=== PATIENT | male | born 1945 | race Caucasian/White ===

== ENCOUNTER 2018-02-10 01:38 | Outpatient (RCR) | payer OTHER, SELFPAY ==
[2018-02-10] MEDS: Normal Saline Flush 10 ML SYR IVP (12:35)
[2018-02-10] MEDS: Heparin 500 UNITS/5 ML SYRINGE IV (12:35)
[2018-02-10 13:04] LABS: Abs Immature Grans 0.01 k/cumm (0.0-0.09); Absolute Basophil Count 0.06 k/cumm (0.0-0.2); Absolute Eosinophil Count 0.32 k/cumm (0.0-0.7); Absolute Lymphocyte Count 1.71 k/cumm (1.2-3.4); Absolute Monocyte Count 0.73 k/cumm (0.11-0.7); Absolute Neutrophil Count 3.35 k/cumm (1.2-6.7); Eosinophils % 5.2; HCT 45.8 % (40.0-50.0); HGB 15.3 g/dL (13.5-17.5); Immature Grans % 0.2; Lymphocytes % 27.7; Mean Corp. HGB Concentration 33.4 g/dL (32.0-36.0); Mean Corpuscular Hemoglobin 29.1 pg (27.0-33.0); Mean Corpuscular Volume 87.2 fL (80-95); Mean Platelet Volume 11.2 fL (8.0-11.0); Monocytes % 11.8; Neutrophils % 54.1; Platelet Count 161 x1000/uL (130-400); RBC 5.25 m/cumm (4.50-6.00); RBC Distribution Width 14.8 % (11.8-14.1); White Blood Cell Count 6.18 k/cumm (4.4-10.8)
[2018-02-10 13:13] LABS: ALT 22 U/L (12-78); AST 25 U/L (15-37); Albumin 3.2 g/dL (3.4-5.0); Alkaline Phosphatase 108 U/L (46-116); Anion Gap 5.3 mmol/L (3-11); BUN 17 mg/dL (7-18); Bilirubin, Total 0.5 mg/dL (0.2-1.0); CO2 25.7 mmol/L (21.0-32.0); CREATININE 1.02 mg/dL (0.70-1.30); Calcium 8.5 mg/dL (8.5-10.1); Chloride 103 mmol/L (98-107); Glucose 104 mg/dL (70-100); Potassium 4.1 mmol/L (3.5-5.1); Sodium 134 mmol/L (136-145); Total Protein 7.7 g/dL (6.4-8.2)
== END 2018-02-27 23:59 | disposition home or self-care (01) ==
LOC: INF 01:38
PROVIDERS: PCP Nurse Practitioner Family; Visit Provider Internal Medicine Medical Oncology
DX: C34.91 Malignant neoplasm of unspecified part of right bronchus or lung (principal); E03.2 Hypothyroidism due to medicaments and other exogenous substances; Z45.2 Encounter for adjustment and management of vascular access device
CPT/HCPCS: 36591; 80053; 85025

== ENCOUNTER 2018-05-19 13:56 | Outpatient (RCR) | payer OTHER, SELFPAY ==
[2018-05-19] MEDS: Heparin 500 UNITS/5 ML SYRINGE IV (14:11)
[2018-05-19] MEDS: Normal Saline Flush 10 ML SYR IVP (14:11)
[2018-05-19 14:21] LABS: Abs Immature Grans 0.02 k/cumm (0.0-0.09); Absolute Basophil Count 0.06 k/cumm (0.0-0.2); Absolute Eosinophil Count 0.22 k/cumm (0.0-0.7); Absolute Monocyte Count 0.72 k/cumm (0.11-0.7); Absolute Neutrophil Count 3.68 k/cumm (1.2-6.7); Basophils % 0.9; Eosinophils % 3.4; HCT 45.6 % (40.0-50.0); HGB 15.1 g/dL (13.5-17.5); Immature Grans % 0.3; Lymphocytes % 26.6; Mean Corp. HGB Concentration 33.1 g/dL (32.0-36.0); Mean Corpuscular Volume 87.7 fL (80-95); Mean Platelet Volume 10.9 fL (8.0-11.0); Monocytes % 11.3; Neutrophils % 57.5; Platelet Count 242 x1000/uL (130-400); RBC Distribution Width 13.9 % (11.8-14.1)
[2018-05-19 14:34] LABS: ALT 23 U/L (12-78); AST 27 U/L (15-37); Alkaline Phosphatase 105 U/L (46-116); Anion Gap 8.6 mmol/L (3-11); BUN 20 mg/dL (7-18); Bilirubin, Total 0.3 mg/dL (0.2-1.0); CO2 25.4 mmol/L (21.0-32.0); CREATININE 0.98 mg/dL (0.70-1.30); Chloride 102 mmol/L (98-107); Glucose 86 mg/dL (70-100); Potassium 4.2 mmol/L (3.5-5.1); Sodium 136 mmol/L (136-145); Total Protein 7.9 g/dL (6.4-8.2)
== END 2018-05-30 23:59 | disposition home or self-care (01) ==
LOC: INF 13:56
PROVIDERS: PCP Nurse Practitioner Family; Visit Provider Internal Medicine Hematology & Oncology
DX: C34.91 Malignant neoplasm of unspecified part of right bronchus or lung (principal); E03.2 Hypothyroidism due to medicaments and other exogenous substances; Z45.2 Encounter for adjustment and management of vascular access device
CPT/HCPCS: 36591; 80053; 85025

== ENCOUNTER 2018-08-18 12:00 | Outpatient (RCR) | payer OTHER, SELFPAY ==
[2018-08-01 13:59] LABS: Carboxyhemoglobin 2.2 %
[2018-08-18] MEDS: Heparin 500 UNITS/5 ML SYRINGE IV (12:25)
[2018-08-18] MEDS: Normal Saline Flush 10 ML SYR IVP (12:25)
[2018-08-18 12:51] LABS: Abs Immature Grans 0.01 k/cumm (0.0-0.09); Absolute Basophil Count 0.07 k/cumm (0.0-0.2); Absolute Eosinophil Count 0.34 k/cumm (0.0-0.7); Absolute Lymphocyte Count 1.41 k/cumm (1.2-3.4); Absolute Monocyte Count 0.64 k/cumm (0.11-0.7); Absolute Neutrophil Count 3.79 k/cumm (1.2-6.7); Basophils % 1.1; Eosinophils % 5.4; HCT 46.9 % (40.0-50.0); HGB 15.6 g/dL (13.5-17.5); Immature Grans % 0.2; Lymphocytes % 22.5; Mean Corp. HGB Concentration 33.3 g/dL (32.0-36.0); Mean Corpuscular Hemoglobin 29.2 pg (27.0-33.0); Mean Corpuscular Volume 87.7 fL (80-95); Mean Platelet Volume 11.4 fL (8.0-11.0); Monocytes % 10.2; Neutrophils % 60.6; Platelet Count 164 x1000/uL (130-400); RBC 5.35 m/cumm (4.50-6.00); RBC Distribution Width 14.5 % (11.8-14.1); White Blood Cell Count 6.26 k/cumm (4.4-10.8)
[2018-08-18 13:25] LABS: ALT 20 U/L (12-78); AST 24 U/L (15-37); Albumin 3.4 g/dL (3.4-5.0); Alkaline Phosphatase 99 U/L (46-116); BUN 17 mg/dL (7-18); Bilirubin, Total 0.5 mg/dL (0.2-1.0); CREATININE 0.95 mg/dL (0.70-1.30); Calcium 8.8 mg/dL (8.5-10.1); Chloride 103 mmol/L (98-107); Glucose 99 mg/dL (70-100); Potassium 4.1 mmol/L (3.5-5.1); Sodium 137 mmol/L (136-145); T4 7.8 ug/dL (4.5-12.5); TSH 1.28 uIU/mL (0.358-3.74); Total Protein 7.7 g/dL (6.4-8.2)
== END 2018-08-28 23:59 | disposition home or self-care (01) ==
LOC: INF 12:00
PROVIDERS: PCP Nurse Practitioner Family; Visit Provider Internal Medicine Hematology & Oncology
DX: C34.91 Malignant neoplasm of unspecified part of right bronchus or lung (principal); E03.2 Hypothyroidism due to medicaments and other exogenous substances; Z45.2 Encounter for adjustment and management of vascular access device; R53.83 Other fatigue
CPT/HCPCS: 36591; 80053; 82375; 84436; 84443; 85025

== ENCOUNTER 2018-11-11 01:58 | Outpatient (CLI) | payer OTHER, SELFPAY ==
--- NOTE | 2018-11-11 15:50 | DI.RAD_ITS ---
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 The aorta is again noted to be tortuous. A port is seen, unchanged. There is scarring bilaterally in both upper lobes. No discrete mass or infiltrate is visible. There are stable compression fractures in the thoracic spine. IMPRESSION: Bilateral upper lobe scarring. If there is further concern of a mass, CT should be performed.
== END 2018-11-11 02:18 ==
PROVIDERS: PCP Nurse Practitioner Family; Visit Provider Internal Medicine Hematology & Oncology
DX: C34.91 Malignant neoplasm of unspecified part of right bronchus or lung (principal); J98.4 Other disorders of lung
CPT/HCPCS: 71046

== ENCOUNTER 2018-11-24 12:46 | Outpatient (RCR) | payer OTHER, SELFPAY ==
[2018-11-24] MEDS: Normal Saline Flush 10 ML SYR IVP (13:05)
[2018-11-24] MEDS: Heparin 500 UNITS/5 ML SYRINGE IV (13:06)
[2018-11-24 13:11] LABS: Abs Immature Grans 0.01 k/cumm (0.0-0.09); Absolute Basophil Count 0.07 k/cumm (0.0-0.2); Absolute Eosinophil Count 0.41 k/cumm (0.0-0.7); Absolute Lymphocyte Count 1.56 k/cumm (1.2-3.4); Absolute Monocyte Count 0.88 k/cumm (0.11-0.7); Absolute Neutrophil Count 3.85 k/cumm (1.2-6.7); HCT 47.5 % (40.0-50.0); HGB 15.9 g/dL (13.5-17.5); Immature Grans % 0.1; Mean Corp. HGB Concentration 33.5 g/dL (32.0-36.0); Mean Corpuscular Hemoglobin 29.3 pg (27.0-33.0); Mean Corpuscular Volume 87.5 fL (80-95); Mean Platelet Volume 11.5 fL (8.0-11.0); Neutrophils % 56.9; Platelet Count 170 x1000/uL (130-400); RBC 5.43 m/cumm (4.50-6.00); RBC Distribution Width 14.2 % (11.8-14.1); White Blood Cell Count 6.78 k/cumm (4.4-10.8)
[2018-11-24 13:21] LABS: ALT 19 U/L (12-78); AST 18 U/L (15-37); Albumin 3.3 g/dL (3.4-5.0); Alkaline Phosphatase 104 U/L (46-116); Anion Gap 8.2 mmol/L (3-11); BUN 17 mg/dL (7-18); Bilirubin, Total 0.5 mg/dL (0.2-1.0); CO2 25.8 mmol/L (21.0-32.0); CREATININE 1.01 mg/dL (0.70-1.30); Calcium 8.9 mg/dL (8.5-10.1); Chloride 104 mmol/L (98-107); Glucose 91 mg/dL (70-100); Potassium 4.4 mmol/L (3.5-5.1); Sodium 138 mmol/L (136-145); Total Protein 7.6 g/dL (6.4-8.2)
== END 2018-11-27 23:59 | disposition home or self-care (01) ==
LOC: INF 12:46
PROVIDERS: PCP Nurse Practitioner Family; Visit Provider Internal Medicine Hematology & Oncology
DX: C34.91 Malignant neoplasm of unspecified part of right bronchus or lung (principal); Z45.2 Encounter for adjustment and management of vascular access device
CPT/HCPCS: 36591; 80053; 85025

== ENCOUNTER 2019-03-14 01:29 | Outpatient (CLI) | payer OTHER, SELFPAY ==
--- NOTE | 2019-03-14 15:15 | DI.RAD_ITS ---
EXAM: XR CHEST 2V PA LATERAL CLINICAL HISTORY: F/U RT LUNG CA,C34.91 TECHNIQUE: COMPARISON: XR CHEST 2V PA LATERAL from 11/11/2018 FINDINGS: There is a left subclavian indwelling catheter. Heart is not enlarged. There are changes of pulmona ry scarring. No change in appearance comparison with previous chest film of 11/11/2018. No pleural effusion seen. Midthoracic compression fracture is again noted. IMPRESSION: No change from 11/11/2018.
== END 2019-03-14 01:49 ==
PROVIDERS: PCP Nurse Practitioner Family; Visit Provider Internal Medicine Hematology & Oncology
DX: C34.91 Malignant neoplasm of unspecified part of right bronchus or lung (principal); J98.4 Other disorders of lung
CPT/HCPCS: 71046

== ENCOUNTER 2019-03-23 12:02 | Outpatient (RCR) | payer OTHER, SELFPAY ==
[2019-03-23] MEDS: Normal Saline Flush 10 ML SYR 30 ML IVP (12:20)
[2019-03-23] MEDS: Heparin 500 UNITS/5 ML SYRINGE (12:25)
[2019-03-23 13:00] LABS: Abs Immature Grans 0.01 k/cumm (0.0-0.09); Absolute Basophil Count 0.06 k/cumm (0.0-0.2); Absolute Eosinophil Count 0.27 k/cumm (0.0-0.7); Absolute Lymphocyte Count 1.33 k/cumm (1.2-3.4); Absolute Monocyte Count 0.67 k/cumm (0.11-0.7); Absolute Neutrophil Count 3.63 k/cumm (1.2-6.7); Eosinophils % 4.5; HCT 47.7 % (40.0-50.0); HGB 15.9 g/dL (13.5-17.5); Immature Grans % 0.2; Lymphocytes % 22.3; Mean Corp. HGB Concentration 33.3 g/dL (32.0-36.0); Mean Corpuscular Hemoglobin 29.1 pg (27.0-33.0); Mean Corpuscular Volume 87.4 fL (80-95); Mean Platelet Volume 11.6 fL (8.0-11.0); Monocytes % 11.2; Neutrophils % 60.8; Platelet Count 188 x1000/uL (130-400); RBC 5.46 m/cumm (4.50-6.00); RBC Distribution Width 14.1 % (11.8-14.1); White Blood Cell Count 5.97 k/cumm (4.4-10.8)
[2019-03-23 13:07] LABS: ALT 26 U/L (16-63); AST 25 U/L (15-37); Albumin 3.5 g/dL (3.4-5.0); Alkaline Phosphatase 96 U/L (46-116); Anion Gap 11.4 mmol/L (3-11); BUN 14 mg/dL (7-18); Bilirubin, Total 0.5 mg/dL (0.2-1.0); CO2 22.6 mmol/L (21.0-32.0); CREATININE 0.99 mg/dL (0.70-1.30); Chloride 105 mmol/L (98-107); Glucose 86 mg/dL (70-100); Potassium 4.1 mmol/L (3.5-5.1); Sodium 139 mmol/L (136-145); Total Protein 7.7 g/dL (6.4-8.2)
== END 2019-03-30 23:59 | disposition home or self-care (01) ==
LOC: INF 12:02
PROVIDERS: PCP Nurse Practitioner Family; Visit Provider Internal Medicine Hematology & Oncology
DX: C34.91 Malignant neoplasm of unspecified part of right bronchus or lung (principal); Z45.2 Encounter for adjustment and management of vascular access device
CPT/HCPCS: 36591; 80053; 85025

== ENCOUNTER 2019-07-26 01:41 | Outpatient (CLI) | payer OTHER, SELFPAY ==
--- NOTE | 2019-07-26 | DI.CT_ITS ---
EXAM: CT CHEST/ABD/PEL W CLINICAL HISTORY: RT LUNG CA, C34.91, LIVER METS, C78.7 TECHNIQUE: Post IV and oral contrast. COMPARISON: PET/CT STANDARD (SKULL from 07/15/2015 and July,. CHEST ABD PELVIS WITH CONTRAST from 11/19/2015 CHEST ABD PELVIS WITH CONTRAST from 02/18/2016 ABD PELVIS WITH CONTRAST from 05/21/2016 XR CHEST 2V PA LATERAL from 03/14/2019 FINDINGS: Chest CT: Severe underlying emphysematous changes are again noted. There are areas of bilateral pulmo nary scarring. No mass or adenopathy is seen. There is no pleural or pericardial effusion. The heart size is normal. A port is noted over the left upper chest tip in the lower SVC. There are severe midt horacic compression fractures, stable from recent chest x-ray. Abdomen and pelvic CT: Tiny cyst is again noted in the caudate lobe of the liver. The spleen, gallbla dder, adrenals, pancreas and kidneys are unremarkable. There is an abdominal aortic aneurysm with mur al thrombus measuring 4.5 cm in diameter, not significantly changed from the previous exam. No bowel distention or wall thickening is seen. There is a moderate to increased quantity of stool. The bladde r and prostate are unremarkable. There is a mild compression fracture at L3, which appears new when c ompared with 2017. No lytic or blastic bony lesions are identified. IMPRESSION: 1. Severe emphysematous changes and bilateral areas of pulmonary scarring. No recurrence or metastati c disease or adenopathy. 2. No evidence of metastatic disease in the abdomen or pelvis. There is a stable 4.5 centimeter sacc ular abdominal aortic aneurysm.
[2019-07-26 12:47] LABS: Abs Immature Grans 0.01 k/cumm (0.0-0.09); Absolute Basophil Count 0.04 k/cumm (0.0-0.2); Absolute Eosinophil Count 0.38 k/cumm (0.0-0.7); Absolute Monocyte Count 0.64 k/cumm (0.11-0.7); Absolute Neutrophil Count 3.89 k/cumm (1.2-6.7); Basophils % 0.6; Immature Grans % 0.2 %; Mean Corp. HGB Concentration 33.3 g/dL (32.0-36.0); Mean Corpuscular Hemoglobin 29.1 pg (27.0-33.0); Mean Corpuscular Volume 87.4 fL (80-95); Monocytes % 10.1; Neutrophils % 61.1; Platelet Count 192 x1000/uL (130-400); RBC 5.49 m/cumm (4.50-6.00); RBC Distribution Width 14.2 % (11.8-14.1); White Blood Cell Count 6.36 k/cumm (4.4-10.8)
[2019-07-26 13:07] LABS: ALT 20 U/L (16-63); AST 23 U/L (15-37); Albumin 3.4 g/dL (3.4-5.0); Alkaline Phosphatase 97 U/L (46-116); Anion Gap 7.5 mmol/L (3-11); BUN 19 mg/dL (7-18); Bilirubin, Total 0.7 mg/dL (0.2-1.0); CO2 25.5 mmol/L (21.0-32.0); CREATININE 0.97 mg/dL (0.70-1.30); Calcium 8.6 mg/dL (8.5-10.1); Chloride 105 mmol/L (98-107); Glucose 86 mg/dL (74-106); Potassium 4.2 mmol/L (3.5-5.1); Sodium 138 mmol/L (136-145); TSH 0.91 uIU/mL (0.36-3.74); Total Protein 7.5 g/dL (6.4-8.2)
[2019-07-26] MEDS: Omnipaque 350 MG/ML 100 ML BTL IV (13:45)
[2019-07-26] MEDS: Normal Saline - Diluent 50 ML VIAL IV (13:46)
[2019-07-26] MEDS: Breeza Beverage 473 ML BTL PO ×2 (13:46→13:47)
[2019-07-26] MEDS: Omnipaque 350 MG/ML 50 ML BTL PO (13:47)
== END 2019-07-26 02:01 ==
PROVIDERS: PCP Nurse Practitioner Family; Visit Provider Internal Medicine Hematology & Oncology
DX: C34.91 Malignant neoplasm of unspecified part of right bronchus or lung (principal); C78.7 Secondary malignant neoplasm of liver and intrahepatic bile duct; J43.8 Other emphysema; J98.4 Other disorders of lung; K76.89 Other specified diseases of liver; I71.4 Abdominal aortic aneurysm, without rupture
CPT/HCPCS: 74177; 80053; 71260; 84443; 85025; J3490; Q9967

== ENCOUNTER 2019-07-26 01:57 | Outpatient (RCR) | payer OTHER, SELFPAY | END 2019-07-29 23:59 | disposition home or self-care (01) | LOC: INF 01:57 | PROVIDERS: PCP Nurse Practitioner Family; Visit Provider Internal Medicine Hematology & Oncology | DX: R69 Illness, unspecified (principal) ==

== ENCOUNTER 2020-01-10 14:30 | Outpatient (CLI) | payer OTHER, SELFPAY ==
--- NOTE | 2020-01-10 15:12 | DI.RAD_ITS ---
EXAM: XR CHEST 2V PA LATERAL CLINICAL HISTORY: SQUAMOUS CELL CARCINOMA OF RT LUNG, C34.91, F/U TECHNIQUE: 2D digital imaging was performed. COMPARISON: CR XR CHEST 2V PA LATERAL from 03/14/2019 FINDINGS: MEDIASTINUM: Normal. HEART: Normal. PULMONARY VASCULATURE: Tortuosity of the thoracic aorta is again noted. LUNGS: There is stable pulmonary scarring. COPD. The appearance of the lungs is unchanged compared to the prior examination. PLEURAL SPACE: No pleural effusion or pneumothorax. BONE:There are stable mid thoracic compression fracture deformities. Stable degenerative changes are seen in the spine. OTHER FINDINGS:The tip of the indwelling central venous catheter is in good position in the superior vena cava. IMPRESSION: No acute pulmonary process. No change in appearance of the chest x-ray since 03/14/2019. DATA REPOSITORY: RADIATION DOSE DELIVERED:
== END 2020-01-10 14:50 ==
PROVIDERS: PCP Nurse Practitioner Family; Visit Provider Internal Medicine Hematology & Oncology
DX: C34.91 Malignant neoplasm of unspecified part of right bronchus or lung (principal); J44.9 Chronic obstructive pulmonary disease, unspecified
CPT/HCPCS: 71046

== ENCOUNTER 2020-01-18 01:02 | Outpatient (RCR) | payer OTHER, SELFPAY ==
[2020-01-18] MEDS: Normal Saline Flush 10 ML SYR IVP (09:19)
[2020-01-18] MEDS: Heparin 500 UNITS/5 ML SYRINGE IV (09:19)
[2020-01-18 09:25] LABS: Abs Immature Grans 0.02 10^3/uL (0.0-0.06); Absolute Basophil Count 0.06 10^3/uL (0.0-0.2); Absolute Eosinophil Count 0.39 10^3/uL (0.0-0.7); Absolute Lymphocyte Count 1.28 10^3/uL (1.2-3.4); Absolute Monocyte Count 0.64 10^3/uL (0.1-0.8); Absolute Neutrophil Count 4.09 10^3/uL (1.2-6.7); Basophils % 0.9; HCT 49.3 % (40.0-50.0); Immature Grans % 0.3; Lymphocytes % 19.8; MCH 29.1 pg (27.0-33.0); MCHC 32.5 % (32.0-36.0); MCV 89.8 fL (80-95); Monocytes % 9.9; Neutrophils % 63.1; Nucleated RBC 0 %; Platelet Count 167 10^3/uL (130-400); RBC 5.49 10^6/uL (4.36-5.78); RDW 13.8 % (11.8-14.1); RDW-SD 45.2 fL; WBC 6.48 10^3/uL (4.4-10.8)
[2020-01-18 09:46] LABS: ALT 20 U/L (16-63); AST 20 U/L (15-37); Albumin 3.2 g/dL (3.4-5.0); Alkaline Phosphatase 94 U/L (46-116); Anion Gap 9.2 mmol/L (3-11); BUN 16 mg/dL (7-18); Bilirubin, Total 0.6 mg/dL (0.2-1.0); CO2 24.8 mmol/L (21.0-32.0); CREATININE 1.09 mg/dL (0.70-1.30); Calcium 8.9 mg/dL (8.5-10.1); Chloride 104 mmol/L (98-107); Glucose 109 mg/dL (74-106); Sodium 138 mmol/L (136-145); TSH 1.21 uIU/mL (0.36-3.74); Total Protein 7.5 g/dL (6.4-8.2)
== END 2020-01-29 23:59 | disposition home or self-care (01) ==
LOC: INF 01:02
PROVIDERS: PCP Nurse Practitioner Family; Visit Provider Internal Medicine Hematology & Oncology
DX: C34.91 Malignant neoplasm of unspecified part of right bronchus or lung (principal); Z45.2 Encounter for adjustment and management of vascular access device
CPT/HCPCS: 36591; 80053; 84443; 85025

== ENCOUNTER 2020-03-12 16:27 | Inpatient (IN) | payer OTHER, SELFPAY ==
[2020-03-12] VITALS (28 sets, daily range): BP systolic 105–141; BP diastolic 60–90; PULSE 76–98; RESP 2–32; TEMP 36.8–38.5; O2SAT 74–98
--- NOTE | 2020-03-12 16:30 | DI.RAD_ITS ---
EXAM: XR PORTABLE CHEST AP CLINICAL HISTORY: SOB TECHNIQUE: 2D digital imaging was performed. COMPARISON: CR XR CHEST 2V PA LATERAL from 01/10/2020 FINDINGS: MEDIASTINUM: Normal. HEART: Normal. PULMONARY VASCULATURE: Normal. There is tortuosity of the thoracic aorta. LUNGS: Pulmonary fibrotic changes are present. There is hyperexpansion of the lungs suggesting under lying COPD. Mildly increased markings are seen in the lungs particularly in the left upper lobe. Th yoni findings may represent a developing pneumonia or interstitial edema. PLEURAL SPACE: No pleural effusion or pneumothorax. BONE:Within normal limits for the patient's age. OTHER FINDINGS:The patient's indwelling central venous catheter is stable. IMPRESSION: Increased lung markings present particularly in the left upper lobe. A developing infiltrate or inte rstitial edema cannot be excluded. Please correlate clinically. DATA REPOSITORY: RADIATION DOSE DELIVERED:
--- NOTE | 2020-03-12 16:30 | RT.EKG_ITS ---
APPROVED REPORT Exam: Resting ECG Patient Location: E HR:87 bpm ECG Measurements Heart Rate 87 AXIS IA 138 P 107 QRSd 107 QRS 70 QT 372 T 45 QTc 448 Conclusion Sinus rhythm...normal P axis, V-rate 60- 99 Probable inferior infarct, old...Q>35mS, II III aVF. No STEMI. I have reviewed and interpreted ECG and agree with software generated interpretation.
--- NOTE | 2020-03-12 16:31 | ED.GENADUL_ITS ---
Discharge Plan Disposition Patient Disposition: [facility] INPATIENT Condition: Poor Discharge Details Chief Complaint: SOB Clinical Impression: Pneumonia, Acute exacerbation of chronic obstructive pulmonary disease (COPD), Hypoxia Admit Date/Time: 03/12/20 18:07 Admit Provider: David Cardoza Attending Provider: David Cardoza Primary Care Provider: Priya Mendoza ED Provider: Xochilt Montesinos Discharge Instructions Activity:: Activity as Tolerated Equipment/Supplies:: nebulizer machine Diet:: As Tolerated Discharge Orders Discharge Orders: Discharge Order (Routine); Ordered 03/14/20 Ordered By: Jessica Lee Discharge Data Discharge Date/Time-TO BE ENTERED AT DEPARTURE: 03/12/20 18:55 Medical Decision Making Patient is a 75 year old male, accompanied by his , with c/c of SOB. Emmy hoffman hx of lung cancer and COPD. He states that he has had increasing SOB with associated cough x 1 week. reports fever at home with T max 101. He has had no known sick contacts. No recent travel. Denies CP. No GI upset. Alannah has inhaler at home but states that he has not been taking any of his medications. He has not received treatment for his lung cancer in 3 years. He is not an active smoker. Is a gamboa andhas continued to work. Presents today becuase the SOB has been interferring with his ADLS. On exam, patient appears to be in moderate respiratory distress. He is speaking in 1-2 word phrases. He was initially hypoxic in the 70s but did resond well to NC applied by nursing staff. He has accessory muscle usage. Patient has very diminished breath sounds throughout. Respiratory requested and at bed side. Patient receiving nebulizer, reports feeling improved although he continues to appear SOB. ECG reveals NSR, no acute infarct noted. CXR reviewed by radiologist: FINDINGS: Tubes, catheters and devices: Left indwelling central venous catheter with tip in SVC. Lungs: New patchy bilateral reticulonodular parenchymal opacities in both lungs, most marked in the upper lungs. These are likely due to infection or inflammation. Changes of emphysema. Pleural space: Unremarkable. No pleural effusion. No pneumothorax. Heart/Mediastinum: Unremarkable. No cardiomegaly. Vasculature: Calcified and tortuous thoracic aorta. Bones/joints: Bones are demineralized. IMPRESSION: 1. New patchy bilateral reticulonodular opacities, most marked in the upper lungs. 2. Emphysema. Labs reviewed. Patient has leukocytosis a white count of 11.8. But slightly low at 134. Patient does have a mild anion gap of 12. Troponin less than 0.05. Patient's history and imaging is most concerning for pneumonia. We will begin treatment with IV antibiotics. Patient is reporting feeling improved after 2 duo nebs delivered by respiratory therapy. However, I am quite concerned that patient is currently requiring oxygen continues to be short of breath with minimal movements. Admission would be appropriate. Will consult with hospitalist. Discussed case with hospitalist who agreed to admission. COVID testing sent HPI General Mode of arrival: wheelchair . Date/Time Provider Initiated Documentation: 03/12/20 16:31 . Limitations to Documentation: no limitations . Information obtained by: patient, family () and RN notes reviewed . History of Present Illness 75 year old M presents to the emergency department with the chief complaint of shortness of breath, described as severe and similar to prior episodes (feels similar to when patient has had pneumonia historically), with intensity rated at 1 (endorses small amount of right sided chest pain). Quality is described as aching, and is localized to the chest. Patient re ports no radiation. Patient started experiencing this day(s) (5) and it has been constant. Rest improves symptom(s), Movement worsens symptoms . Patient notes chest pain, cough, fever/chills, malaise and shortness of breath; denies diaphoresis, headaches, loss of appetite and nausea/vomiting. Patient did receive the following treatments prior to arrival, none Related Data Home Medications Medication Instructions Recorded Confirmed fluticasone propion-salmeterol 1 ea INHALATION BID 01/29/15 03/12/20 [Advair Diskus] aspirin 81 mg PO DAILY 03/12/20 03/12/20 Spiriva with HandiHaler 1 cap INHALATION DAILY 03/13/20 03/13/20 albuterol sulfate 2 puff INHALATION Q6H PRN 03/13/20 03/13/20 cefpodoxime 200 mg PO BID #10 tab 03/14/20 doxycycline hyclate 100 mg PO Q12H #10 cap 03/14/20 levalbuterol HCl 1.25 mg UPD Q6H PRN PRN #90 ml 03/14/20 omeprazole 20 mg PO DAILY #30 tab 03/14/20 prednisone See Rx Instructions .ROUTE 03/14/20 .COMPLEX #7 tab Previous Rx's Medication Instructions Recorded cefpodoxime 200 mg PO BID #10 tab 03/14/20 doxycycline hyclate 100 mg PO Q12H #10 cap 03/14/20 levalbuterol HCl 1.25 mg UPD Q6H PRN PRN #90 ml 03/14/20 omeprazole 20 mg PO DAILY #30 tab 03/14/20 prednisone See Rx Instructions .ROUTE 03/14/20 .COMPLEX #7 tab Allergies Allergy/AdvReac Type Severity Reaction Status Date / Time No Known Allergies Allergy Unverified 03/12/20 16:40 Review of Systems Constitutional Constitutional: Reports as per HPI, Reports chills, Reports fever(s), Denies headache(s), Denies lethargy and Denies poor appetite Eyes Eyes: Denies change in vision ENT Ears, Nose, Mouth, and Throat: Denies dizziness and Denies headache(s) Cardiovascular Cardiovascular: Reports as per HPI, Denies chest pain, Denies chest pain at rest, Denies chest pain with activity, Denies irregular heart rhythm, Reports lightheadedness, Denies radiating jaw, neck or arm pain, Reports dyspnea and Reports dyspnea on exertion Respiratory Respiratory: Reports as per HPI, Denies chest congestion, Denies cough, Denies pain on inspiration, Denies pain with cough, Reports dyspnea, Reports dyspnea on exertion and Denies wheezing Gastrointestinal Gastrointestinal: Reports as per HPI, Denies abdominal pain, Denies diarrhea, Denies nausea and Denies vomiting Genitourinary Genitourinary: Denies system reviewed and no additional complaints, except as documented (denies change in urinary habits) Musculoskeletal Musculoskeletal: Reports as per HPI and Denies back pain Integumentary/Breasts Skin/Breast: Reports as per HPI and Denies rash Neurologic Neurologic: Reports as per HPI, Denies dizziness and Denies headache(s) Allergic/Immunologic Allergic/Immunologic: Denies wheezing PFSH Medical History Anemia associated with chemotherapy Chronic respiratory failure with hypoxia COPD (chronic obstructive pulmonary disease) COPD (chronic obstructive pulmonary disease) Lung cancer Squamous cell lung cancer Surgical History Mediport placement (~01/2015) DR. MARCELINO HERRERA Social History Smoking/Tobacco Use Status: Former Tobacco Use Alcohol Intake: current Alcohol Intake frequency: a few times a month Drug use: Never Substance use type: does not use Do you feel safe at home: Yes Do you feel safe in your relationship?: Yes Exam Const General: cooperative, not healthy appearing, well developed, acute distress respiratory, anxious and ill appearing acutely Nutritional Appearance: well nourished and thin Orientation: alert, awake and oriented x3 HENMT Head: normal to inspection Ears: hearing grossly normal bilaterally Mouth: moist mucous membranes Chest Chest: normal inspection of the chest, normal palpation of entire chest wall and no crepitus Resp Effort & Inspection: not able to speak in complete sentences (1-2 word answers), no cough, labored, pursed lip breathing, retractions, tachypneic and uses accessory muscles Auscultation: diminished lung sounds bilaterally throughout, no rales, no rhonchi and no wheezes Cardio Rate: regular rate Rhythm: regular rhythm Heart Sounds: S1 normal and S2 normal GI Inspection: normal to inspection, no edema and non-distended Palpation: soft, no hepatosplenomegaly, not firm, no guarding, not rigid and nontender Auscultation: normal bowel sounds Back/Spine/Pelvis Back: no CVA tenderness Thoracic/Lumbar Spine: thoracic and lumbar spine normal to inspection Skin General skin exam: no rashes or lesions noted Trauma: no lacerations or abrasions Neuro General: patient alert, patient awake and patient oriented x3 Cognition: normal cognition Speech: speech normal Gait: normal gait Extrem General: normal to inspection, capillary refill normal, no pedal edema, no calf tenderness and normal gait Psych Appearance: grossly normal and well kempt Mental Status: mental status grossly normal Speech and Movement: speech and movement normal
[2020-03-12 16:57] LABS: Abs Immature Grans 0.07 10^3/uL (0.0-0.06); Absolute Basophil Count 0.04 10^3/uL (0.0-0.2); Absolute Eosinophil Count 0.02 10^3/uL (0.0-0.7); Absolute Monocyte Count 1.54 10^3/uL (0.1-0.8); Basophils % 0.3; Eosinophils % 0.2; HGB 14.6 g/dL (13.5-17.5); Immature Grans % 0.6; Lymphocytes % 7.6; MCH 29.3 pg (27.0-33.0); MCHC 33.2 % (32.0-36.0); MCV 88.2 fL (80-95); MPV 11.9 fL (8.0-11.0); Neutrophils % 78.3; Nucleated RBC 0 %; Platelet Count 168 10^3/uL (130-400); RBC 4.99 10^6/uL (4.36-5.78); RDW 13.4 % (11.8-14.1); RDW-SD 43.5 fL; WBC 11.87 10^3/uL (4.4-10.8)
[2020-03-12] MEDS: Albuterol/Ipratropium 3 ML UPD VIAL UPD ×2 (17:03→17:12)
[2020-03-12 17:15] LABS: Absolute Neutrophil Count 9.29 10^3/uL (1.2-6.7)
[2020-03-12 17:16] LABS: Diff Comment Agrees w/ Instrument; RBC Morphology Normal
[2020-03-12 17:25] LABS: ALT 18 U/L (16-63); AST 28 U/L (15-37); Albumin 2.6 g/dL (3.4-5.0); Alkaline Phosphatase 119 U/L (46-116); BUN 19 mg/dL (7-18); Bilirubin, Total 0.7 mg/dL (0.2-1.0); CREATININE 1.13 mg/dL (0.70-1.30); Calcium 8.4 mg/dL (8.5-10.1); Chloride 101 mmol/L (98-107); Glucose 150 mg/dL (74-106); Magnesium 1.9 mg/dL (1.8-2.4); NT-proBNP 393 pg/mL (<300); Potassium 3.5 mmol/L (3.5-5.1); Sodium 134 mmol/L (136-145); Total Protein 7.3 g/dL (6.4-8.2)
[2020-03-12 17:27] LABS: PTT Activated 27.2 sec (21.0-31.4); Prothrombin Time 10.5 sec (9.3-11.0)
[2020-03-12 17:28] LABS: Troponin I < 0.05 ng/mL (<0.06)
--- NOTE | 2020-03-12 18:00 | RESPIRATORY ---
RT called to ED concerning a patient with SOB and SpO2 78% on RA. Upon arrival, patient was on 2L NC and sating in low 90s in moderate distress but chatting with . Patient was given two duonebs in which he stated helped some but not alot. RT was informed that patients baseline is normally 1.5-2L NC as needed. Patient stated that he's been using his oxygen alot more often lately and is finding his inhalers are not helping him. Upon discharge, RT is going to get him a home nebulizer.
[2020-03-12] MEDS: cefTRIAXone 1 GM/50 ML BAG IVPB (18:15)
[2020-03-12] MEDS: Normal Saline 1,000 ML 500 ML IV (18:15)
[2020-03-12 18:46] LABS: Lactate 2.1 mmol/L (0.6-1.4)
[2020-03-12] MEDS: DOXYCYCLINE 100 MG in Normal Saline 100 ML IVPB (19:00)
--- NOTE | 2020-03-12 19:42 | HPE_ITS ---
Date of service: 03/12/20 Time of Service: 19:42 Assessment and Plan Assessment and plan (1) COPD (chronic obstructive pulmonary disease): Status: Acute Assessment and plan: With exacerbation secondary to Bilateral upper lobe PNA Cont Advair and Combivent. Albuterol nebs prn Solu-medrol 60 mg IV once then prednisone 40mg po QAM Improvement in SOA, hypoxia with nebs given in ED He endorsed not taking his prescribed inhalers; encourage compliance. He also has supplemental O2 prescribed for home use but hasn't been using it. (2) CAP (community acquired pneumonia): Status: Acute Assessment and plan: Bilateral upper lobe infiltrates. Rocephin and Doxycycline initiated in the ED Blood cultures obtained. History of Present Illness History of Present Illness Chief Complaint: Shortness of air Narrative: This is a 75 yo male with a h/o COPD, Lung CA, PNA, previous tobacco use. He presented to the ED with c/o Shortness of air that was described as severe. He endorsed feeling like he did in the past with pneumonia. Symptoms began appx 3 days prior to presented. + temp of 100F at home per . + chills and malaise. + aching R sided chest pain that doesn't radiate. No N/V/diaphoresis. In the ED he was only able to speak in one word sentences initially. His WBC count was 11.4. Troponin < 0.05. CXR with bilateral opacities in the upper lungs. + emphysematous changes. With duoneb treatments and supplemental O2 he improved and was speaking in comp lete sentences when arrived on the med-surg unit. Given his symptoms / findings he is a person under investigation for Covid-19. Rocephin and IV doxycycline in initiated in the ED Review of Systems All systems reviewed & are unremarkable except as noted in HPI and below PFSH Medical History COPD (chronic obstructive pulmonary disease) Lung cancer Surgical History Mediport placement (~01/2015) DR. MARCELINO HERRERA Social History Smoking/Tobacco Use Status: Former Tobacco Use Alcohol Intake: current Alcohol Intake frequency: a few times a month Drug use: Never Substance use type: does not use Do you feel safe at home: Yes Do you feel safe in your relationship?: Yes Meds Home Medications and Allergies Home Medications Medication Instructions Recorded Confirmed Type Combivent 2 puff INHALATION PRN PRN 01/29/15 03/12/20 History fluticasone propion-salmeterol 1 ea INHALATION BID 01/29/15 03/12/20 History [Advair Diskus] aspirin 81 mg PO DAILY 03/12/20 03/12/20 History Allergies Allergy/AdvReac Type Severity Reaction Status Date / Time No Known Allergies Allergy Unverified 03/12/20 16:40 Exam Const General: cooperative, no acute distress, frail appearing and ill appearing Nutritional Appearance: average body habitus Orientation: alert and oriented x3 Eyes Sclera: sclerae normal Pupils: PERRL Resp Effort & Inspection: normal respiratory effort Auscultation: clear to auscultation bilaterally and diminished lung sounds Cardio Jugular venous pressure: no JVD Rate: tachycardic Rhythm: regular rhythm Heart Sounds: S1 normal and S2 normal GI Palpation: soft and nontender Auscultation: normal bowel sounds Skin General skin exam: no rashes or lesions noted Extrem General: no pedal edema and no calf tenderness Psych Appearance: grossly normal Mental Status: mental status grossly normal Mood: congruent mood Affect: normal affect Attitude: cooperative Results Labs Result diagrams: 03/12/20 16:42 03/12/20 16:42 Labs: Laboratory Results - last 24 hr 03/12/20 03/12/20 03/12/20 16:42 16:42 16:42 WBC 11.87 H RBC 4.99 Hgb 14.6 Hct 44.0 MCV 88.2 MCH 29.3 MCHC 33.2 RDW 13.4 Plt Count 168 MPV 11.9 H Immature Gran % 0.6 Neutrophils % 78.3 Lymphocytes % 7.6 Monocytes % 13.0 Eosinophils % 0.2 Basophils % 0.3 Nucleated RBC % 0 Absolute Neutrophils 9.29 H Absolute Lymphocytes 0.90 L Absolute Monocytes 1.54 H Absolute Eosinophils 0.02 Absolute Basophils 0.04 RBC Morphology Normal PT 10.5 INR 1.0 APTT 27.2 VBG Lactate Sodium 134 L Potassium 3.5 Chloride 101 Carbon Dioxide 21.0 Anion Gap 12.0 H BUN 19 H Creatinine 1.13 Estimated GFR/1.73 m2 >= 60.00 Glucose 150 H Calcium 8.4 L Magnesium 1.9 Total Bilirubin 0.7 AST 28 ALT 18 Alkaline Phosphatase 119 H Troponin I < 0.05 NT-Pro-B Natriuret Pep 393 H Total Protein 7.3 Albumin 2.6 L 03/12/20 18:34 WBC RBC Hgb Hct MCV MCH MCHC RDW Plt Count MPV Immature Gran % Neutrophils % Lymphocytes % Monocytes % Eosinophils % Basophils % Nucleated RBC % Absolute Neutrophils Absolute Lymphocytes Absolute Monocytes Absolute Eosinophils Absolute Basophils RBC Morphology PT INR APTT VBG Lactate 2.1 H* Sodium Potassium Chloride Carbon Dioxide Anion Gap BUN Creatinine Estimated GFR/1.73 m2 Glucose Calcium Magnesium Total Bilirubin AST ALT Alkaline Phosphatase Troponin I NT-Pro-B Natriuret Pep Total Protein Albumin Last Vital Signs Temp 36.8 C 03/12/20 16:34 Pulse 97 H 03/12/20 18:31 Resp 15 03/12/20 18:31 BP 105/60 03/12/20 18:31 Pulse Ox 91 L 03/12/20 18:31 COVID-19 Screening Have you,or household,traveled outside [place] in last 14 days?: No Had IN PERSON contact w/suspected or confirmed C-19 person: No
[2020-03-12 20:04] LABS: Troponin I < 0.05 ng/mL (<0.06)
[2020-03-12] MEDS: Normal Saline Flush 10 ML SYR IVP (22:20)
[2020-03-12] MEDS: methylPREDNISolone SUCC 125 MG VIAL 60 MG IVP (22:21)
[2020-03-13] VITALS (43 sets, daily range): BP systolic 92–126; BP diastolic 46–83; PULSE 61–163; RESP 8–35; TEMP 35.7–38.1; O2SAT 81–97
[2020-03-13] MEDS: Acetaminophen 325 MG TAB 650 MG PO (00:38)
--- NOTE | 2020-03-13 01:00 | RT.EKG_ITS ---
APPROVED REPORT Exam: Resting ECG Patient Location: I HR:136 bpm ECG Measurements Heart Rate 136 AXIS NV [id number] P [id number] QRSd 96 QRS 70 QT 327 T -20 QTc 493 Conclusion Atrial fibrillation...V-rate 93-160, irreg A-activity Consider left ventricular hypertrophy...(S V1+R V5/V6) >3.50mV
[2020-03-13] MEDS: Metoprolol 5 MG/5 ML VIAL IVP ×2 (02:27→09:32)
[2020-03-13] MEDS: Normal Saline Flush 10 ML SYR IVP (02:28)
[2020-03-13] MEDS: Normal Saline 500 ML IV ×2 (02:36→09:17)
[2020-03-13 02:42] LABS: Lactate 1.6 mmol/L (0.6-1.4)
[2020-03-13 07:00] LABS: BE (Venous) -5 mmol/L (-2-3); HCO3 (Venous) 21 mmol/L (23-28); O2 Sat (Venous) 85 %; TCO2 (Venous) 18 mmol/L (24-29); pCO2 (Venous) 36 mmHg (41-51); pH (Venous) 7.36 (7.31-7.41); pO2 (Venous) 50 mmHg
[2020-03-13 07:05] LABS: Abs Immature Grans 0.04 10^3/uL (0.0-0.06); Absolute Basophil Count 0.01 10^3/uL (0.0-0.2); Absolute Lymphocyte Count 0.39 10^3/uL (1.2-3.4); Absolute Monocyte Count 0.25 10^3/uL (0.1-0.8); Absolute Neutrophil Count 7.03 10^3/uL (1.2-6.7); Basophils % 0.1; HCT 44.4 % (40.0-50.0); HGB 14.4 g/dL (13.5-17.5); Immature Grans % 0.5; Lymphocytes % 5.1; MCH 28.9 pg (27.0-33.0); MCHC 32.4 % (32.0-36.0); MCV 89.2 fL (80-95); MPV 12.2 fL (8.0-11.0); Monocytes % 3.2; Neutrophils % 91.1; Nucleated RBC 0 %; Platelet Count 155 10^3/uL (130-400); RBC 4.98 10^6/uL (4.36-5.78); RDW 13.5 % (11.8-14.1); RDW-SD 44.1 fL; WBC 7.72 10^3/uL (4.4-10.8)
[2020-03-13 07:13] LABS: Anion Gap 10.1 mmol/L (3-11); BUN 17 mg/dL (7-18); CO2 20.9 mmol/L (21.0-32.0); CREATININE 1.04 mg/dL (0.70-1.30); Calcium 8.4 mg/dL (8.5-10.1); Chloride 105 mmol/L (98-107); Glucose 164 mg/dL (74-106); Magnesium 2.1 mg/dL (1.8-2.4); Sodium 136 mmol/L (136-145)
--- NOTE | 2020-03-13 08:18 | W.PM.PROGNOT ---
Date of Service Date of service: 03/13/20 Time of Service: 10:40 Assessment and Plan Assessment and plan (1) Acute and chronic respiratory failure with hypoxia: Status: Acute Assessment and plan: Due to COPD exacerbation due to CAP. Continue antibiotics, steroids, nebs. The patient will need an ambulatory pulse ox check prior to discharge. COVID-19 negative. Check sputum cx. (2) CAP (community acquired pneumonia): Status: Acute Assessment and plan: As above (3) Acute exacerbation of chronic obstructive pulmonary disease (COPD): Status: Acute Assessment and plan: As above (4) Rapid atrial fibrillation: Status: Acute Assessment and plan: New diagnosis, but we do not actually know its duration. Echo ordered. Will start scheduled metoprolol. I changed nebs to atrovent and xopenex. We started a discussion about anticoagulation. Continue to monitor on tele. Consider transfer to ICU. (5) DVT prophylaxis: Status: Acute Assessment and plan: lovenox SC (6) Discharge planning issues: Status: Acute Assessment and plan: Full code Continues to require hospitalization. May have to be upgraded to the ICU. Subjective Subjective Interval history since last seen: Mr Dang states he feels so well today that he thinks he could go home. He is normally on 1 L of O2 prn, but is requiring 4L today. Remained in Afib overnight - asymptomatic - it was mostly under control since about 3 am until his morning meds were given. Denies chest pain, dizziness, nausea. Cough is nonproductive. Shortness of breath is better. HR is now in 130s after getting another dose of metoprolol for HR in 160s-180's x 1 hr. 4L NC -92-95%. BPs in the 90's. Low UOP this morning. The patient and I had a discussion about indications for blood thinners. He will think about them. Exam Narrative Exam Narrative: General: Pleasant elderly male, very slightly dyspneic on 4 L of O2, A&Ox3, able to complete sentences HEENT: EOMI, MMM Heart: irregularly irregular rhythm, no m/r/g Lungs: CTAB Abdomen: soft, nontender, nondistended Extremities: no e/c/c BLE's. Objective Last Vital Signs Temp 36.1 C L 03/13/20 03:59 Pulse 86 03/13/20 06:28 Resp 28 H 03/13/20 06:28 BP 94/70 L 03/13/20 06:28 Pulse Ox 94 03/13/20 06:28 Laboratory Results - last 24 hr 03/12/20 03/12/20 03/12/20 16:42 16:42 16:42 WBC 11.87 H RBC 4.99 Hgb 14.6 Hct 44.0 MCV 88.2 MCH 29.3 MCHC 33.2 RDW 13.4 Plt Count 168 MPV 11.9 H Immature Gran % 0.6 Neutrophils % 78.3 Lymphocytes % 7.6 Monocytes % 13.0 Eosinophils % 0.2 Basophils % 0.3 Nucleated RBC % 0 Absolute Neutrophils 9.29 H Absolute Lymphocytes 0.90 L Absolute Monocytes 1.54 H Absolute Eosinophils 0.02 Absolute Basophils 0.04 RBC Morphology Normal PT 10.5 INR 1.0 APTT 27.2 VBG pH VBG pCO2 VBG pO2 VBG HCO3 VBG Total CO2 VBG O2 Saturation VBG Base Excess VBG Lactate Sodium 134 L Potassium 3.5 Chloride 101 Carbon Dioxide 21.0 Anion Gap 12.0 H BUN 19 H Creatinine 1.13 Estimated GFR/1.73 m2 >= 60.00 Glucose 150 H Calcium 8.4 L Magnesium 1.9 Total Bilirubin 0.7 AST 28 ALT 18 Alkaline Phosphatase 119 H Troponin I < 0.05 NT-Pro-B Natriuret Pep 393 H Total Protein 7.3 Albumin 2.6 L 03/12/20 03/12/20 03/13/20 18:34 19:30 02:35 WBC RBC Hgb Hct MCV MCH MCHC RDW Plt Count MPV Immature Gran % Neutrophils % Lymphocytes % Monocytes % Eosinophils % Basophils % Nucleated RBC % Absolute Neutrophils Absolute Lymphocytes Absolute Monocytes Absolute Eosinophils Absolute Basophils RBC Morphology PT INR APTT VBG pH VBG pCO2 VBG pO2 VBG HCO3 VBG Total CO2 VBG O2 Saturation VBG Base Excess VBG Lactate 2.1 H* 1.6 H Sodium Potassium Chloride Carbon Dioxide Anion Gap BUN Creatinine Estimated GFR/1.73 m2 Glucose Calcium Magnesium Total Bilirubin AST ALT Alkaline Phosphatase Troponin I < 0.05 NT-Pro-B Natriuret Pep Total Protein Albumin 03/13/20 03/13/20 03/13/20 06:40 06:40 06:40 WBC 7.72 D RBC 4.98 Hgb 14.4 Hct 44.4 MCV 89.2 MCH 28.9 MCHC 32.4 RDW 13.5 Plt Count 155 MPV 12.2 H Immature Gran % 0.5 Neutrophils % 91.1 Lymphocytes % 5.1 Monocytes % 3.2 Eosinophils % 0.0 Basophils % 0.1 Nucleated RBC % 0 Absolute Neutrophils 7.03 H Absolute Lymphocytes 0.39 L Absolute Monocytes 0.25 Absolute Eosinophils 0.00 Absolute Basophils 0.01 RBC Morphology PT INR APTT VBG pH 7.36 VBG pCO2 36 L VBG pO2 50 VBG HCO3 21 L VBG Total CO2 18 L VBG O2 Saturation 85 VBG Base Excess -5 L VBG Lactate Sodium 136 Potassium 4.0 Chloride 105 Carbon Dioxide 20.9 L Anion Gap 10.1 BUN 17 Creatinine 1.04 Estimated GFR/1.73 m2 >= 60.00 Glucose 164 H Calcium 8.4 L Magnesium 2.1 Total Bilirubin AST ALT Alkaline Phosphatase Troponin I NT-Pro-B Natriuret Pep Total Protein Albumin
[2020-03-13 08:22] LABS: Troponin I < 0.05 ng/mL (<0.06)
[2020-03-13 08:34] LABS: COVID-19 RT-PCR UVMMC Result Negative (Negative)
[2020-03-13] MEDS: Aspirin 81 MG CHEW PO (09:00)
[2020-03-13] MEDS: Doxycycline Hyclate 100 MG CAP PO ×2 (09:01→19:32)
[2020-03-13] MEDS: predniSONE 20 MG TAB 40 MG PO (09:01)
[2020-03-13] MEDS: cefTRIAXone 1 GM/50 ML BAG IVPB (09:01)
[2020-03-13] MEDS: Enoxaparin 40 MG/0.4 ML SYR SC (09:02)
[2020-03-13] MEDS: Pantoprazole 40 MG VIAL IVP (09:02)
--- NOTE | 2020-03-13 10:00 | RT.EKG_ITS ---
APPROVED REPORT Exam: Resting ECG Patient Location: I HR:126 bpm ECG Measurements Heart Rate 126 AXIS [place] [id number] P [id number] QRSd 92 QRS 63 QT 336 T 0 QTc 486 Conclusion Atrial fibrillation with RVR
--- NOTE | 2020-03-13 10:29 | INITIAL_ITS ---
- If Service Date Differs Date of service: 03/13/20 Time of Service: 10:29 Care Management Initial Assess REASON FOR HOSPITALIZATION:: Bilateral PNA, SOB, Hypoxia PAST MEDICAL HISTORY/PAST SURGICAL HISTORY:: Medical History . COPD (chronic obstructive pulmonary disease). Lung cancer. Surgical History . Mediport placement (~01/2015). DR. MARCELINO HERRERA PREVIOUS FUNCTIONAL STATUS/SOCIAL/FAMILY SUPPORTS:: Callum lives in [place] with his , Amelia. They have two daughters who live locally and are supportive. 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 He is independent at baseline. CURRENT FUNCTIONAL STATUS:: Callum was sitting up in his bed when CM met with him. He was pleasant and engaged in conversation. He reported that he was feeling well today. Per report, he is currently requiring 4L of O2. His baseline is 1L PRN. There was also a concern regarding Afib, which has been under control since early this morning. CM will continue to follow. ADVANCE DIRECTIVES:: On file, Amelia listed as agent. Has patient been provided with info about the portal/API?: Yes Did the patient sign up for the portal?: No (Not interested) CODE STATUS:: Full Code INSURANCE COVERAGE / FINANCIAL ISSUES:: C, commercial MCR replacement CURRENT HOME/COMMUNITY SERVICES/EQUIPMENT:: No known equipment or services in the community. PRIMARY CARE PHYSICIAN:: Priya Mendoza POTENTIAL DISCHARGE NEEDS:: Evaluations for further needs, follow up appointments. PATIENT/FAMILY EDUCATION NEEDS:: Review discharge instructions regarding activity levels and medications, discussion of self care needs and goals of care. ANTICIPATED BARRIERS TO DISCHARGE:: None identified at this time. TRANSPORTATION:: Via private vehicle by family. PLAN:: Anticipate Callum will return home when medically cleared. His will drive him home when ready. He will follow up with his PCP and discharge plan of care.
--- NOTE | 2020-03-13 11:20 | NUR.NOTE ---
Patient converted to normal sinus rythm. EKG to be ordered. MD notified.Nursing Note:
--- NOTE | 2020-03-13 11:22 | NUR.NOTE ---
New IV placed in left AC number 20.Nursing Note:
--- NOTE | 2020-03-13 11:30 | RT.EKG_ITS ---
APPROVED REPORT Exam: Resting ECG Patient Location: I HR:66 bpm ECG Measurements Heart Rate 66 AXIS HI 142 P 54 QRSd 101 QRS 64 QT 440 T 35 QTc 461 Conclusion Sinus rhythm...normal P axis, V-rate 60- 99
--- NOTE | 2020-03-13 11:36 | NUR.NOTE ---
EKG performed to confirm normal sinus rythm.Nursing Note:
[2020-03-13] MEDS: Metoprolol 12.5 MG TAB PO ×2 (11:43→19:32)
--- NOTE | 2020-03-13 13:28 | NUR.NOTE ---
Patient undergoes echocardiogram in his room.Nursing Note:
--- NOTE | 2020-03-13 16:09 | PHA.REVIEW ---
Pharmacy Admission Review - Admission Clinical Review (Last Reviewed 03/12/20 @ 19:53 by David Cardoza MD) Discharge planning issues (Acute) DVT prophylaxis (Acute) Acute and chronic respiratory failure with hypoxia (Acute) Rapid atrial fibrillation (Acute) Acute exacerbation of chronic obstructive pulmonary disease (COPD) (Acute) CAP (community acquired pneumonia) (Acute) COPD (chronic obstructive pulmonary disease) (Acute) No Known Allergies Allergy (Unverified 03/12/20 16:40) Height 5 ft 6.14 in Weight 65.5 kg - Renal Dosing Renal Dosing: BUN 17 mg/dL (7-18) 03/13/20 06:40 Creatinine 1.04 mg/dL (0.70-1.30) 03/13/20 06:40 Medications needing adjustments: Reviewed - Anticoagulation Anticoagulation: Hgb 14.4 g/dL (13.5-17.5) 03/13/20 06:40 Hct 44.4 % (40.0-50.0) 03/13/20 06:40 Plt Count 155 10^3/uL (130-400) 03/13/20 06:40 INR 1.0 (0.9-1.1) 03/12/20 16:42 Creatinine 1.04 mg/dL (0.70-1.30) 03/13/20 06:40 DVT Prohphylaxis: Reviewed Medications: Enoxaparin Therapeutic Anticoagulation: Reviewed Medications: Aspirin - Opiate Usage Evaluate Pain Scale/Pains Meds: N/A - Relevant Labs Sodium 136 mmol/L (136-145) 03/13/20 06:40 Potassium 4.0 mmol/L (3.5-5.1) 03/13/20 06:40 Chloride 105 mmol/L (98-107) 03/13/20 06:40 Magnesium 2.1 mg/dL (1.8-2.4) 03/13/20 06:40 Electrolytes, C-Reactive P, ESR: Reviewed - DM Control DM Control: Glucose 164 mg/dL (74-106) H 03/13/20 06:40 Insulin Dosing: N/A - Heart Failure/LA Heart Failure/LA: Troponin I < 0.05 ng/mL (<0.06) 03/13/20 06:40 NT-Pro-B Natriuret Pep 393 pg/mL (<300) H 03/12/20 16:42 EF%, JANINE's, B-Blockers, Diuretics: Reviewed - BP Control BP Control: Blood Pressure 106/66 Blood Pressure 106/66 Blood Pressure 107/68 Blood Pressure 103/64 Blood Pressure 118/63 Blood Pressure 118/63 Blood Pressure 119/54 Blood Pressure 114/83 Blood Pressure 96/65 Blood Pressure 95/74 Blood Pressure 126/73 Blood Pressure 126/73 Blood Pressure 116/68 Blood Pressure 116/68 Blood Pressure 92/61 Blood Pressure 94/70 If elevated: Reviewed List meds needing interventions: low BPs recordered, holding parameters on metoprolol - Qtc Review If Elevated: Reviewed - IV to PO Switch IV Medications: Reviewed - Home Meds Home Med List reviewed: Reviewed Relevent Home Meds Not ordered & why?: spiriva -- has ipratropium nebs scheduled - Current meds Current Medication Order Review: Reviewed
[2020-03-13] MEDS: Ipratropium 0.5 MG/2.5 ML UPD VIAL UPD (18:21)
[2020-03-14] VITALS (10 sets, daily range): BP systolic 121–136; BP diastolic 60–80; PULSE 66–88; RESP 1–24; TEMP 36.4–36.9; O2SAT 88–99
[2020-03-14] MEDS: Ipratropium 0.5 MG/2.5 ML UPD VIAL UPD ×3 (00:11→12:44)
[2020-03-14] MEDS: Metoprolol 12.5 MG TAB PO ×2 (03:49→11:51)
[2020-03-14] MEDS: predniSONE 20 MG TAB 40 MG PO (08:12)
[2020-03-14] MEDS: Doxycycline Hyclate 100 MG CAP PO (08:12)
[2020-03-14] MEDS: Aspirin 81 MG CHEW PO (08:12)
[2020-03-14] MEDS: Pantoprazole 40 MG VIAL IVP (08:13)
[2020-03-14] MEDS: Normal Saline Flush 10 ML SYR IVP ×2 (08:13→17:02)
[2020-03-14] MEDS: Enoxaparin 40 MG/0.4 ML SYR SC (08:13)
[2020-03-14 08:20] LABS: Anion Gap 10.1 mmol/L (3-11); BUN 25 mg/dL (7-18); CO2 21.9 mmol/L (21.0-32.0); CREATININE 0.97 mg/dL (0.70-1.30); Calcium 8.8 mg/dL (8.5-10.1); Chloride 104 mmol/L (98-107); Glucose 108 mg/dL (74-106); Potassium 4.3 mmol/L (3.5-5.1); Sodium 136 mmol/L (136-145); TSH (W/Ref FT4) 0.27 uIU/mL (0.36-3.74)
[2020-03-14] MEDS: cefTRIAXone 1 GM/50 ML BAG IVPB (10:12)
--- NOTE | 2020-03-14 13:23 | W.PM.DS.N ---
Date of service: 03/14/20 Time of Service: 13:23 DS: Diagnosis Discharge Diagnosis (1) Sepsis: Status: Resolved (2) CAP (community acquired pneumonia): Status: Acute (3) Acute and chronic respiratory failure with hypoxia: Status: Resolved (4) Acute exacerbation of chronic obstructive pulmonary disease (COPD): Status: Acute (5) Rapid atrial fibrillation: Status: Resolved Asessment and Plan: Converted to NSR, CHADSVASC2 score of 1, <1% per year risk of CVA. On aspirin. (6) Pulmonary hypertension: Status: Chronic Asessment and Plan: RVSP 41 mmHg. (7) Low TSH level: Status: Acute (8) COVID-19 ruled out by laboratory testing: Status: Ruled-out Discharge Plan Disposition Patient Disposition: HOME Condition: Improving Discharge Details Reason For Visit: BILATERAL PNEUMONIA, SOB, HYPOXIA Admit Date/Time: 03/12/20 18:07 Admit Provider: David Cardoza Attending Provider: David Cardoza Primary Care Provider: Priya Mendoza [facility] Course Hospital Course: Mr Dang is a 75 year old male with PMHx of oxygen-dependent COPD, normally on 3L of O2 with activity and room air at rest (though he uses it in the exact opposite way), chronic hypoxic respiratory failure, lung ca in remission, and previous tobacco abuse, who was admitted to [facility] hospitalist service on 03/12/2020 with acute on chronic hypoxic respiratory failure due to sepsis caused by pneumonia (CAP) resulting in an acute exacerbation of his COPD. At the same time, the patient was also noted to have a new onset of rapid Afib. He was treated with doxycycline, ceftriaxone, prednisone, and nebulizer treatments. With this, we were able to bring his oxygen requirement down from 4 L to his baseline of Room air at rest (93%) and 3L with activity (90%). His leucocytosis and fever resolved. His blood cultures are negative to date, and his COVID-19 PCR came back negative. Sputum culture showed rarate WBCs, epithelial cells and rare gram positive cocci. For his afib, he did have to receive 2 doses of IV lopressor, but converted to NSR on hospital day 2. His Echo revealed LVEF of 53%, no wall motion abnormalities, normal atrial size for bilaterally, RVSP of 41 mmHg, and no hemodynamically significant valvular disease. His CHADSVASC score is, therefore 1, bringing his annual risk of stroke to about 0.6%. We discussed this, and at this time the patient will remain on aspirin 81 mg daily. He is getting discharged home with a cardiac event recorder. Given presence of pulmonary hypertension and Afib, LARA needs to be considered, and a sleep study could be pursued as outpatient, should the patient be agreeable. The patient did express to me that he understands that his breathing will never be normal again, that it is debilitating, and seemed to be in agreement with pursuing an outpatient palliative care consultation, for which we are sending a referral.The patient states that he feels better than his baseline and would like to go home today. We are sending him home with a nebulizer machine and xopenex nebs prn. He is to remain on his advair and spiriva. He will need to complete a total of 7 days of antibiotics. His PCP is to recheck his TSH level as outpatient, once he is doing being treated for this acute illness, as it was 0.27 on this admission, with normal FT4. Care for patient as well as completion of his discharge summary on day of discharge took 45 minutes. Home Meds and New Rx's Prescriptions: New doxycycline hyclate 100 mg Capsule 100 mg PO Q12H Qty: 10 RF: 0 levalbuterol HCl 1.25 mg/3 mL Solution For Nebulization 1.25 mg UPD Q6H PRN PRN (Reason: shortness of breath or wheezing) Qty: 90 RF: 0 prednisone 20 mg Tablet See Rx Instructions .ROUTE .COMPLEX Qty: 7 RF: 0 omeprazole 20 mg tablet,delayed release (DR/EC) 20 mg PO DAILY Qty: 30 RF: 0 cefpodoxime 200 mg tablet 200 mg PO BID Qty: 10 RF: 0 Continued fluticasone propion-salmeterol [Advair Diskus] 1 EACH blister with device 1 ea Inhalation BID RF: 0 aspirin 81 mg Tablet 81 mg PO DAILY RF: 0 Spiriva with HandiHaler 18 mcg capsule, w/inhalation device 1 cap INHALATION DAILY RF: 0 albuterol sulfate 90 mcg/actuation HFA aerosol inhaler 2 puff INHALATION Q6H PRN (Reason: Shortness Of Breath) RF: 0 Discharge Instructions Instructions: Doxycycline (By mouth), Prednisone (By mouth), Cefpodoxime Proxetil (By mouth), Levalbuterol (By breathing), COPD (Chronic Obstructive Pulmonary Disease) (DC), How to Use a Nebulizer (DC), Bacterial Pneumonia (DC) Additional Instructions: Finish your prednisone and antibiotics as prescribed. Return to the hospital with any fever, bleeding, chest pain, or wosening shortness of breath. Remember to wear your oxygen with activity! Follow up with your PCP within 1 week. Follow up with palliative care (referral is being sent). Care Plan Goals: Home with a referral to palliative care Stand Alone Forms: Nursing Discharge Form Referrals: [facility] [Provider Group] (The office will call with an appointment) Priya Mendoza [Primary Care Provider] - 03/28/20 1:35 pm Activity:: Activity as Tolerated Equipment/Supplies:: nebulizer machine Diet:: As Tolerated Discharge Orders Discharge Orders: Discharge Order (Routine); Ordered 03/14/20 Ordered By: Jessica Lee Other Ambulatory Orders: Cardiac Event Recorder (Outpt) (ONCE) Timeframe: 20200315 Facility: [facility] - Location: Respiratory Therapy Ordered By: Jessica Lee DS: Summary Status at Discharge Functional status at discharge: independent ambulation Overall status at discharge: patient is progressing back to baseline Mental Status: mental status grossly normal Speech and Movement: speech and movement normal Mood: congruent mood Affect: normal affect Exam Narrative Exam Narrative: General: Pleasant elderly male, slightly dyspneic on 1 L of O2 (at rest), looks better than yesterday, A&Ox3, able to complete sentences HEENT: EOMI, MMM Heart: RRR, no m/r/g Lungs: CTAB with good air movement Abdomen: soft, nontender, nondistended Extremities: no e/c/c BLE's. Psych Mental Status: mental status grossly normal Speech and Movement: speech and movement normal Mood: congruent mood Affect: normal affect DS: Data Vitals/I&O Vitals and I&O: Vital Signs Temperature 36.9 C 03/14/20 11:31 Temperature Source Skin 03/14/20 11:31 Pulse 80 03/14/20 12:45 Pulse Rhythm Regular 03/14/20 08:15 Pulse 72 03/13/20 18:47 Respiratory Rate 20 03/14/20 12:45 Respiratory Effort 03/14/20 08:15 Respiratory Depth Normal 03/14/20 08:15 Respiratory Pattern Normal 03/14/20 08:15 Blood Pressure 135/80 03/14/20 11:31 Blood Pressure Mean 78 03/13/20 18:47 Blood Pressure Position Supine 03/13/20 03:59 Pulse Oximetry 99 03/14/20 12:45 Oxygen Delivery Method Nasal Cannula 03/14/20 12:44 Oxygen Flow Rate 1 03/14/20 12:44 Pain Level 0 03/14/20 11:31 Comment 03/14/20 07:39 Intake & Output 03/13/20 03/14/20 03/14/20 23:59 11:59 23:59 Intake Total 1004 / 1900.667 390 / 390 Output Total 690 / 1040 1400 / 1400 Balance 314 / 860.667 -1010 / -1010 Intake: IV 500 / 916.667 90 / 90 Oral 504 / 984 300 / 300 Output: Urine 480 / 830 1400 / 1400 Post Void Residual 210 / 210 Other: Urine Color Yellow Yellow Urine Appearance Clear Clear Urine Odor None Normal Comment Output 200. mixed with tiny stool particles Stool Occult Blood Negative Stool Size Small Stool Characteristics Soft Formed Brown Voiding Methods Bedside Commode Bedside Commode Data Completed and Pending Completed studies during hospitalization [Text1]: CXR 03/12/2020: Increased lung markings present particularly in the left upper lobe. A developing infiltrate or interstitial edema cannot be excluded. Please correlate clinically. Echo 03/13/2020: Left Ventricle The left ventricle is normal size. The left ventricular systolic function is normal. The left ventricular ejection fraction is within the normal range. There is normal left ventricular wall thickness. There is normal LV segmental wall motion. There is no ventricular septal defect visualized. LVEF is 60%. Right Ventricle The right ventricle is normal size. The right ventricular systolic function is normal. The RVSP is 40.6mmHg. Atria Left atrium is mildly dilated. Right atrium is mildly dilated. The interatrial septum is intact with no evidence for an atrial septal defect. Aortic Valve The Aortic valve is sclerotic. Aortic valve is trileaflet. There is no aortic valvular stenosis. No aortic regurgitation is present. Mitral Valve Mild mitral annular calcification. No evidence of mitral valve stenosis. Trace mitral regurgitation. Tricuspid Valve The tricuspid valve is normal in structure. There is no tricuspid valve stenosis. Mild to moderate tricuspid regurgitation. Pulmonic Valve The pulmonary valve is normal in structure. There is no pulmonic valvular stenosis. There is no pulmonic valvular regurgitation. Great Vessels The aortic root is normal in size. The ascending aorta is normal in size. Aortic arch is normal in caliber. IVC is normal in size and collapses >50% with inspiration. Pericardium There is no pericardial effusion. Labs on day of discharge: Labs from last 24 hours 03/14/20 03/14/20 11:05 07:02 Sodium 136 Potassium 4.3 Chloride 104 Carbon Dioxide 21.9 Anion Gap 10.1 BUN 25 H Creatinine 0.97 Estimated GFR/1.73 m2 >= 60.00 Glucose 108 H D Calcium 8.8 Magnesium 2.0 TSH 0.27 L Free T4 1.30 Free T3 pg/mL Pending Total T3 Pending 03/13/20 21:15 Sputum - Expectorated Sputum Culture - Pending Preliminary micro results at discharge 03/13/20 21:15 Sputum Culture - Pending Sputum - Expectorated 03/12/20 16:49 Blood Culture - Preliminary Blood NO GROWTH 24 HOURS 03/12/20 18:34 Blood Culture - Preliminary Blood NO GROWTH 24 HOURS [facility] Medical History Anemia associated with chemotherapy Chronic respiratory failure with hypoxia COPD (chronic obstructive pulmonary disease) COPD (chronic obstructive pulmonary disease) Lung cancer Squamous cell lung cancer Surgical History Mediport placement (~01/2015) DR. MARCELINO HERRERA Social History Smoking/Tobacco Use Status: Former Tobacco Use Alcohol Intake: current Alcohol Intake frequency: a few times a month Drug use: Never Substance use type: does not use Do you feel safe at home: Yes Do you feel safe in your relationship?: Yes
--- NOTE | 2020-03-14 15:54 | PDOC.CMDIS ---
- If Service Date Differs Date of service: 03/14/20 Time of Service: 15:54 LACE Index Scoring Tool - Questions: Length of Stay (in days): 3 Acuity (Admit via E.D.?): Yes Comorbidities: Chronic Pulmonary Disease E.D. Visits: 1 - Answers: Total Score: 9 Risk of Readmission: Low Risk Care Management Discharge Reason for Hospitalization: Bilateral PNA, SOB, Hypoxia Discharge Plan: Callum will return home today with no additional services at this time. His will drive him home via private vehicle. He will follow up with his PCP and discharge plan of care. He is happy to be returning home. Patient/Family Education Needs: Review discharge instructions regarding activity levels and medications, discussion of self care needs including ask me three.
--- NOTE | 2020-03-14 16:04 | DI.VRAD_ITS ---
PROCEDURE INFORMATION: Exam: XR Chest, 1 View Exam date and time: 03/12/2020 4:58 PM Age: 75 years old Clinical indication: Other: SOB TECHNIQUE: Imaging protocol: XR of the chest Views: 1 view. COMPARISON: CR XR CHEST 2V PA LATERAL 01/10/2020 3:17 PM FINDINGS: Tubes, catheters and devices: Left indwelling central venous catheter with tip in SVC. Lungs: New patchy bilateral reticulonodular parenchymal opacities in both lungs, most marked in the upper lungs. These are likely due to infection or inflammation. Changes of emphysema. Pleural space: Unremarkable. No pleural effusion. No pneumothorax. Heart/Mediastinum: Unremarkable. No cardiomegaly. Vasculature: Calcified and tortuous thoracic aorta. Bones/joints: Bones are demineralized. IMPRESSION: 1. New patchy bilateral reticulonodular opacities, most marked in the upper lungs. 2. Emphysema. Dictated and Authenticated by: Kailyn Lambert MD. Ordering:JORDI Lemon MD
[2020-03-14 16:45] LABS: T3,Free 3.1 pg/mL (2.8-5.3)
[2020-03-14 17:01] LABS: T3, Total 98 ng/dL (97-169)
[2020-03-14] MEDS: Heparin 500 UNITS/5 ML SYRINGE IVP (17:03)
--- NOTE | 2020-04-19 08:24 | W.CARDEVENT ---
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 Average heart rate was 72. Minimum heart rate was 56 and maximum 102 There was no atrial fibrillation There was one 18 beat run of nonsustained ventricular tachycardia which occurred at 3:53 AM There were no pauses greater than 3 seconds ,no high-grade AV block
== END 2020-03-14 17:45 | disposition home or self-care (01) | DRG 871 ==
LOC: ER 18:49 → MS 19:03 → ICU 03-13 03:41 → MS 03-13 10:06 → ICU 03-13 10:07 → MS 03-13 22:29
PROVIDERS: Internal Medicine; Admitting Provider Family Medicine; Emergency Provider Physician Assistant; PCP Nurse Practitioner Family; Visit Provider Family Medicine
DX: A41.9 Sepsis, unspecified organism (principal); J18.9 Pneumonia, unspecified organism; J96.21 Acute and chronic respiratory failure with hypoxia; J44.0 Chronic obstructive pulmonary disease with (acute) lower respiratory infection; J44.1 Chronic obstructive pulmonary disease with (acute) exacerbation; Z11.59 Encounter for screening for other viral diseases; I27.20 Pulmonary hypertension, unspecified; I48.91 Unspecified atrial fibrillation; Z99.81 Dependence on supplemental oxygen; Z87.891 Personal history of nicotine dependence; Z85.118 Personal history of other malignant neoplasm of bronchus and lung
CPT/HCPCS: 36415; 80048; 80053; 82805; 87040; 90662; 93005; 93270; 94618; 94640; 96365; 99222; 99233; 99239; 99285; J1650; U0003; 71045; 83605; 83735; 83880; 84439; 84443; 84480; 84481; 84484; 85025; 85610; 85730; 87070; 87205; 93010; 93306; J0696; J2930; J3490; J7512; J7620; J7644

== ENCOUNTER 2020-07-11 01:24 | Outpatient (CLI) | payer OTHER, SELFPAY ==
--- NOTE | 2020-07-11 09:59 | DI.CT_ITS ---
EXAM: CT CHEST/ABD/PEL W CLINICAL HISTORY: RT LUNG CA, C34.91,ASSESS TREATMENT RESPONSE,LIVER METS,C78.7. TECHNIQUE: Imaging Protocol: Axial computed tomography images with coronal and sagittal reformatted images were created and reviewed CONTRAST MATERIAL: Intravenous: Omnipaque 350 Contrast volume:100 Oral: yes COMPARISON: CT CT CHEST/ABD/PEL W from 07/26/2019 FINDINGS: CHEST: Thyroid: Unremarkable. Tracheobronchial tree: Patent where visualized. Mediastinum and Lori: No dominant adenopathy or fluid collection. Pulmonary parenchyma: Severe emphysematous changes. Bilateral areas of scarring greatest in the uppe r lobes. Large right upper lobe bulla. No infiltrates or pulmonary nodules.. Pleura: No effusion or pneumothorax. Lymph nodes: Within normal limits. Aorta: Ascending measures 3.7 cm. No dissection. Pulmonary arteries: No emboli are visible. Heart: Normal size. Coronary artery calcifications. Bones: Stable mild T7 compression fracture. Stable severe T8 and T9 compression fractures. No lytic or blastic bony lesions. Degenerative changes. ABDOMEN: Liver: Normal density. No measurable mass. Gallbladder and biliary tract: No radiodense calculus or dilation. Pancreas: Normal density, no abnormal calcifications or inflammatory process. Spleen: Normal. Kidneys: Normal size, contour and axis. No radiodense stones or obstructive uropathy. No masses seen. Adrenal glands: No masses seen. 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 Mural thrombus is seen. The distal aorta and iliac arterie s are normal in diameter. Lymph nodes: Within normal limits. PELVIS: Bladder: Symmetric distention, no gross wall thickening. Bowel: Moderate to increased quantity of stool. No obstruction or bowel wall thickening. Peritoneal cavity: No ascites, collection or mesenteric inflammatory response. Bones: Degenerative changes and mild scoliosis. Stable mild compression of the superior endplate of L3. Reproductive organs: Within normal limits. IMPRESSION: Severe emphysematous changes and areas of scarring. No visible recurrence mass. No evidence of metastatic disease in the abdomen or pelvis. RADIATION DOSE DELIVERED: 1,085.74mGy.cm Total DLP DATA REPOSITORY: All CT scans at this facility are submitted to the National Radiology Data Registry (NRDR) Dose Index Registry (DIR) with the [employer] (A[employer]). RADIATION OPTIMIZATION: All CT scans at this facility use at least one of these dose optimization te chniques: automated exposure control; mA and/or kV adjustment per patient size (includes targeted exa ms where dose is matched to clinical indication); or iterative reconstruction.
[2020-07-11] MEDS: Normal Saline - Diluent 50 ML VIAL IV (10:03)
[2020-07-11] MEDS: Omnipaque 350 MG/ML 100 ML BTL IJ (10:04)
[2020-07-11] MEDS: Breeza Beverage 473 ML BTL PO ×2 (10:05→10:06)
[2020-07-11] MEDS: Omnipaque 350 MG/ML 50 ML BTL IJ (10:06)
== END 2020-07-11 01:25 ==
LOC: DI 01:24
PROVIDERS: PCP Nurse Practitioner Family; Visit Provider Internal Medicine Hematology & Oncology
DX: C34.91 Malignant neoplasm of unspecified part of right bronchus or lung (principal); C78.7 Secondary malignant neoplasm of liver and intrahepatic bile duct
CPT/HCPCS: 74177; 71260; J3490; Q9967

== ENCOUNTER 2020-07-11 02:17 | Outpatient (RCR) | payer OTHER, SELFPAY ==
[2020-07-11] MEDS: Normal Saline Flush 10 ML SYR IVP (08:07)
[2020-07-11] MEDS: Heparin 500 UNITS/5 ML SYRINGE (08:07)
[2020-07-11 08:12] LABS: Abs Immature Grans 0.02 10^3/uL (0.0-0.06); Absolute Basophil Count 0.08 10^3/uL (0.0-0.2); Absolute Eosinophil Count 0.42 10^3/uL (0.0-0.7); Absolute Lymphocyte Count 1.44 10^3/uL (1.2-3.4); Absolute Monocyte Count 0.69 10^3/uL (0.1-0.8); Absolute Neutrophil Count 3.32 10^3/uL (1.2-6.7); Basophils % 1.3; HCT 49.5 % (40.0-50.0); HGB 16.1 g/dL (13.5-17.5); Immature Grans % 0.3; Lymphocytes % 24.1; MCH 28.8 pg (27.0-33.0); MCHC 32.5 % (32.0-36.0); MCV 88.6 fL (80-95); MPV 10.8 fL (8.0-11.0); Monocytes % 11.6; Neutrophils % 55.7; Nucleated RBC 0 %; Platelet Count 181 10^3/uL (130-400); RBC 5.59 10^6/uL (4.36-5.78); RDW 13.7 % (11.8-14.1); RDW-SD 44.7 fL; WBC 5.97 10^3/uL (4.4-10.8)
[2020-07-11 08:34] LABS: ALT 23 U/L (16-63); AST 23 U/L (15-37); Albumin 3.4 g/dL (3.4-5.0); Alkaline Phosphatase 101 U/L (46-116); Anion Gap 8.2 mmol/L (3-11); BUN 16 mg/dL (7-18); Bilirubin, Total 0.6 mg/dL (0.2-1.0); CO2 24.8 mmol/L (21.0-32.0); CREATININE 1.1 mg/dL (0.70-1.30); Calcium 8.7 mg/dL (8.5-10.1); Chloride 106 mmol/L (98-107); Glucose 93 mg/dL (74-106); Potassium 4.2 mmol/L (3.5-5.1); Sodium 139 mmol/L (136-145); Total Protein 7.5 g/dL (6.4-8.2)
== END 2020-07-28 23:59 | disposition home or self-care (01) ==
LOC: INF 02:17
PROVIDERS: PCP Nurse Practitioner Family; Visit Provider Internal Medicine Hematology & Oncology
DX: C34.91 Malignant neoplasm of unspecified part of right bronchus or lung (principal)
CPT/HCPCS: 36591; 80053; 84443; 85025

== ENCOUNTER 2020-09-24 15:15 | Outpatient (REF) | payer OTHER, SELFPAY ==
[2020-09-24 20:58] LABS: Calculated LDL 123 mg/dL (<100); Cholesterol 195 mg/dL (<200); HDL Cholesterol 61 mg/dL (40-60); Triglyceride 55 mg/dL (<150)
== END 2020-09-24 15:16 | disposition home or self-care (01) ==
LOC: NCHCN 15:15
PROVIDERS: PCP Nurse Practitioner Family; Visit Provider Nurse Practitioner Family
DX: E78.89 Other lipoprotein metabolism disorders (principal)
CPT/HCPCS: 80061

== ENCOUNTER 2021-01-02 01:55 | Outpatient (CLI) | payer OTHER, SELFPAY ==
--- NOTE | 2021-01-02 | DI.CT_ITS ---
Exam(s) CT CHEST/ABD/PEL W EXAM: CT CHEST/ABD/PEL W CLINICAL HISTORY: H/O LUNG CA, S/P TREATMENT, LIVER METS,C78.7,C34.91. TECHNIQUE: Imaging Protocol: Axial computed tomography images with coronal and sagittal reformatted images were created and reviewed CONTRAST MATERIAL: Intravenous: Omnipaque 350 Contrast volume:100 ml Oral: None COMPARISON: CT CT CHEST/ABD/PEL W from 07/11/2020 FINDINGS: CHEST: LUNGS: Severe bilateral emphysematous changes and scarring are again noted. No new pulmonary mass no r pleural effusions. There are no fluid levels in any of the bullae. No new findings in the trachea and mainstem bronchi.. MEDIASTINUM: There is no hilar nor mediastinal adenopathy. Visualized thyroid unremarkable. CARDIAC: Heart size is normal. There is no pericardial effusion.Caliber of the thoracic aorta is wit hin normal limits. OSSEOUS: Previously described compression fractures of T7, T8, and T9 appear unchanged. No new compr ession fractures.. ABDOMEN: There is no ascites. LIVER: There are no focal hepatic lesions nor dilatation of intrahepatic ducts. Tiny [address] in medial aspect liver at junction right and caudate lobes is unchanged. GALLBLADDER/BILIARY: No obvious gallbladder pathology. CBD is not dilated. PANCREAS: No evidence of pancreatic mass nor dilatation of the pancreatic duct. SPLEEN: Spleen is not enlarged. There are no intrasplenic lesions. Splenic and portal veins are ross nt. ADRENALS: There are no significant adrenal masses. KIDNEYS: No calculi nor hydronephrosis. No solid renal masses. No cysts evident. ABDOMINAL AORTA: Previously described fusiform infrarenal abdominal aortic aneurysm is again noted wi th an unchanged amount of mural thrombus and exhibiting maximum external diameter 5.3 cm on today's s tudy. This is unchanged from the prior study. There is no significant aneurysmal dilatation common iliac arteries. LYMPH NODES: There is no retroperitoneal nor paraaortic adenopathy. ABDOMINAL WALL: No evidence of significant anterior abdominal wall hernia. GI: There is no evidence of bowel obstruction. PELVIS: LYMPH NODES: There is no intrapelvic nor inguinal adenopathy. GI: No evidence of appendicitis.No evidence of sigmoid diverticulitis. URINARY BLADDER: No calculi nor masses evident REPRODUCTIVE: Prostate size upper normal. OSSEOUS: No significant osseous lesions. L3 and L4 superior endplate indentations are unchanged. No new osseous lesions. IMPRESSION: 1. Compared to the prior CT scan of July 2020 there is again noted severe emphysematous and scarr ing changes in both lung painter but no evidence of recurrence mass, intrathoracic adenopathy, nor ple ural effusions. 2. There is also no evidence of metastatic disease in the abdomen and pelvis and no ascites. 3. There is a fusiform infrarenal abdominal aortic aneurysm which exhibits a maximum diameter 5.3 cm, unchanged from the previous study. The previous report mentioned 4.5 cm transverse. The 5.3 cm brennen surement described here is the largest external diameter measurement of this aorta and is unchanged f rom the July 2020 study. In addition, the character of the mural thrombus within the aneurysm is unchanged. There is no evidence of arterial megaly in the common iliac arteries beyond the aortic b ifurcation. RADIATION DOSE DELIVERED: 1,001.91mGy.cm Total DLP DATA REPOSITORY: All CT scans at this facility are submitted to the National Radiology Data Registry (NRDR) Dose Index Registry (DIR) with the [employer] (ACR). RADIATION OPTIMIZATION: All CT scans at this facility use at least one of these dose optimization te chniques: automated exposure control; mA and/or kV adjustment per patient size (includes targeted exa ms where dose is matched to clinical indication); or iterative reconstruction.
[2021-01-02] MEDS: Breeza Beverage 473 ML BTL PO ×2 (08:30→08:32)
[2021-01-02] MEDS: Omnipaque 350 MG/ML 50 ML BTL IJ (08:31)
[2021-01-02] MEDS: Omnipaque 350 MG/ML 100 ML BTL IJ (10:09)
[2021-01-02] MEDS: Normal Saline - Diluent 50 ML VIAL IV (10:09)
== END 2021-01-02 02:15 ==
PROVIDERS: PCP Nurse Practitioner Family; Visit Provider Nurse Practitioner Family
DX: C78.7 Secondary malignant neoplasm of liver and intrahepatic bile duct (principal); C34.91 Malignant neoplasm of unspecified part of right bronchus or lung; I71.4 Abdominal aortic aneurysm, without rupture; I21.9 Acute myocardial infarction, unspecified
CPT/HCPCS: 74177; 71260; J3490; Q9967

== ENCOUNTER 2021-01-02 03:11 | Outpatient (RCR) | payer OTHER, SELFPAY ==
[2021-01-02] MEDS: Heparin 500 UNITS/5 ML SYRINGE IV (08:10)
[2021-01-02] MEDS: Normal Saline Flush 10 ML SYR IVP (08:10)
[2021-01-02 08:12] LABS: Abs Immature Grans 0.03 10^3/uL (0.0-0.06); Absolute Basophil Count 0.08 10^3/uL (0.0-0.2); Absolute Lymphocyte Count 1.64 10^3/uL (1.2-3.4); Absolute Monocyte Count 0.74 10^3/uL (0.1-0.8); Absolute Neutrophil Count 3.78 10^3/uL (1.2-6.7); Basophils % 1.2; Eosinophils % 7.4; HCT 49.1 % (40.0-50.0); HGB 16.2 g/dL (13.5-17.5); Immature Grans % 0.4; Lymphocytes % 24.2; MCH 29.1 pg (27.0-33.0); MCV 88.2 fL (80-95); MPV 11.1 fL (8.0-11.0); Monocytes % 10.9; Neutrophils % 55.9; Nucleated RBC 0 %; Platelet Count 183 10^3/uL (130-400); RBC 5.57 10^6/uL (4.36-5.78); RDW 13.8 % (11.8-14.1); RDW-SD 44.2 fL; WBC 6.77 10^3/uL (4.4-10.8)
[2021-01-02 08:35] LABS: ALT 23 U/L (16-63); AST 19 U/L (15-37); Albumin 3.4 g/dL (3.4-5.0); Alkaline Phosphatase 98 U/L (46-116); Anion Gap 7.6 mmol/L (3-11); BUN 15 mg/dL (7-18); Bilirubin, Total 0.6 mg/dL (0.2-1.0); CO2 25.4 mmol/L (21.0-32.0); Calcium 8.7 mg/dL (8.5-10.1); Chloride 106 mmol/L (98-107); Glucose 91 mg/dL (74-106); Potassium 4.1 mmol/L (3.5-5.1); Sodium 139 mmol/L (136-145); Total Protein 7.5 g/dL (6.4-8.2)
[2021-01-02 09:46] LABS: TSH 1.61 uIU/mL (0.36-3.74)
== END 2021-01-28 23:59 | disposition home or self-care (01) ==
LOC: INF 03:11
PROVIDERS: Internal Medicine Hematology & Oncology; PCP Nurse Practitioner Family; Visit Provider Nurse Practitioner Family
DX: C34.91 Malignant neoplasm of unspecified part of right bronchus or lung (principal); Z45.2 Encounter for adjustment and management of vascular access device; E03.2 Hypothyroidism due to medicaments and other exogenous substances
CPT/HCPCS: 36591; 80053; 84443; 85025

== ENCOUNTER 2021-02-06 13:58 | Outpatient (RCR) | payer OTHER, SELFPAY ==
[2021-02-06] MEDS: Normal Saline Flush 10 ML SYR IVP (14:18)
[2021-02-06] MEDS: Heparin 500 UNITS/5 ML SYRINGE IV (14:19)
[2021-02-06 14:20] LABS: Abs Immature Grans 0.03 10^3/uL (0.0-0.06); Absolute Basophil Count 0.08 10^3/uL (0.0-0.2); Absolute Eosinophil Count 0.27 10^3/uL (0.0-0.7); Absolute Lymphocyte Count 1.43 10^3/uL (1.2-3.4); Absolute Monocyte Count 0.89 10^3/uL (0.1-0.8); Absolute Neutrophil Count 6.03 10^3/uL (1.2-6.7); Basophils % 0.9; Eosinophils % 3.1; HCT 48.9 % (40.0-50.0); Immature Grans % 0.3; Lymphocytes % 16.4; MCH 29.2 pg (27.0-33.0); MCHC 32.7 % (32.0-36.0); MCV 89.2 fL (80-95); MPV 11.2 fL (8.0-11.0); Monocytes % 10.2; Neutrophils % 69.1; Nucleated RBC 0 %; Platelet Count 184 10^3/uL (130-400); RBC 5.48 10^6/uL (4.36-5.78); RDW 13.4 % (11.8-14.1); WBC 8.73 10^3/uL (4.4-10.8)
[2021-02-06 14:34] LABS: ALT 21 U/L (16-63); AST 23 U/L (15-37); Albumin 3.2 g/dL (3.4-5.0); Alkaline Phosphatase 97 U/L (46-116); Anion Gap 8.7 mmol/L (3-11); BUN 18 mg/dL (7-18); Bilirubin, Total 0.5 mg/dL (0.2-1.0); CO2 24.3 mmol/L (21.0-32.0); CREATININE 1.2 mg/dL (0.70-1.30); Calcium 8.5 mg/dL (8.5-10.1); Chloride 106 mmol/L (98-107); Estimated GFR 59.02 (mL/min/1.73m2); Glucose 101 mg/dL (74-106); Potassium 4.4 mmol/L (3.5-5.1); Sodium 139 mmol/L (136-145); Total Protein 7.3 g/dL (6.4-8.2)
== END 2021-02-27 23:59 | disposition home or self-care (01) ==
LOC: INF 13:58
PROVIDERS: Internal Medicine Hematology & Oncology; PCP Nurse Practitioner Family; Visit Provider Nurse Practitioner Family
DX: C34.91 Malignant neoplasm of unspecified part of right bronchus or lung (principal); Z45.2 Encounter for adjustment and management of vascular access device
CPT/HCPCS: 36591; 80053; 85025

== ENCOUNTER 2021-07-10 11:31 | Emergency (ER) | payer OTHER, SELFPAY ==
[2021-07-10 11:37] VITALS: BP 141/97; PULSE 70; RESP 12; TEMP 36.1; O2SAT 97
--- NOTE | 2021-07-10 11:48 | W.ED.GENAD ---
Discharge Plan Disposition Patient Disposition: HOME Condition: Good Discharge Details Clinical Impression: Cramps of right lower extremity, Decreased vascular flow Primary Care Provider: Priya Mendoza ED Provider: Camilo Milligan Home Meds and New Rx's Prescriptions: Continued fluticasone propion-salmeterol [Advair Diskus] 1 EACH blister with device 1 ea Inhalation BID 0RF aspirin 81 mg Tablet 81 mg PO DAILY 0RF Spiriva with HandiHaler 18 mcg capsule, w/inhalation device 1 cap INHALATION DAILY 0RF Label Comments: INHALE THE CONTENTS OF ONE CAPSULE VIA HANDIHALER BY MOUTH EVERY DAY albuterol sulfate 90 mcg/actuation HFA aerosol inhaler 2 puff INHALATION Q6H PRN (Reason: Shortness Of Breath) 0RF Label Comments: INHALE 2 PUFFS BY MOUTH EVERY 6 HOURS NEEDED FOR COUGH AND SHORTNESS OF BREATH doxycycline hyclate 100 mg Capsule 100 mg PO Q12H Qty: 10 0RF levalbuterol HCl 1.25 mg/3 mL Solution For Nebulization 1.25 mg UPD Q6H PRN PRN (Reason: shortness of breath or wheezing) Qty: 90 0RF prednisone 20 mg Tablet See Rx Instructions .ROUTE .COMPLEX Qty: 7 0RF Rx Instructions: 40 mg PO daily x 2 days, then 20 mg PO daily x 3 days, then stop. omeprazole 20 mg tablet,delayed release (DR/EC) 20 mg PO DAILY Qty: 30 0RF cefpodoxime 200 mg tablet 200 mg PO BID Qty: 10 0RF Rx Instructions: must administer with a meal/food First dose in am on 03/15/2020. Discharge Instructions Instructions: Leg Cramps (ED) Additional Instructions: At this time your cramping is resolved, and I see no evidence of tearing or ripping of any of your muscles. No evidence of blood clots either. However, your dorsalis pedis pulse is slightly reduced, and bedside ultrasound shows that the flow is limited compared to the left foot. Your other blood vessels in your right foot demonstrate good flow, but this decrease in flow may preclude you to some increased pain and cramping in your foot. Please take a full dose aspirin (325mg) every day and follow-up closely with your primary care provider for reassessment. Please drink plenty of fluids, stay well-hydrated, and eat foods high in potassium like bananas, legumes and avocados. If you notice any worsening of your symptoms, or any new symptoms such as vomiting, diarrhea, fever, chills, shortness of breath, chest pain, numbness, weakness, or fainting , please return immediately to the emergency department for reevaluation. Please follow up with your primary care provider as soon as possible for reassessment and reevaluation. As always, it was a pleasure participating in your medical care today. Referrals: Priya Mendoza [Primary Care Provider] - Medical Decision Making 76-year-old male with a past medical history of COPD, previous lung cancer with subsequent anemia from chemotherapy, who was subsequently recovered, with a diagnosis of atrial fibrillation on his last admission here, who presents today for evaluation of right leg cramp. Patient states that he regularly gets leg cramps, and he was out moving a few cords of wood this afternoon. While doing it he developed a right calf cramp, it lasted a bit longer than normal and was a bit more painful than normal. Because of this he did come into the ER for evaluation to make sure there was no tears of the muscle or any other abnormality. He states that his pain has pretty much resolved at this point. He denies any current numbness or tingling. He does feel that his right toes are little bit colder than normal. He denies any trauma, he states that no wood fell on his foot or leg. He denies any new numbness tingling or weakness. No other complaints at this time. No other modifying factors. He denies chest pain, shortness of breath, vomiting, diarrhea. He has been taking his daily baby aspirin. Physical exam demonstrate no evidence of ligamentous or muscular tear. He demonstrates normal strength throughout. However the patient's posterior tibial pulses +2 with excellent flow on ultrasound with dorsalis pedis pulse was hard to palpate, with only a minimal amount visible on bedside syndrome. However collateral flow is adequate and she demonstrate adequate capillary refill for all of his toes with no evidence of pallor or arterial deficit. Pain is completely gone at this point. I feel that these findings are likely incidental, and that his symptoms more closely represent a recent muscle spasm. I did discuss endovascular repair and stenting options, and he has excellent femoral pulses. 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 In the meantime I have recommended that he drink plenty of fluids, and increase his daily aspirin to 325 mg/day. I will copy his note to his primary care provider and recommend that he follows up closely with her further discussion. At this time there is no evidence of an avascular limb, or acute limb whatsoever. However I did discuss signs and symptoms that would represent merit for prompt return. I have extensively reviewed the treatment plan and discharge instructions with the patient. I have addressed all patient concerns at this time. The patient was made aware of what symptoms to monitor for that would warrant a return to the emergency department. Discussed the plan with the patient, they demonstrate verbal understanding and agreement with our assessment and plan at this time. The documentation in this chart was dictated using [employer] dictation software. Please excuse any dictation errors. HPI General Date/Time Provider Initiated Documentation: 07/10/21 11:31. HPI Narrative: 76-year-old male with a past medical history of COPD, previous lung cancer with subsequent anemia from chemotherapy, who was subsequently recovered, with a diagnosis of atrial fibrillation on his last admission here, who presents today for evaluation of right leg cramp. Patient states that he regularly gets leg cramps, and he was out moving a few cords of wood this afternoon. While doing it he developed a right calf cramp, it lasted a bit longer than normal and was a bit more painful than normal. Because of this he did come into the ER for evaluation to make sure there was no tears of the muscle or any other abnormality. He states that his pain has pretty much resolved at this point. He denies any current numbness or tingling. He does feel that his right toes are little bit colder than normal. He denies any trauma, he states that no wood fell on his foot or leg. He denies any new numbness tingling or weakness. No other complaints at this time. No other modifying factors. He denies chest pain, shortness of breath, vomiting, diarrhea. He has been taking his daily baby aspirin. Related Data Home Medications Medication Instructions Recorded Confirmed fluticasone 250 mcg-salmeterol 50 1 ea INHALATION BID 01/29/15 03/12/20 mcg/dose blistr powdr for inhalation (Advair Diskus) aspirin 81 mg tablet 81 mg PO DAILY 03/12/20 03/12/20 albuterol sulfate 90 mcg/actuation 2 puff INHALATION Q6H PRN 03/13/20 03/13/20 aerosol inhaler tiotropium bromide 18 mcg capsule 1 cap INHALATION DAILY 03/13/20 03/13/20 with inhalation device (Spiriva with HandiHaler) levalbuterol HCl 1.25 mg/3 mL 1.25 mg (3 mL) UPD Q6H PRN PRN #90 03/14/20 solution for nebulization ml omeprazole 20 mg tablet,delayed 20 mg PO DAILY #30 tab 03/14/20 release Previous Rx's Medication Instructions Recorded levalbuterol HCl 1.25 mg/3 mL 1.25 mg (3 mL) UPD Q6H PRN PRN #90 03/14/20 solution for nebulization ml omeprazole 20 mg tablet,delayed 20 mg PO DAILY #30 tab 03/14/20 release Allergies Allergy/AdvReac Type Severity Reaction Status Date / Time No Known Allergies Allergy Unverified 07/10/21 11:53 General RICHARD: 2 Review of Systems Narrative: 10 point review of systems was performed, pertinent positives and negatives are noted in the history of present illness. All others were otherwise negative. PFSH All Active Problems Hypoxia (Acute) Cramps of right lower extremity (Acute) Decreased vascular flow (Acute) Low TSH level (Acute) Pulmonary hypertension (Chronic) Discharge planning issues (Acute) DVT prophylaxis (Acute) Acute exacerbation of chronic obstructive pulmonary disease (COPD) (Acute) CAP (community acquired pneumonia) (Acute) Pneumonia (Acute) Medical History Anemia associated with chemotherapy Chronic respiratory failure with hypoxia COPD (chronic obstructive pulmonary disease) COPD (chronic obstructive pulmonary disease) Lung cancer Squamous cell lung cancer Surgical History Mediport placement (~01/2015) DR. MARCELINO HERRERA Social History Smoking/Tobacco Use Status: Former Tobacco Use Smoking risk assessment performed?: Yes Alcohol Intake: current Alcohol Intake frequency: a few times a month Drug use: Never Substance use type: does not use Do you feel safe at home: Yes Do you feel safe in your relationship?: Yes Exam Narrative Exam Narrative: 1.Const: Well-nourished, Well-developed, appearing stated age 2.Eyes: PERRL, no conjunctival injection, and symmetrical lids. 3.ENT: Atraumatic external nose and ears. Moist MM. Neck: Symmetric, trachea midline, No thyromegaly. 4.CVS: +S1/S2, No murmurs or gallops. Peripheral pulses 2+ and equal in all extremities. Brisk capillary refill in all extremities. 5.RESP: Unlabored respiratory effort. Clear to auscultation bilaterally. No wheezes rales or rhonchi 6.GI: Soft, Nontender/Nondistended, No hepatosplenomegaly. No guarding or rebound. 7.MSK: Normocephalic/Atraumatic, Extremities w/o deformity or ttp No cyanosis or clubbing, Normal movement of all extremities Right lower extremity demonstrates no edema, redness, or pallor. No tenderness. Good sensation throughout. Strength is 5 out of 5 with good plantar and dorsiflexion. Good flexion extension of the knee. No evidence of trauma. Patient's left lower extremity demonstrates +2 dorsalis pedis and posterior pedal pulse. Patient's right lower extremity demonstrates 2+2 posterior tibial pulse, but no dorsalis pedis pulse. Patient demonstrates 3 to 4-second capillary refill for his left foot, and 5-second capillary refill for his right foot. Bedside ultrasound demonstrated excellent pulsatility and flow for right posterior tibial pulse, and minimal flow for dorsalis pedis pulse. However he demonstrates good generalized accessory flow and distal blood flow in the toes demonstrating good collateral flow. 8.Skin: Warm, Dry. No rashes or lesions. 9.Neuro: buyer tobacco head II-XII grossly intact. Sensation grossly intact, no focal neurologic deficits. 10.Psych: (AAO) x3. Appropriate mood and affect
== END 2021-07-10 12:17 | disposition home or self-care (01) ==
PROVIDERS: Emergency Provider Student in an Organized Health Care Education/Training Program; PCP Nurse Practitioner Family
DX: R25.2 Cramp and spasm (principal); I99.8 Other disorder of circulatory system
CPT/HCPCS: 99284; 99283

== ENCOUNTER 2021-08-14 03:22 | Outpatient (RCR) | payer MEDICARE, SELFPAY ==
[2021-08-14] MEDS: Heparin 500 UNITS/5 ML SYRINGE (09:40)
[2021-08-14] MEDS: Normal Saline Flush 10 ML SYR IVP (09:40)
[2021-08-14 09:52] LABS: Abs Immature Grans 0.02 10^3/uL (0.0-0.06); Absolute Basophil Count 0.08 10^3/uL (0.0-0.2); Absolute Eosinophil Count 0.33 10^3/uL (0.0-0.7); Absolute Lymphocyte Count 1.24 10^3/uL (1.2-3.4); Absolute Monocyte Count 0.71 10^3/uL (0.1-0.8); Absolute Neutrophil Count 3.57 10^3/uL (1.2-6.7); Basophils % 1.3; Eosinophils % 5.5; HGB 16.3 g/dL (13.5-17.5); Immature Grans % 0.3; Lymphocytes % 20.8; MCH 28.8 pg (27.0-33.0); MCHC 32.6 % (32.0-36.0); MCV 88.5 fL (80-95); MPV 11.4 fL (8.0-11.0); Monocytes % 11.9; Neutrophils % 60.2; Nucleated RBC 0 %; Platelet Count 167 10^3/uL (130-400); RBC 5.65 10^6/uL (4.36-5.78); RDW 14.4 % (11.8-14.1); RDW-SD 46.6 fL; WBC 5.95 10^3/uL (4.4-10.8)
[2021-08-14 10:14] LABS: ALT 22 U/L (16-63); AST 20 U/L (15-37); Albumin 3.6 g/dL (3.4-5.0); Alkaline Phosphatase 95 U/L (46-116); BUN 16 mg/dL (7-18); Bilirubin, Total 0.6 mg/dL (0.2-1.0); Calcium 8.8 mg/dL (8.5-10.1); Chloride 108 mmol/L (98-107); Glucose 74 mg/dL (74-106); Potassium 4.1 mmol/L (3.5-5.1); Sodium 140 mmol/L (136-145); TSH 1.19 uIU/mL (0.36-3.74); Total Protein 7.8 g/dL (6.4-8.2)
== END 2021-08-28 23:59 | disposition home or self-care (01) ==
LOC: INF 03:22
PROVIDERS: PCP Nurse Practitioner Family; Visit Provider Internal Medicine Hematology & Oncology
DX: C34.91 Malignant neoplasm of unspecified part of right bronchus or lung (principal); E03.2 Hypothyroidism due to medicaments and other exogenous substances; Z45.2 Encounter for adjustment and management of vascular access device
CPT/HCPCS: 36591; 80053; 84443; 85025

== ENCOUNTER 2022-01-31 17:31 | Emergency (ER) | payer MEDICARE, SELFPAY ==
[2022-01-31 17:35] VITALS: BP 130/91; PULSE 81; RESP 20; TEMP 36.7; O2SAT 93
[2022-01-31 18:35] VITALS: RESP 18
[2022-01-31 19:47] LABS: Abs Immature Grans 0.03 10^3/uL (0.0-0.06); Absolute Basophil Count 0.08 10^3/uL (0.0-0.2); Absolute Eosinophil Count 0.25 10^3/uL (0.0-0.7); Absolute Lymphocyte Count 1.09 10^3/uL (1.2-3.4); Absolute Monocyte Count 0.76 10^3/uL (0.1-0.8); Absolute Neutrophil Count 6.36 10^3/uL (1.2-6.7); Basophils % 0.9; Eosinophils % 2.9; HCT 47.3 % (40.0-50.0); HGB 16.2 g/dL (13.5-17.5); Immature Grans % 0.4; Lymphocytes % 12.7; MCH 29.5 pg (27.0-33.0); MCHC 34.2 % (32.0-36.0); MCV 86 fL (80-95); MPV 11.3 fL (8.0-11.0); Monocytes % 8.9; Neutrophils % 74.2; Platelet Count 153 10^3/uL (130-400); RDW 13.6 % (11.8-14.1); RDW-SD 43.2 fL; WBC 8.57 10^3/uL (4.4-10.8)
[2022-01-31 19:58] LABS: ALT 20 U/L (16-63); AST 26 U/L (15-37); Albumin 3.5 g/dL (3.4-5.0); Alkaline Phosphatase 90 U/L (46-116); Anion Gap 9.2 mmol/L (3-11); BUN 18 mg/dL (7-18); Bilirubin, Total 0.7 mg/dL (0.2-1.0); CO2 22.8 mmol/L (21.0-32.0); CREATININE 1.2 mg/dL (0.70-1.30); Calcium 9.1 mg/dL (8.5-10.1); Chloride 105 mmol/L (98-107); Estimated GFR 62.67 (mL/min/1.73m2); Glucose 103 mg/dL (74-106); Potassium 4.3 mmol/L (3.5-5.1); Sodium 137 mmol/L (136-145); Total Protein 7.6 g/dL (6.4-8.2)
--- NOTE | 2022-01-31 20:15 | ED.GENADUL_ITS ---
Discharge Plan Disposition Patient Disposition: HOME Condition: Improving Discharge Details Clinical Impression: Right leg pain Primary Care Provider: Priya Mendoza ED Provider: Audi Iqbal Home Meds and New Rx's Prescriptions: No Action fluticasone propion-salmeterol [Advair Diskus] 1 EACH blister with device 1 ea Inhalation BID aspirin 81 mg Tablet 81 mg PO DAILY Spiriva with HandiHaler 18 mcg capsule, w/inhalation device 1 cap INHALATION DAILY Label Comments: INHALE THE CONTENTS OF ONE CAPSULE VIA HANDIHALER BY MOUTH EVERY DAY albuterol sulfate 90 mcg/actuation HFA aerosol inhaler 2 puff INHALATION Q6H PRN (Reason: Shortness Of Breath) Label Comments: INHALE 2 PUFFS BY MOUTH EVERY 6 HOURS NEEDED FOR COUGH AND SHORTNESS OF BREATH levalbuterol HCl 1.25 mg/3 mL Solution For Nebulization 1.25 mg UPD Q6H PRN PRN (Reason: shortness of breath or wheezing) Qty: 90 0RF omeprazole 20 mg tablet,delayed release (DR/EC) 20 mg PO DAILY Qty: 30 0RF Discharge Instructions Instructions: Leg Pain (ED) Additional Instructions: Please call the radiology office on Wednesday to see if they are open. If they are open please schedule your DVT study for that day and follow-up in the ER. If they are not available on Wednesday please call on Wednesday due to the holiday. Pending the official ultrasound, and as discussed, please take 4 baby aspirin daily. If you change your mind and want to be placed upon the standard blood thinners please call back to the emergency department so that we can send a prescription to your pharmacy while waiting for the official ultrasound of your right leg. If you develop any new or significant worsening of your symptoms or further concerns return immediately to the emergency department for reassessment Referrals: Priya Mendoza [Primary Care Provider] - (As needed for follow up) Discharge Data Discharge Date/Time-TO BE ENTERED AT DEPARTURE: 01/31/22 21:11 Medical Decision Making Patient presenting to the emergency department for chief complaint of right lower leg pain. Patient does state acute trauma that happened 2 days ago that caused bruising and swelling to right lower leg. Today while he was helping he had some pain in his hip and also his right calf causing some discomfort and numbness to the foot. He states when attempting to put any weightbearing onto the leg it was severely painful. The hip pain has resolved but patient still endorses calf pain and foot pain. Physical exam does show acute traumatic findings to the right calf with ecchymosis and bruising and tenderness. Calf sizes equal bilateral at 33-1/2 cm 10 cm down from tibial plateau. Patient has good posterior tibial pulses sensation is intact along with range of motion. Differential diagnosis to include intermittent claudication, muscle spasm, L4- L5, and lower suspicion but still considered is thrombosis. Unofficial bedside ultrasound was utilized and it appears that full compressibility is noted to all the lower extremity vascular trigger. Posterior tibial pulse is easily identified but more difficult to identify dorsal pulse. Did review previous notes and it does seem that patient has had discussion in regards to decrease blood flow potential to the right lower leg. Patient is on a daily aspirin. After period of rest patient did state resolution of symptoms and was able to ambulate with minimal discomfort and states significant improvement. This was done pending lab test for evaluation of any electrolyte abnormalities causing leg cramping, low calcium, or elevated D-dimer. D-dimer is elevated otherwise labs are nondiagnostic. Discussed with patient risk versus benefit of anticoagulation pending official ultrasound of the right lower leg. After thorough discussion with both patient and significant other patient is refusing anticoagulants. He is agreeable to taking full-strength aspirin daily until DVT study can be completed. Patient clearly states understanding of risk of not taking standard therapy. Outpatient ultrasound was ordered and discussed with patient return and follow-up precautions pending ultrasound. After discussion of diagnosis and plan of care patient has no further needs, questions, or concerns and states clear understanding to return to the emergency department for any worsening symptoms. This documentation was generated using [employer] system, please disregard any oddities of phrase or misspellings. HPI General Mode of arrival: ambulatory . Date/Time Provider Initiated Documentation: 01/31/22 17:39 . Limitations to Documentation: no limitations . Information obtained by: patient, family, RN notes reviewed and old records reviewed . History of Present Illness 77 year old M presents to the emergency department with the chief complaint of Right lower leg pain, described as moderate and similar to prior episodes, with intensity rated at 8. Quality is described as sharp, and is localized to the right and lower extremity. Patient reports no radiation. Patient started experiencing this hour(s) (2) and it has been constant. No relieving factors improve symptom(s), Movement worsens symptoms . Patient notes no other symptoms.. Patient did receive the following treatments prior to arrival, other (Acetaminophen) Related Data Home Medications Medication Instructions Recorded Confirmed fluticasone 250 mcg-salmeterol 50 1 ea inhalation BID 01/29/15 01/31/22 mcg/dose blistr powdr for inhalation (Advair Diskus) aspirin 81 mg tablet 81 mg PO DAILY 03/12/20 01/31/22 albuterol sulfate 90 mcg/actuation 2 puff inhalation Q6H PRN 03/13/20 01/31/22 aerosol inhaler Shortness Of Breath tiotropium bromide 18 mcg capsule 1 cap inhalation DAILY 03/13/20 01/31/22 with inhalation device (Spiriva with HandiHaler) levalbuterol HCl 1.25 mg/3 mL 1.25 mg (3 mL) UPD Q6H PRN PRN 03/14/20 01/31/22 solution for nebulization shortness of breath or wheezing #90 mL omeprazole 20 mg tablet,delayed 20 mg PO DAILY #30 tabs 03/14/20 01/31/22 release Previous Rx's Medication Instructions Recorded levalbuterol HCl 1.25 mg/3 mL 1.25 mg (3 mL) UPD Q6H PRN PRN 03/14/20 solution for nebulization shortness of breath or wheezing #90 mL omeprazole 20 mg tablet,delayed 20 mg PO DAILY #30 tabs 03/14/20 release Allergies Allergy/AdvReac Type Severity Reaction Status Date / Time No Known Allergies Allergy Unverified 01/31/22 17:41 General Stated Complaint: Vascular RICHARD: 3 Review of Systems Constitutional Constitutional: Denies chills, Denies fever(s), Denies headache(s) and Reports weakness (Related to pain) ENT Ears, Nose, Mouth, and Throat: Denies headache(s) and Denies disequilibrium Cardiovascular Cardiovascular: Denies chest pain, Denies pedal edema, Denies edema and Denies dyspnea Respiratory Respiratory: Denies cough and Denies dyspnea Gastrointestinal Gastrointestinal: Denies abdominal pain Musculoskeletal Musculoskeletal: Reports as per HPI, Denies back pain, Denies arthralgias, Denies joint swelling, Reports muscle cramps, Reports radiating pain into limb and Reports tingling Integumentary/Breasts Skin/Breast: Reports unusual bruising and Denies wounds Neurologic Neurologic: Denies headache(s), Reports tingling, Denies disequilibrium and Reports weakness (Related to pain) PFSH All Active Problems (Updated 01/31/22 @ 20:53 by Audi Iqbal NP) Hypoxia (Acute) Right leg pain (Acute) Low TSH level (Acute) Pulmonary hypertension (Chronic) Discharge planning issues (Acute) DVT prophylaxis (Acute) Acute exacerbation of chronic obstructive pulmonary disease (COPD) (Acute) CAP (community acquired pneumonia) (Acute) Pneumonia (Acute) Medical History Anemia associated with chemotherapy Chronic respiratory failure with hypoxia COPD (chronic obstructive pulmonary disease) COPD (chronic obstructive pulmonary disease) Lung cancer Squamous cell lung cancer Surgical History Mediport placement (~01/2015) DR. MARCELINO HERRERA Social History Smoking/Tobacco Use Status: Former Tobacco Use Smoking risk assessment performed?: Yes Alcohol Intake: current Alcohol Intake frequency: a few times a month Drug use: Never Substance use type: does not use Do you feel safe at home: Yes Do you feel safe in your relationship?: Yes Exam Const General: cooperative, no acute distress and not ill appearing Orientation: alert, awake and oriented x3 Resp Effort & Inspection: normal respiratory effort, able to speak in complete sentences and no respiratory distress Cardio Rate: regular rate Rhythm: regular rhythm Heart Sounds: S1 normal and S2 normal Skin General skin exam: no rashes or lesions noted Neuro General: patient alert, patient awake, patient oriented x3, gait normal, tone normal, moves all extremities and no focal motor deficits Sensory Exam: no sensory deficits noted Extrem General: capillary refill normal and normal exam except as noted Right lower extremity: knee Details: normal to inspection and normal ROM, lower leg Details: tenderness Location: of the posterior calf, no edema and ecchymosis mid lower leg anteromedial Details: multiple; no localized swelling, no abrasions and no crepitus, ankle Details: normal to inspection and normal ROM; no tenderness and foot Details: normal capillary refill, normal to inspection, toes with normal ROM, no edema, vascular exam Details: dorsalis pedis pulse present, posterior tibial pulse present and normal capillary refill; not cool and no cyanosis, tendon exam Details: active flexion normal and active extension normal and motor-sensory exam Details: two point discrimination normal and light-touch normal; no tenderness, no abrasion, no laceration and no ecchymosis Left lower extremity: normal to inspection Course Vital Signs Vital signs: Vital Signs Temperature 36.7 C 01/31/22 17:35 Pulse 81 01/31/22 17:35 Respiratory Rate 20 01/31/22 17:35 Blood Pressure 130/91 H 01/31/22 17:35 Pulse Oximetry 93 01/31/22 17:35 Temperature 36.7 C 01/31/22 17:35 Temperature Source Temporal Artery Scan 01/31/22 17:35 Pulse 81 01/31/22 17:35 Respiratory Rate 18 01/31/22 18:35 Respiratory Effort 01/31/22 18:35 Respiratory Depth Normal 01/31/22 18:35 Respiratory Pattern Normal 01/31/22 18:35 Blood Pressure 130/91 H 01/31/22 17:35 Blood Pressure Position Sitting 01/31/22 17:35 Pulse Oximetry 93 01/31/22 17:35 Oxygen Delivery Method Room Air 01/31/22 17:35 Oxygen Flow Rate 0 01/31/22 17:35 Lab/Test Results Lab/Test Results: Laboratory Tests Range/Units 01/31/22 01/31/22 19:35 19:35 WBC (4.4-10.8) 10^3/uL 8.57 RBC (4.36-5.78) 10^6/uL 5.50 Hgb (13.5-17.5) g/dL 16.2 Hct (40.0-50.0) % 47.3 MCV (80-95) fL 86 MCH (27.0-33.0) pg 29.5 MCHC (32.0-36.0) % 34.2 RDW (11.8-14.1) % 13.6 Plt Count (130-400) 10^3/uL 153 MPV (8.0-11.0) fL 11.3 H Immature Gran % 0.4 Neutrophils % 74.2 Lymphocytes % 12.7 Monocytes % 8.9 Eosinophils % 2.9 Basophils % 0.9 Nucleated RBC % (0.0-0.3) % 0.0 Absolute Neutrophils (1.2-6.7) 10^3/uL 6.36 Absolute Lymphocytes (1.2-3.4) 10^3/uL 1.09 L Absolute Monocytes (0.1-0.8) 10^3/uL 0.76 Absolute Eosinophils (0.0-0.7) 10^3/uL 0.25 Absolute Basophils (0.0-0.2) 10^3/uL 0.08 Sodium (136-145) mmol/L 137 Potassium (3.5-5.1) mmol/L 4.3 Chloride (98-107) mmol/L 105 Carbon Dioxide (21.0-32.0) mmol/L 22.8 Anion Gap (3-11) mmol/L 9.2 BUN (7-18) mg/dL 18 Creatinine (0.70-1.30) mg/dL 1.2 Est GFR (CKD-EPI 2020) (mL/min/1.73m2) 62.67 Glucose (74-106) mg/dL 103 Calcium (8.5-10.1) mg/dL 9.1 Total Bilirubin (0.2-1.0) mg/dL 0.7 AST (15-37) U/L 26 ALT (16-63) U/L 20 Alkaline Phosphatase (46-116) U/L 90 Total Protein (6.4-8.2) g/dL 7.6 Albumin (3.4-5.0) g/dL 3.5
[2022-01-31 20:19] LABS: D-Dimer 4632 ng/mlFEU (<500)
== END 2022-01-31 21:11 | disposition home or self-care (01) ==
PROVIDERS: Emergency Provider Nurse Practitioner Family; PCP Nurse Practitioner Family
DX: S80.11XA Contusion of right lower leg, initial encounter (principal); R20.0 Anesthesia of skin; J44.9 Chronic obstructive pulmonary disease, unspecified; Z79.51 Long term (current) use of inhaled steroids; Z87.891 Personal history of nicotine dependence; X58.XXXA Exposure to other specified factors, initial encounter
CPT/HCPCS: 80053; 99282; 85025; 85379

== ENCOUNTER 2022-02-03 10:50 | Emergency (ER) | payer MEDICARE, SELFPAY ==
[2022-02-03 10:53] VITALS: BP 138/83; PULSE 70; RESP 18; TEMP 36.7; O2SAT 94
--- NOTE | 2022-02-03 10:58 | ED.GENADUL_ITS ---
Discharge Plan Disposition Patient Disposition: HOME Condition: Stable Discharge Details Clinical Impression: Leg pain, right, Encounter to discuss test results Primary Care Provider: Priya Mendoza ED Provider: Galina Iyer Home Meds and New Rx's Prescriptions: No Action fluticasone propion-salmeterol [Advair Diskus] 1 EACH blister with device 1 ea Inhalation BID aspirin 81 mg Tablet 81 mg PO DAILY Spiriva with HandiHaler 18 mcg capsule, w/inhalation device 1 cap INHALATION DAILY Label Comments: INHALE THE CONTENTS OF ONE CAPSULE VIA HANDIHALER BY MOUTH EVERY DAY albuterol sulfate 90 mcg/actuation HFA aerosol inhaler 2 puff INHALATION Q6H PRN (Reason: Shortness Of Breath) Label Comments: INHALE 2 PUFFS BY MOUTH EVERY 6 HOURS NEEDED FOR COUGH AND SHORTNESS OF BREATH levalbuterol HCl 1.25 mg/3 mL Solution For Nebulization 1.25 mg UPD Q6H PRN PRN (Reason: shortness of breath or wheezing) Qty: 90 0RF omeprazole 20 mg tablet,delayed release (DR/EC) 20 mg PO DAILY Qty: 30 0RF Discharge Instructions Instructions: Leg Pain (ED) Additional Instructions: Ultrasound showed no evidence of a deep vein thrombosis or blood clot in your leg. Please follow-up with your primary care provider in the next 3 to 5 days. Referrals: Priya Mendoza [Primary Care Provider] - 3 days Medical Decision Making 1058: Informed by Dr. Bentley with radiology regarding patient's lower extremity which is negative for DVT. HPI General Mode of arrival: ambulatory . Date/Time Provider Initiated Documentation: 02/03/22 10:57 . Limitations to Documentation: no limitations . Information obtained by: patient, RN notes reviewed and old records reviewed . HPI Narrative: Patient here for results of RLE doppler. Results are negative. Related Data Home Medications Medication Instructions Recorded Confirmed fluticasone 250 mcg-salmeterol 50 1 ea inhalation BID 01/29/15 02/03/22 mcg/dose blistr powdr for inhalation (Advair Diskus) aspirin 81 mg tablet 81 mg PO DAILY 03/12/20 02/03/22 albuterol sulfate 90 mcg/actuation 2 puff inhalation Q6H PRN 03/13/20 02/03/22 aerosol inhaler Shortness Of Breath tiotropium bromide 18 mcg capsule 1 cap inhalation DAILY 03/13/20 02/03/22 with inhalation device (Spiriva with HandiHaler) levalbuterol HCl 1.25 mg/3 mL 1.25 mg (3 mL) UPD Q6H PRN PRN 03/14/20 02/03/22 solution for nebulization shortness of breath or wheezing #90 mL omeprazole 20 mg tablet,delayed 20 mg PO DAILY #30 tabs 03/14/20 02/03/22 release Previous Rx's Medication Instructions Recorded levalbuterol HCl 1.25 mg/3 mL 1.25 mg (3 mL) UPD Q6H PRN PRN 03/14/20 solution for nebulization shortness of breath or wheezing #90 mL omeprazole 20 mg tablet,delayed 20 mg PO DAILY #30 tabs 03/14/20 release Allergies Allergy/AdvReac Type Severity Reaction Status Date / Time No Known Allergies Allergy Unverified 02/03/22 10:57 General Stated Complaint: GenMedical RICHARD: 4 Review of Systems All systems reviewed & are unremarkable except as noted in HPI and below Musculoskeletal Musculoskeletal: Reports as per HPI PFSH All Active Problems (Updated 02/03/22 @ 11:12 by Galina Iyer NP) Hypoxia (Acute) Right leg pain (Acute) Leg pain, right (Acute) Encounter to discuss test results (Acute) Low TSH level (Acute) Pulmonary hypertension (Chronic) Discharge planning issues (Acute) DVT prophylaxis (Acute) Acute exacerbation of chronic obstructive pulmonary disease (COPD) (Acute) CAP (community acquired pneumonia) (Acute) Pneumonia (Acute) Medical History Anemia associated with chemotherapy Chronic respiratory failure with hypoxia COPD (chronic obstructive pulmonary disease) COPD (chronic obstructive pulmonary disease) Lung cancer Squamous cell lung cancer Surgical History Mediport placement (~01/2015) DR. MARCELINO HERRERA Social History Smoking/Tobacco Use Status: Former Tobacco Use Smoking risk assessment performed?: Yes Alcohol Intake: current Alcohol Intake frequency: a few times a month Drug use: Never Substance use type: does not use Do you feel safe at home: Yes Do you feel safe in your relationship?: Yes Exam Narrative Exam Narrative: Here for US results Course Vital Signs Vital signs: Vital Signs Temperature 36.7 C 02/03/22 10:53 Pulse 70 02/03/22 10:53 Respiratory Rate 18 02/03/22 10:53 Blood Pressure 138/83 02/03/22 10:53 Pulse Oximetry 94 02/03/22 10:53 Temperature 36.7 C 02/03/22 10:53 Temperature Source Temporal Artery Scan 02/03/22 10:53 Pulse 70 02/03/22 10:53 Respiratory Rate 18 02/03/22 10:53 Respiratory Effort Non-Labored 02/03/22 10:56 Blood Pressure 138/83 02/03/22 10:53 Blood Pressure Position Sitting 02/03/22 10:53 Pulse Oximetry 94 02/03/22 10:53 Oxygen Delivery Method Room Air 02/03/22 10:53 Oxygen Flow Rate 0 02/03/22 10:53 Pain Level 0 02/03/22 10:53
== END 2022-02-03 11:30 | disposition home or self-care (01) ==
PROVIDERS: Emergency Provider Registered Nurse Emergency; PCP Nurse Practitioner Family
DX: M79.604 Pain in right leg (principal); Z71.2 Person consulting for explanation of examination or test findings; J44.9 Chronic obstructive pulmonary disease, unspecified; Z87.891 Personal history of nicotine dependence; Z79.51 Long term (current) use of inhaled steroids
CPT/HCPCS: 99281

== ENCOUNTER → 2022-02-03 11:08 | Outpatient (CLI) | payer MEDICARE, SELFPAY ==
--- NOTE | 2022-02-03 | DI.US_ITS ---
Exam(s) US LOWER EXTREMITY VENOUS RT EXAM: US LOWER EXTREMITY VENOUS RT CLINICAL HISTORY: PAIN RT LEG, M79.604, BRUISING TECHNIQUE: Right lower extremity venous ultrasound performed using grayscale, color-flow, and spectr al Doppler analysis. COMPARISON: No exams were available for comparison FINDINGS: The right common femoral, femoral and popliteal veins demonstrate normal compressibility, augmentatio n, and color Doppler. The posterior tibial veins are patent. The saphenofemoral junction is unremark able. There is no evidence of a Dahl cyst. The soft tissues are unremarkable. IMPRESSION: 1. No evidence of a right lower extremity DVT. 2. Results of this exam have been verbally communicated with provider. DATA REPOSITORY:
== END ==
PROVIDERS: PCP Nurse Practitioner Family; Visit Provider Nurse Practitioner Family
DX: M79.604 Pain in right leg (principal)
CPT/HCPCS: 93971

== ENCOUNTER 2022-02-20 00:06 | Outpatient (CLI) | payer MEDICARE, SELFPAY ==
--- NOTE | 2022-02-20 | DI.CT_ITS ---
Exam(s) CT CHEST/ABD/PEL W EXAM: CT CHEST/ABD/PEL W CLINICAL HISTORY: LUNG CA,S/P TREATMENT,LIVER METS,C78.7. TECHNIQUE: Imaging Protocol: Axial computed tomography images with coronal and sagittal reformatted images were created and reviewed CONTRAST MATERIAL: Intravenous: Omnipaque 350 Contrast volume:100 ml Oral: yes COMPARISON: CT CT CHEST/ABD/PEL W from 01/02/2021 FINDINGS: CHEST: Tracheobronchial tree: Patent where visualized. Mediastinum and Lori: No dominant adenopathy or fluid collection. Pulmonary parenchyma: No consolidation or dominant measurable mass. Severe emphysematous changes and multifocal areas of scarring. Pleura: No effusion or pneumothorax. Lymph nodes: Within normal limits. Aorta: Maximal dimension 3.7 cm ascending portion. Minimal calcification. Pulmonary arteries: Well opacified with IV contrast. No emboli are identified. There is some promin ence of the pulmonary arteries, stable, likely secondary to pulmonary hypertension. Heart: Bones: Stable appearance of compression fractures of T7, T8 and T9. Old lower sternal fracture.. No lytic or blastic lesions. Port overlying left chest. ABDOMEN: Liver: Normal density. No measurable mass. Gallbladder and biliary tract: No radiodense calculus or dilation. Pancreas: Normal density, no abnormal calcifications or inflammatory process. Spleen: Normal. Kidneys: Normal size, contour and axis. No radiodense stones or obstructive uropathy. No masses seen. Adrenal glands: No masses seen. Aorta: Mild interval increase in size of infrarenal saccular abdominal aortic aneurysm, now measuring 5.2 x 5.7 cm compared with 4.7 x 5.3 cm. Lymph nodes: Within normal limits. Soft tissues: Unremarkable. PELVIS: Bladder: Symmetric distention, no gross wall thickening. Bowel: No obstruction or bowel wall thickening. Peritoneal cavity: No ascites, collection or mesenteric inflammatory response. Bones: Degenerative changes. No change superior endplate the clip in the is at L3 and L4 superior en dplates. Reproductive organs: Within normal limits. IMPRESSION: No evidence of recurrence pulmonary mass or adenopathy. Severe emphysematous changes. No evidence of metastatic disease in the abdomen or pelvis. Increase in size of abdominal aortic aneurysm now to 5.7 cm. RADIATION DOSE DELIVERED: 1,084.56mGy.cm Total DLP DATA REPOSITORY: All CT scans at this facility are submitted to the National Radiology Data Registry (NRDR) Dose Index Registry (DIR) with the [employer] (A[employer]). RADIATION OPTIMIZATION: All CT scans at this facility use at least one of these dose optimization te chniques: automated exposure control; mA and/or kV adjustment per patient size (includes targeted exa ms where dose is matched to clinical indication); or iterative reconstruction.
[2022-02-20] MEDS: Barium Sulfate 2% W/V-Creamy Vanilla Smoothie 450 ML BTL PO ×2 (11:38→11:39)
[2022-02-20] MEDS: Omnipaque 350 MG/ML 500 ML BTL-Imaging package IJ (11:41)
== END 2022-02-20 00:26 ==
PROVIDERS: PCP Nurse Practitioner Family; Visit Provider Internal Medicine Hematology & Oncology
DX: C78.7 Secondary malignant neoplasm of liver and intrahepatic bile duct (principal)
CPT/HCPCS: 74177; 71260

== ENCOUNTER 2022-02-20 00:36 | Outpatient (RCR) | payer MEDICARE, SELFPAY ==
[2022-02-20 09:12] LABS: Abs Immature Grans 0.06 10^3/uL (0.0-0.06); Absolute Eosinophil Count 0.32 10^3/uL (0.0-0.7); Absolute Lymphocyte Count 1.48 10^3/uL (1.2-3.4); Absolute Monocyte Count 0.99 10^3/uL (0.1-0.8); Absolute Neutrophil Count 4.88 10^3/uL (1.2-6.7); Basophils % 1.3; Eosinophils % 4.1; HCT 49.2 % (40.0-50.0); Immature Grans % 0.8; Lymphocytes % 18.9; MCH 28.9 pg (27.0-33.0); MCHC 32.5 % (32.0-36.0); MCV 89 fL (80-95); MPV 11.5 fL (8.0-11.0); Monocytes % 12.6; Neutrophils % 62.3; Platelet Count 213 10^3/uL (130-400); RBC 5.54 10^6/uL (4.36-5.78); RDW 13.3 % (11.8-14.1); RDW-SD 43.5 fL; WBC 7.83 10^3/uL (4.4-10.8)
[2022-02-20 09:39] LABS: ALT 23 U/L (16-63); AST 19 U/L (15-37); Albumin 3.2 g/dL (3.4-5.0); Alkaline Phosphatase 97 U/L (46-116); Anion Gap 9.3 mmol/L (3-11); BUN 17 mg/dL (7-18); Bilirubin, Total 0.6 mg/dL (0.2-1.0); CO2 24.7 mmol/L (21.0-32.0); CREATININE 1.1 mg/dL (0.70-1.30); Calcium 8.6 mg/dL (8.5-10.1); Chloride 103 mmol/L (98-107); Estimated GFR 69.57 (mL/min/1.73m2); Glucose 92 mg/dL (74-106); Sodium 137 mmol/L (136-145); TSH 1.68 uIU/mL (0.36-3.74); Total Protein 7.6 g/dL (6.4-8.2)
[2022-02-20] MEDS: Heparin 500 UNITS/5 ML SYRINGE IV (09:49)
[2022-02-20] MEDS: Normal Saline Flush 10 ML SYR IVP (09:50)
== END 2022-02-27 23:59 | disposition home or self-care (01) ==
LOC: INF 00:36
PROVIDERS: PCP Nurse Practitioner Family; Visit Provider Internal Medicine Hematology & Oncology
DX: C34.91 Malignant neoplasm of unspecified part of right bronchus or lung (principal); E03.2 Hypothyroidism due to medicaments and other exogenous substances; Z45.2 Encounter for adjustment and management of vascular access device
CPT/HCPCS: 36591; 80053; 84443; 85025

== ENCOUNTER 2022-09-17 12:07 | Outpatient (RCR) | payer MEDICARE, SELFPAY ==
[2022-09-17] MEDS: Heparin 500 UNITS/5 ML SYRINGE (12:18)
[2022-09-17 12:43] LABS: Abs Immature Grans 0.03 10^3/uL (0.0-0.06); Absolute Basophil Count 0.06 10^3/uL (0.0-0.2); Absolute Eosinophil Count 0.22 10^3/uL (0.0-0.7); Absolute Lymphocyte Count 1.12 10^3/uL (1.2-3.4); Absolute Monocyte Count 0.85 10^3/uL (0.1-0.8); Basophils % 0.9; Eosinophils % 3.2; HCT 48.5 % (40.0-50.0); HGB 15.9 g/dL (13.5-17.5); Immature Grans % 0.4; MCH 27.9 pg (27.0-33.0); MCHC 32.8 % (32.0-36.0); MCV 85 fL (80-95); MPV 11.1 fL (8.0-11.0); Monocytes % 12.2; Neutrophils % 67.3; Platelet Count 200 10^3/uL (130-400); RDW 14.2 % (11.8-14.1); RDW-SD 43.9 fL; WBC 6.98 10^3/uL (4.4-10.8)
[2022-09-17 12:53] LABS: ALT 17 U/L (16-63); AST 21 U/L (15-37); Albumin 3.3 g/dL (3.4-5.0); Alkaline Phosphatase 110 U/L (46-116); BUN 17 mg/dL (7-18); Bilirubin, Total 0.4 mg/dL (0.2-1.0); Calcium 8.7 mg/dL (8.5-10.1); Chloride 102 mmol/L (98-107); Glucose 107 mg/dL (74-106); Potassium 4.2 mmol/L (3.5-5.1); Sodium 134 mmol/L (136-145); Total Protein 7.9 g/dL (6.4-8.2)
[2022-09-17] MEDS: Normal Saline Flush 10 ML SYR IVP (13:08)
== END 2022-09-27 23:59 | disposition home or self-care (01) ==
LOC: INF 12:07
PROVIDERS: Nurse Practitioner Family; PCP Nurse Practitioner Family; Visit Provider Internal Medicine Hematology & Oncology
DX: C34.91 Malignant neoplasm of unspecified part of right bronchus or lung (principal); Z45.2 Encounter for adjustment and management of vascular access device
CPT/HCPCS: 36591; 80053; 85025

== ENCOUNTER 2023-03-25 14:56 | Outpatient (REF) | payer MEDICARE, SELFPAY ==
[2023-03-25 22:09] LABS: FREE T4 1.24 ng/dL (0.76-1.46); TSH 1.04 uIU/mL (0.36-3.74)
[2023-03-26 19:35] LABS: T3,Free 5.6 pg/mL (2.8-5.3)
== END 2023-03-25 14:57 | disposition home or self-care (01) ==
LOC: NCHCN 14:56
PROVIDERS: PCP Nurse Practitioner Family; Visit Provider Nurse Practitioner Family
DX: E04.1 Nontoxic single thyroid nodule (principal); J44.9 Chronic obstructive pulmonary disease, unspecified; R53.83 Other fatigue; R07.9 Chest pain, unspecified; M54.50 Low back pain, unspecified; R39.9 Unspecified symptoms and signs involving the genitourinary system
CPT/HCPCS: 84439; 84443; 84481

== ENCOUNTER 2023-11-02 12:38 | Outpatient (REF) | payer MEDICARE, SELFPAY ==
[2023-11-02 15:49] LABS: FREE T4 1.07 ng/dL (0.76-1.46); TSH 0.81 uIU/Ml (0.36-3.74)
[2023-11-02 22:38] LABS: T3,Free 4.2 pg/mL (2.8-5.3)
== END 2023-11-02 12:39 | disposition home or self-care (01) ==
LOC: NCHCN 12:38
PROVIDERS: PCP Nurse Practitioner Family; Visit Provider Nurse Practitioner Family
DX: E04.1 Nontoxic single thyroid nodule (principal)
CPT/HCPCS: 84439; 84443; 84481

== ENCOUNTER 2023-12-17 15:34 | Observation (INO) | payer MEDICARE, SELFPAY ==
[2023-12-17] VITALS (21 sets, daily range): BP systolic 99–134; BP diastolic 60–110; PULSE 72–162; RESP 15–30; TEMP 37.2–37.7; O2SAT 88–93
--- NOTE | 2023-12-17 15:30 | RT.EKG_ITS ---
APPROVED REPORT Exam: Resting ECG Reason for Exam: Dyspnea Patient Location: E HR:80 bpm ECG Measurements Heart Rate 80 AXIS WY 135 P 23 QRSd 107 QRS 77 QT 369 T 33 QTc 427 Conclusion Sinus rhythm...normal P axis, V-rate 60- 99 Probable inferior infarct, old...Q>35mS, II III aVF Probable anterolateral infarct, old...Q>35mS, abnrm ST-T, V2-V6,I,aVL
--- NOTE | 2023-12-17 16:20 | W.ED.GENAD ---
Discharge Plan Disposition Patient Disposition: Admit to [facility] Discharge Details Clinical Impression: Atrial fibrillation with rapid ventricular response, Acute exacerbation of chronic obstructive pulmonary disease (COPD), Low O2 saturation Primary Care Provider: Priya Mendoza ED Provider: Awilda Rodriguez Home Meds and New Rx's Prescriptions: No Action fluticasone propion-salmeterol [Advair Diskus] 1 EACH blister with device 1 ea Inhalation BID aspirin 81 mg Tablet 81 mg PO DAILY tiotropium bromide [Spiriva with HandiHaler] 18 mcg capsule, w/inhalation device 1 cap INHALATION DAILY Patient Comments: INHALE THE CONTENTS OF ONE CAPSULE VIA HANDIHALER BY MOUTH EVERY DAY albuterol sulfate 90 mcg/actuation HFA aerosol inhaler 2 puff INHALATION Q6H PRN (Reason: Shortness Of Breath) Patient Comments: INHALE 2 PUFFS BY MOUTH EVERY 6 HOURS NEEDED FOR COUGH AND SHORTNESS OF BREATH levalbuterol HCl 1.25 mg/3 mL Solution For Nebulization 1.25 mg UPD Q6H PRN PRN (Reason: shortness of breath or wheezing) Qty: 90 0RF vitamin B complex Tablet 1 tab PO DAILY HPI General Date/Time Provider Initiated Documentation: 12/17/23 15:52. HPI Narrative: Callum is a 78-year-old male with history of COPD and pulmonary hypertension who presents to the emergency department today accompanied by his Amelia for evaluation of shortness of breath increasing over the last 4 to 5 days. He reports that he has used his inhalers with some improvement of symptoms. Denies fever/chills, congestion, sore throat, chest pain, change in baseline cough, abdominal pain, change in bowel/bladder function. He has been hospitalized in the past for pneumonia. Physical exam remarkable for coarse crackles on inspiration in all lung painter. Slightly increased work of breathing, mild retractions noted. Normal heart sounds. Abdomen is soft, nondistended, nontender to palpation. No obvious JVD or pedal edema. O2 sat is noted to be 88% on room air, low 90s on 2 L nasal cannula. DDx includes but is not limited to: COPD exacerbation, pneumonia, CHF, cardiac arrhythmia such as A-fib, anemia, electrolyte imbalance I independently interpreted the following tests: CBC notable for mild leukocytosis, white cell count 10.98. CMP shows mild hyponatremia, sodium 133 with slightly elevated total bili 1.1. COVID/flu/RSV negative. VBG unremarkable. Chest x-ray notable for possible malignancy. 1729: Callum was noted to be in a rapid heart rate, EKG shows A-fib with rate 117. He is asymptomatic, denies palpitations, shortness of breath, dizziness, weakness. BP reassuring, systolic 120s. Will order CTA to rule out PE versus malignancy versus pneumonia. 1814: BP now noted 90/60 manual. Patient continues to be asymptomatic. Heart rate persists in the 130s to 140s, A-fib. Will administer 500 cc bolus, as patient does have slightly tacky, admits that he has been probably drinking less than he should. 1844: BP improved, now 134/62. Callum remains asymptomatic, HR remains in 130s/140s. Awaiting CT scan. 1999: A-fib with RVR persist, patient continues to be asymptomatic and normotensive. Metoprolol 2.5 mg IV x 2 administered with mild improvement in heart rate, however persistent in the 120s to 130s. CT CTA chest negative for acute pathology. Discussed case with Dr. Silveira, hospitalist. Patient to be admitted for new onset A-fib with RVR, hypoxemia of unknown origin, possibly COPD exacerbation. Patient and his are both agreeable with plan of care. He does not have any contraindications to anticoagulation, has bled score 2 indicating 4.1% risk. Related Data Home Medications ?Medication ?Instructions ?Recorded ?Confirmed fluticasone 250 mcg-salmeterol 50 1 ea inhalation BID 01/29/15 12/17/23 mcg/dose blistr powdr for inhalation (Advair Diskus) aspirin 81 mg tablet 81 mg PO DAILY 03/12/20 12/17/23 albuterol sulfate 90 mcg/actuation 2 puff inhalation Q6H PRN 03/13/20 12/17/23 aerosol inhaler Shortness Of Breath tiotropium bromide 18 mcg capsule 1 cap inhalation DAILY 03/13/20 12/17/23 with inhalation device (Spiriva with HandiHaler) levalbuterol HCl 1.25 mg/3 mL 1.25 mg (3 mL) UPD Q6H PRN PRN 03/14/20 12/17/23 solution for nebulization shortness of breath or wheezing #90 mL vitamin B complex 1 tab PO DAILY 12/17/23 12/17/23 Previous Rx's ?Medication ?Instructions ?Recorded levalbuterol HCl 1.25 mg/3 mL 1.25 mg (3 mL) UPD Q6H PRN PRN 03/14/20 solution for nebulization shortness of breath or wheezing #90 mL Allergies Allergy/AdvReac Type Severity Reaction Status Date / Time No Known Allergies Allergy Unverified 12/17/23 16:14 General Stated Complaint: SOB RICHARD: 2 Review of Systems Narrative: see HPI Exam Const General: cooperative and comfortable Nutritional Appearance: thin Neck Neck: normal visual inspection and no JVD Resp Effort & Inspection: retractions supraclavicular (mild) Auscultation: crackles (inspiratory, bilat) Cardio Jugular venous pressure: no JVD Rate: regular rate Rhythm: regular rhythm Pulses: radial pulses present GI Inspection: normal to inspection and non-distended Palpation: soft and nontender Extrem General: no pedal edema Course Vital Signs Vital signs: Vital Signs Temperature 37.4 C 12/17/23 15:46 Pulse 84 12/17/23 15:46 Respiratory Rate 22 12/17/23 15:46 Blood Pressure 126/76 12/17/23 15:46 Pulse Oximetry 88 L 12/17/23 15:46 Temperature 37.4 C 12/17/23 15:46 Temperature Source Temporal Artery Scan 12/17/23 15:46 Pulse 84 12/17/23 15:46 Respiratory Rate 22 12/17/23 15:46 Blood Pressure 126/76 12/17/23 15:46 Pulse Oximetry 88 L 12/17/23 15:46 Oxygen Delivery Method Room Air 12/17/23 15:46 Oxygen Flow Rate 0 12/17/23 15:46 Medical Decision Making Quality:SDOH Health Related Social Needs: No Data to Display PFSH All Active Problems (Updated 12/17/23 @ 21:16 by Awilda Montelongo) Low O2 saturation (Acute) Atrial fibrillation with rapid ventricular response (Acute) Paroxysmal atrial fibrillation with RVR (Acute) Hypoxia (Acute) Low TSH level (Acute) Pulmonary hypertension (Chronic) Discharge planning issues (Acute) DVT prophylaxis (Acute) Acute exacerbation of chronic obstructive pulmonary disease (COPD) (Acute) CAP (community acquired pneumonia) (Acute) Pneumonia (Acute) Medical History Chronic respiratory failure with hypoxia Lung cancer COPD (chronic obstructive pulmonary disease) Anemia associated with chemotherapy COPD (chronic obstructive pulmonary disease) Squamous cell lung cancer Surgical History Mediport placement (~01/2015) DR. MARCELINO HERRERA Social History Smoking/Tobacco Use Status: Former Tobacco Use Smoking risk assessment performed?: Yes Alcohol Intake: current Alcohol Intake frequency: a few times a month Drug use: Never Substance use type: does not use Do you feel safe at home: Yes Do you feel safe in your relationship?: Yes
[2023-12-17 16:41] LABS: BE (Venous) -4 mmol/L (-2-3); HCO3 (Venous) 21 mmol/L (23-28); O2 Sat (Venous) 89 %; TCO2 (Venous) 18 mmol/L (24-29); pCO2 (Venous) 29 mmHg (41-51); pH (Venous) 7.45 (7.31-7.41); pO2 (Venous) 52 mmHg
[2023-12-17 16:44] LABS: Abs Immature Grans 0.03 10^3/uL (0.0-0.06); Absolute Basophil Count 0.07 10^3/uL (0.0-0.2); Absolute Eosinophil Count 0.03 10^3/uL (0.0-0.7); Absolute Lymphocyte Count 0.86 10^3/uL (1.2-3.4); Absolute Monocyte Count 1.38 10^3/uL (0.1-0.8); Absolute Neutrophil Count 8.61 10^3/uL (1.2-6.7); Basophils % 0.6 %; Eosinophils % 0.3 %; HCT 45.2 % (40.0-50.0); HGB 15.5 g/dL (13.5-17.5); Immature Grans % 0.3 %; Lymphocytes % 7.8 %; MCH 29.8 pg (27.0-33.0); MCHC 34.3 % (32.0-36.0); MCV 87 fL (80-95); MPV 11.9 fL (8.0-11.0); Monocytes % 12.6 %; Neutrophils % 78.4 %; Platelet Count 145 10^3/uL (130-400); RBC 5.21 10^6/uL (4.36-5.78); RDW 13.4 % (11.8-14.1); WBC 10.98 10^3/uL (4.4-10.8)
[2023-12-17 17:04] LABS: ALT 14 U/L (16-63); AST 18 U/L (15-37); Albumin 2.9 g/dL (3.4-5.0); Alkaline Phosphatase 90 U/L (46-116); Anion Gap 10.2 mmol/L (3-11); BUN 16 mg/dL (7-18); CO2 21.8 mmol/L (21.0-32.0); Calcium 8.5 mg/dL (8.5-10.1); Chloride 101 mmol/L (98-107); Estimated GFR 77.52 (mL/min/1.73m2); Glucose 120 mg/dL (74-106); Magnesium 1.8 mg/dL (1.8-2.4); Sodium 133 mmol/L (136-145); Total Protein 7.1 g/dL (6.4-8.2); Troponin I < 50 ng/L (< or =60)
--- NOTE | 2023-12-17 17:05 | DI.RAD_ITS ---
Exam(s) XR CHEST 2V PA LATERAL EXAM: XR CHEST 2V PA LATERAL CLINICAL HISTORY: SOB with exertion. TECHNIQUE: 2D digital imaging was performed. COMPARISON: CR XR CHEST 2V PA LATERAL from 01/10/2020 CR,XR XR PORTABLE CHEST AP from 03/12/2020 FINDINGS: 2 views: Distal tip of the left subclavian Port-A-Cath is at the SVC-RA junction, unchanged Heart size tortuous descending thoracic aorta is again noted, unchanged. There is also an abdominal aortic EVAR evident. Advanced COPD emphysematous changes are again noted. There is an area of focal infiltrate in the left upper lobe, slightly more prominent than previous. Some scarring or infiltrate in the right upper lobe also appears slightly increased. No pleural effu sions. No pulmonary edema. IMPRESSION: Advanced COPD. Slight increase in size of bilateral upper lobe findings. Cannot exclude developing malignancies. If clinically indicated follow-up CT scan can be performed. There are no obvious pleural effusions DATA REPOSITORY: RADIATION DOSE DELIVERED:
[2023-12-17 17:26] LABS: NT-proBNP 278 pg/mL (<300)
--- NOTE | 2023-12-17 17:30 | RT.EKG_ITS ---
APPROVED REPORT Exam: Resting ECG Reason for Exam: tachycardia Patient Location: E HR:117 bpm ECG Measurements Heart Rate 117 [place] [id number] P [id number] QRSd 101 QRS 82 QT 339 T 5 QTc 474 Conclusion Atrial fibrillation...V-rate 90-144, irreg A-activity
--- NOTE | 2023-12-17 17:30 | DI.CT_ITS ---
Exam(s) CT CHEST PE CTA EXAM: CT CHEST PE CTA CLINICAL HISTORY: SOB with exertion, concern for malignancy. TECHNIQUE: Imaging Protocol: CT angiography of the chest was performed using pulmonary embolus sulaiman col. Multi planar reconstructions were performed. CONTRAST MATERIAL: Intravenous: Omnipaque 350 Contrast volume: 100 cc COMPARISON: CT CT CHEST/ABD/PEL W from 02/20/2022 FINDINGS: PULMONARY ARTERIES: Satisfactory injection. No evidence of intraluminal filling defects to suggest t he presence of acute pulmonary emboli. LUNGS: Again noted is severe COPD emphysematous change in both lung painter. Unchanged scarring and i nfiltrates in upper lobes as well as elsewhere in lungs appears stable. No new ominous infiltrates n or pleural effusions. No new significant lung nodules MEDIASTINUM: There is no hilar nor mediastinal adenopathy. CARDIAC: Heart size is upper normal. There is no pericardial effusion.Caliber of the thoracic aorta is within normal limits. There is no significant shift of the interventricular septum. PARTIALLY VISUALIZED UPPERMOST ABDOMEN: There is contrast reflux into the intrahepatic IVC and system ic intrahepatic veins. Abdominal aortic aneurysm again noted. However, there is presently an aortic EVAR now evident which was not evident on the prior study of January 2022. This type of study is not adequate for evaluat ing this aortic EVAR. OSSEOUS: No significant osseous lesions.. IMPRESSION: 1. No evidence of acute pulmonary emboli. No evidence of pulmonary infarction.No pleural effusions. 2. Severe COPD emphysematous changes, as was also evident on prior CT scan of January 2020. No new infiltrates nor lung masses nor pleural effusions 3. Abdominal aortic EVAR noted RADIATION DOSE DELIVERED: Total DLP DATA REPOSITORY: All CT scans at this facility are submitted to the National Radiology Data Registry (NRDR) Dose Index Registry (DIR) with the [employer] (ACR). RADIATION OPTIMIZATION: All CT scans at this facility use at least one of these dose optimization te chniques: automated exposure control; mA and/or kV adjustment per patient size (includes targeted exa ms where dose is matched to clinical indication); or iterative reconstruction.
[2023-12-17 17:32] LABS: COVID-19 PCR Negative (Negative); Influenza A PCR Negative (Negative); Influenza B PCR Negative (Negative); RSV PCR Negative (Negative)
[2023-12-17 17:32] LABS: Lab Add On Test DONE
[2023-12-17 17:34] LABS: Source Nasopharynx
[2023-12-17] MEDS: Normal Saline - Diluent 50 ML VIAL IJ (19:17)
[2023-12-17] MEDS: Omnipaque 350 MG/ML 100 ML BTL IJ (19:18)
[2023-12-17 19:56] LABS: Troponin I < 50 ng/L (< or =60)
[2023-12-17] MEDS: Metoprolol 5 MG/5 ML VIAL 2.5 MG IVP ×2 (20:25→20:52)
--- NOTE | 2023-12-17 20:25 | DI.VRAD_ITS ---
PROCEDURE INFORMATION: Exam: CTA Chest With Contrast Exam date and time: 12/17/2023 7:13 PM Age: 78 years old Clinical indication: Shortness of breath; Additional info: SOB with exertion, concern for malignancy TECHNIQUE: Imaging protocol: Computed tomographic angiography of the chest with contrast. Exam focused on the arteries. 3D rendering (Not supervised by radiologist): MIP and/or 3D reconstructed images were created by the technologist. Total images: 2014 Contrast material: OMNI 350; Contrast volume: 100 ml; Contrast route: INTRAVENOUS (IV); COMPARISON: CT CHEST/ABD/PEL W 02/20/2022 11:37 AM FINDINGS: Tubes, catheters and devices: Partially visualized endograft repair abdominal aortic aneurysm. Pulmonary arteries: No filling defect in the pulmonary arterial tree. Aorta: No aortic aneurysm. No aortic dissection. Lungs: Severe COPD including paraseptal and bullous components. Stable areas of lung scarring. No interval suspicious pulmonary nodule/mass. No consolidation. Pleural spaces: No pneumothorax. No pleural effusion. Heart: Hepatic venous reflux consistent with elevated right heart pressure. Lymph nodes: No mediastinal, hilar or axillary adenopathy. Bones/joints: Old midthoracic compression fractures and thoracic kyphosis. Old lower sternal body fracture deformity. Soft tissues: Extrathoracic soft tissues are unremarkable. IMPRESSION: 1. No acute findings/PE/occult malignancy.. 2. Severe COPD. Dictated and Authenticated by: Hipolito Altamirano MD. Ordering:CHRISTIAN Kaiser MD
--- NOTE | 2023-12-17 20:41 | HPE_ITS ---
Date of service: 12/17/23 Time of Service: 20:42 Assessment and Plan Assessment and plan (1) Paroxysmal atrial fibrillation with RVR: Start date: 12/17/23 Status: Acute Assessment and plan: This is a 78-year-old gentleman who has a history of PAF in the past but nothing recurrent recently though he does have minimal medical follow-up by history. He denies any palpitations but did present with atrial fibrillation and RVR in the ED when being seen for exacerbation of his COPD. He chronically has hypoxemia but does not wear oxygen at home but appears to have worsening hypoxia over the last 5 days. He is coughing with exertion and produces sputum which has not changed in color. Because of his rapid ventricular rate and recurrent PAF he was admitted for observation and trending troponins as well as attempting heart rate control with low-dose metoprolol. Long-term he should have echocardiogram updated he should consider Eliquis with his recurring atrial fibrillation. In 2019 his echocardiogram did not reveal enlarged atria and did have preserved left ventricular ejection fraction at about 60%. Patient will be treated for possible bronchitis with his recent exacerbation of severe COPD and emphysema. He will not be placed on steroids but continue on Advair at appropriate dosing of twice daily. He is not retaining CO2. He is a full code. 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 (3) Acute exacerbation of chronic obstructive pulmonary disease (COPD): Status: Acute Assessment and plan: Exacerbated with patient feeling better after treatment in the ED. Increase respiratory care with nebulizers and maintain Advair HFA twice daily. Would not be given steroids at this time. Long-term he should wear his oxygen at home with exertion. He appears to have end-stage COPD with emphysema being tachypneic at rest which is his baseline. 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 He has severe shortness of breath chronically but the last 5 days, this has worsened with the patient having Advair to be used twice daily but only using once daily with Spiriva and he occasionally uses an albuterol nebulizer. He has had production of sputum with cough but this has not changed in color and he has had no fever. He was brought to the ED from prompting by his and was found to have mild hypoxemia which is probably chronic with the patient having oxygen at home though he does not wear it because of inconvenience. He was not retaining CO2 and he had no pneumonia or PE by imaging but severe COPD with emphysema with his worsening hypoxemia. He did feel better after treatments in the ED and was placed on Lovenox for DVT prophylaxis but also because of paroxysmal atrial fibrillation which manifested in the ED with rapid ventricular response. He did receive 2 doses of metoprolol 2.5 mg IV with some decrease in his heart rate in the 140s to the lower 100s but at the time I saw the patient he was back up to 140. He is receiving 12.5 mg of metoprolol every 6 hours but his blood pressure is soft with a systolic blood pressure just above 100. He is not having palpitations or chest pain and he does not know that he is in atrial fibrillation. He has had a problem with atrial fibrillation in the past which may have been around 2019 when he had an echocardiogram which revealed mildly dilated right and left atrium and normal left-ventricular ejection fraction at 60-65% and normal wall motion. At that time he wore a heart monitor with no manifestation of continued atrial fibrillation and he had no further evaluation or treatment at that time. Patient will be admitted for his tachycardia associated with paroxysmal atrial fibrillation and to trend troponins which were negative initially. He will be placed on doxycycline 100 mg twice daily for possible bronchitis and he will remain on O2 supplementation. His echocardiogram needs to be updated but may not be available until the first of next week. If patient is stable, he could go home on metoprolol with more aggressive treatment of his chronic COPD, home O2 and follow-up outpatient echocardiogram. I did suggest that he consider Eliquis long-term and he is on Lovenox at this time. He will consider this before discharge. He is a full code. Review of Systems Narrative: 13 point review of systems otherwise unrevealing or stable. [facility] All Active Problems (Updated 12/17/23 @ 21:16 by Awilda Montelongo) Low O2 saturation (Acute) Atrial fibrillation with rapid ventricular response (Acute) Paroxysmal atrial fibrillation with RVR (Acute) Hypoxia (Acute) Low TSH level (Acute) Pulmonary hypertension (Chronic) Discharge planning issues (Acute) DVT prophylaxis (Acute) Acute exacerbation of chronic obstructive pulmonary disease (COPD) (Acute) CAP (community acquired pneumonia) (Acute) Pneumonia (Acute) Medical History Chronic respiratory failure with hypoxia Lung cancer COPD (chronic obstructive pulmonary disease) Anemia associated with chemotherapy COPD (chronic obstructive pulmonary disease) Squamous cell lung cancer Surgical History Mediport placement (~01/2015) DR. MARCELINO HERRERA Social History Smoking/Tobacco Use Status: Former Tobacco Use Smoking risk assessment performed?: Yes Alcohol Intake: current Alcohol Intake frequency: a few times a month Drug use: Never Substance use type: does not use Housing: house Do you feel safe at home: Yes Do you feel safe in your relationship?: Yes Meds Allergies and Home Medications Allergies Allergy/AdvReac Type Severity Reaction Status Date / Time No Known Allergies Allergy Unverified 12/17/23 16:14 Home Medications ?Medication ?Instructions ?Recorded ?Confirmed ?Type fluticasone 250 mcg-salmeterol 50 1 ea inhalation BID 01/29/15 12/17/23 History mcg/dose blistr powdr for inhalation (Advair Diskus) aspirin 81 mg tablet 81 mg PO DAILY 03/12/20 12/17/23 History albuterol sulfate 90 mcg/actuation 2 puff inhalation Q6H PRN 03/13/20 12/17/23 History aerosol inhaler Shortness Of Breath tiotropium bromide 18 mcg capsule 1 cap inhalation DAILY 03/13/20 12/17/23 History with inhalation device (Spiriva with HandiHaler) levalbuterol HCl 1.25 mg/3 mL 1.25 mg (3 mL) UPD Q6H PRN PRN 03/14/20 12/17/23 Rx solution for nebulization shortness of breath or wheezing #90 mL vitamin B complex 1 tab PO DAILY 12/17/23 12/17/23 History Exam Narrative Exam Narrative: General: Patient appears older than stated age, thin and almost cachectic with tachypnea at rest but able to speak in clear sentences. Does have slight pursed with breathing. This is his baseline. He is alert and oriented x 3. HEENT: Normocephalic, coarsened facial features. Eyes with pupils equal and reactive light symmetric, extraocular move intact and sclera anicteric. Oropharynx with slightly dry mucosa and fair dentition. Neck: Supple without JVD. Back: Kyphotic without CVA tenderness. Lungs: Fair aeration with inspiratory rhonchi and scant diffuse expiratory wheeze but no prolonged expiratory phase. No focalizing rales. Slightly barrel chested. Mild intercostal retractions with inspiration. Heart: Tachycardic rate with irregularly irregular rhythm, no murmurs or gallops appreciated. Abdomen: Scaphoid contour, soft and nontender to palpation with no palpable hepatosplenomegaly. Bowel sounds positive all quadrants. Genitalia/rectal: Exam deferred. Extremities: Without clubbing, cyanosis or pitting edema. Muscle wasting diffusely. Fair capillary refill. Skin: Actinic changes over sun exposed areas, otherwise normal color, warm and dry. No bruising. Neuro: Cranial nerves II through XII gross intact, no focalizing motor deficits. No tremor. Psych: Normal affect and mood. No normal thought processes. Remote and recent memory intact. Results Imaging Imaging Studies: EXAM: XR CHEST 2V PA LATERAL CLINICAL HISTORY: SOB with exertion. TECHNIQUE: 2D digital imaging was performed. COMPARISON: CR XR CHEST 2V PA LATERAL from 01/10/2020 CR,XR XR PORTABLE CHEST AP from 03/12/2020 FINDINGS: 2 views: Distal tip of the left subclavian Port-A-Cath is at the SVC-RA junction, unchanged Heart size tortuous descending thoracic aorta is again noted, unchanged. There is also an abdominal aortic EVAR evident. Advanced COPD emphysematous changes are again noted. There is an area of focal infiltrate in the left upper lobe, slightly more prominent than previous. Some scarring or infiltrate in the right upper lobe also appears slightly increased. No pleural effusions. No pulmonary edema. IMPRESSION: Advanced COPD. Slight increase in size of bilateral upper lobe findings. Cannot exclude developing malignancies. If clinically indicated follow-up CT scan can be performed. Exam: CTA Chest With Contrast Exam date and time: 12/17/2023 7:13 PM Age: 78 years old Clinical indication: Shortness of breath; Additional info: SOB with exertion, concern for malignancy COMPARISON: CT CHEST/ABD/PEL W 02/20/2022 11:37 AM FINDINGS: Tubes, catheters and devices: Partially visualized endograft repair abdominal aortic aneurysm. Pulmonary arteries: No filling defect in the pulmonary arterial tree. Aorta: No aortic aneurysm. No aortic dissection. Lungs: Severe COPD including paraseptal and bullous components. Stable areas of lung scarring. No interval suspicious pulmonary nodule/mass. No consolidation. Pleural spaces: No pneumothorax. No pleural effusion. Heart: Hepatic venous reflux consistent with elevated right heart pressure. Lymph nodes: No mediastinal, hilar or axillary adenopathy. Bones/joints: Old midthoracic compression fractures and thoracic kyphosis. Old lower sternal body fracture deformity. Soft tissues: Extrathoracic soft tissues are unremarkable. IMPRESSION: 1. No acute findings/PE/occult malignancy.. 2. Severe COPD. Labs 12/17/23 16:34 12/17/23 16:34 Labs: Laboratory Results - last 24 hr 12/17/23 12/17/23 12/17/23 16:34 16:48 19:28 WBC 10.98 H RBC 5.21 Hgb 15.5 Hct 45.2 MCV 87 MCH 29.8 MCHC 34.3 RDW 13.4 Plt Count 145 MPV 11.9 H Immature Gran % 0.3 Neutrophils % 78.4 Lymphocytes % 7.8 Monocytes % 12.6 Eosinophils % 0.3 Basophils % 0.6 Nucleated RBC % 0.0 Absolute Neutrophils 8.61 H Absolute Lymphocytes 0.86 L Absolute Monocytes 1.38 H Absolute Eosinophils 0.03 Absolute Basophils 0.07 VBG pH 7.45 H VBG pCO2 29 L VBG pO2 52 VBG HCO3 21 L VBG Total CO2 18 L VBG O2 Saturation 89 VBG Base Excess -4 L Sodium 133 L Potassium 4.0 Chloride 101 Carbon Dioxide 21.8 Anion Gap 10.2 BUN 16 Creatinine 1.0 Est GFR (CKD-EPI 2020) 77.52 Glucose 120 H Calcium 8.5 Magnesium 1.8 Total Bilirubin 1.10 H AST 18 ALT 14 L Alkaline Phosphatase 90 Troponin I < 50 < 50 NT-Pro-B Natriuret Pep 278 Total Protein 7.1 Albumin 2.9 L COVID-19 Source Nasopharynx SARS-CoV-2 (PCR) Negative Influenza Type A (PCR) Negative Influenza Type B (PCR) Negative RSV (PCR) Negative Add-On Test Request DONE Last Vital Signs Temp 37.4 C 12/17/23 16:40 Pulse 143 H 12/17/23 20:25 Resp 28 H 12/17/23 17:30 BP 101/64 12/17/23 20:25 Pulse Ox 91 L 12/17/23 17:30 Time Spent Time spent with Patient: >75 minutes Time was spent: preparing to see the patient(eg.review tests), obtaining and/or reviewing separately otained hiistory, ordering medications,tests, procedures, indepentently interpreting results, counseling the patient and care coordination
[2023-12-17 21:33] LABS: TSH (W/Ref FT4) 0.51 uIU/mL (0.36-3.74)
[2023-12-17] MEDS: Metoprolol 12.5 MG TAB PO (23:09)
[2023-12-17] MEDS: MAGNESIUM SULFATE 2 GM/50 ML BAG IVINF (23:17)
[2023-12-17 23:43] LABS: Troponin I < 50 ng/L (< or =60)
[2023-12-18] VITALS (9 sets, daily range): BP systolic 90–118; BP diastolic 59–81; PULSE 61–125; RESP 20–23; TEMP 36.4–37.2; O2SAT 90–94
--- NOTE | 2023-12-18 00:15 | W.PC.ACHO ---
Registration Status: Primary Language: Preferred Language: ED Information & Data Chief Complaint SOB 12/17/23 22:01 Chief Complaint SOB 12/17/23 16:28 Triage Note cough and SOB increasing 12/17/23 15:46 over the last few days, worse with ambulation better with rest says he can only walk about 100ft before having to sit HX Lung CA Medical / Surgical History (Last Reviewed 12/17/23 @ 20:42 by Leonard Silveira) Chronic respiratory failure with hypoxia Lung cancer COPD (chronic obstructive pulmonary disease) Anemia associated with chemotherapy COPD (chronic obstructive pulmonary disease) Squamous cell lung cancer (Last Reviewed 12/17/23 @ 20:42 by Leonard Silveira) Mediport placement (~01/2015) Most Recent Vital Signs Temperature 37.2 C 12/17/23 22:06 Temperature Source Temporal Artery Scan 12/17/23 21:41 Pulse 125 H 12/18/23 00:11 Pulse Rhythm Regular 12/17/23 22:06 Pulse 74 12/17/23 17:30 Respiratory Rate 20 12/18/23 00:11 Respiratory Effort Short of Breath, Labored 12/17/23 22:06 Respiratory Depth Deep 12/17/23 22:06 Respiratory Pattern Tachypnea 12/17/23 22:06 Blood Pressure 96/77 L 12/18/23 00:11 Blood Pressure Mean 84 12/17/23 16:31 Blood Pressure Position Sitting 12/17/23 16:40 Pulse Oximetry 94 12/18/23 00:11 Oxygen Delivery Method Nasal Cannula 12/18/23 00:11 Oxygen Flow Rate 2 12/18/23 00:11 Pain Level 0 12/17/23 22:06 Allergies No Known Allergies Allergy (Unverified 12/17/23 16:14) Precautions Isolation Standard precaution 12/17/23 22:01 Active Medications Generic Name Dose Route Start Last Admin Trade Name Freq PRN Reason Stop Dose Admin Albuterol/Ipratropium 3 ml 12/18/23 00:00 12/18/23 00:11 Albuterol/Ipratropium 3 Ml Upd Vial UPD Not Given Q6H DMITIRY Magnesium Sulfate 2 gm in 50 mls @ 25 mls/hr 12/18/23 00:00 12/17/23 23:17 IVINF 12/18/23 01:59 25 mls/hr NOW ONE Administration Iohexol 100 ml 12/17/23 19:30 12/17/23 19:18 Omnipaque 350 Mg/Ml 100 Ml Btl IJ 01/16/24 23:59 100 ml DIRECTED DMITRIY Administration Metoprolol Tartrate 12.5 mg 12/18/23 00:00 12/17/23 23:09 Metoprolol 12.5 Mg Tab PO 12.5 mg Q6H DMITRIY Administration Sodium Chloride 50 ml 12/17/23 19:30 12/17/23 19:17 Normal Saline - Diluent 50 Ml Vial IJ 50 ml .FOR DI USE DMITRIY Administration IV IV Catheter Type [Right Saline Lock Forearm] IV Catheter Gauge [Right 20 Forearm] Diet Orders Category Date Time Status Heart Healthy Eating [DIET] Nutrition 12/18/23 Breakfast Active Diagnostics 12/18/23 12/17/23 12/17/23 Range/Units 05:35 23:20 19:28 WBC Pending (4.4-10.8) 10^3/uL RBC Pending (4.36-5.78) 10^6/uL Hgb Pending (13.5-17.5) g/dL Hct Pending (40.0-50.0) % MCV Pending (80-95) fL MCH Pending (27.0-33.0) pg MCHC Pending (32.0-36.0) % RDW Pending (11.8-14.1) % Plt Count Pending (130-400) 10^3/uL MPV Pending (8.0-11.0) fL Immature Gran % % Neutrophils % % Lymphocytes % % Monocytes % % Eosinophils % % Basophils % % Nucleated RBC % (0.0-0.3) % Absolute Neutrophils (1.2-6.7) 10^3/uL Absolute Lymphocytes (1.2-3.4) 10^3/uL Absolute Monocytes (0.1-0.8) 10^3/uL Absolute Eosinophils (0.0-0.7) 10^3/uL Absolute Basophils (0.0-0.2) 10^3/uL VBG pH (7.31-7.41) VBG pCO2 (41-51) mmHg VBG pO2 mmHg VBG HCO3 (23-28) mmol/L VBG Total CO2 (24-29) mmol/L VBG O2 Saturation % VBG Base Excess (-2-3) mmol/L Sodium Pending (136-145) mmol/L Potassium Pending (3.5-5.1) mmol/L Chloride Pending (98-107) mmol/L Carbon Dioxide Pending (21.0-32.0) mmol/L Anion Gap Pending (3-11) mmol/L BUN Pending (7-18) mg/dL Creatinine Pending (0.70-1.30) mg/dL Est GFR (CKD-EPI 2020) Pending (mL/min/1.73m2) Glucose Pending (74-106) mg/dL Calcium Pending (8.5-10.1) mg/dL Magnesium Pending (1.8-2.4) mg/dL Total Bilirubin Pending (0.2-1.0) mg/dL AST Pending (15-37) U/L ALT Pending (16-63) U/L Alkaline Phosphatase Pending (46-116) U/L Troponin I Pending < 50 < 50 (< or =60) ng/L NT-Pro-B Natriuret Pep (<300) pg/mL Total Protein Pending (6.4-8.2) g/dL Albumin Pending (3.4-5.0) g/dL TSH 0.51 (0.36-3.74) uIU/mL COVID-19 Source SARS-CoV-2 (PCR) (Negative) Influenza Type A (PCR) (Negative) Influenza Type B (PCR) (Negative) RSV (PCR) (Negative) Add-On Test Request 12/17/23 12/17/23 Range/Units 16:48 16:34 WBC 10.98 H (4.4-10.8) 10^3/uL RBC 5.21 (4.36-5.78) 10^6/uL Hgb 15.5 (13.5-17.5) g/dL Hct 45.2 (40.0-50.0) % MCV 87 (80-95) fL MCH 29.8 (27.0-33.0) pg MCHC 34.3 (32.0-36.0) % RDW 13.4 (11.8-14.1) % Plt Count 145 (130-400) 10^3/uL MPV 11.9 H (8.0-11.0) fL Immature Gran % 0.3 % Neutrophils % 78.4 % Lymphocytes % 7.8 % Monocytes % 12.6 % Eosinophils % 0.3 % Basophils % 0.6 % Nucleated RBC % 0.0 (0.0-0.3) % Absolute Neutrophils 8.61 H (1.2-6.7) 10^3/uL Absolute Lymphocytes 0.86 L (1.2-3.4) 10^3/uL Absolute Monocytes 1.38 H (0.1-0.8) 10^3/uL Absolute Eosinophils 0.03 (0.0-0.7) 10^3/uL Absolute Basophils 0.07 (0.0-0.2) 10^3/uL VBG pH 7.45 H (7.31-7.41) VBG pCO2 29 L (41-51) mmHg VBG pO2 52 mmHg VBG HCO3 21 L (23-28) mmol/L VBG Total CO2 18 L (24-29) mmol/L VBG O2 Saturation 89 % VBG Base Excess -4 L (-2-3) mmol/L Sodium 133 L (136-145) mmol/L Potassium 4.0 (3.5-5.1) mmol/L Chloride 101 (98-107) mmol/L Carbon Dioxide 21.8 (21.0-32.0) mmol/L Anion Gap 10.2 (3-11) mmol/L BUN 16 (7-18) mg/dL Creatinine 1.0 (0.70-1.30) mg/dL Est GFR (CKD-EPI 2020) 77.52 (mL/min/1.73m2) Glucose 120 H (74-106) mg/dL Calcium 8.5 (8.5-10.1) mg/dL Magnesium 1.8 (1.8-2.4) mg/dL Total Bilirubin 1.10 H (0.2-1.0) mg/dL AST 18 (15-37) U/L ALT 14 L (16-63) U/L Alkaline Phosphatase 90 (46-116) U/L Troponin I < 50 (< or =60) ng/L NT-Pro-B Natriuret Pep 278 (<300) pg/mL Total Protein 7.1 (6.4-8.2) g/dL Albumin 2.9 L (3.4-5.0) g/dL TSH (0.36-3.74) uIU/mL COVID-19 Source Nasopharynx SARS-CoV-2 (PCR) Negative (Negative) Influenza Type A (PCR) Negative (Negative) Influenza Type B (PCR) Negative (Negative) RSV (PCR) Negative (Negative) Add-On Test Request DONE Intake and Output - 24 Hour Total 12/17/23 15:34 thru 12/17/23 22:06 Weight 60.328 kg Falls Risk Assessment History of Falls No History 12/17/23 22:06 Contributing Factors Unstable 12/17/23 16:40 Ambulatory Aids Independent 12/17/23 22:06 Tubes/Lines W/no contributing factors 12/17/23 22:06 Gait Evaluation No gait disturbance 12/17/23 22:06 Cognition No cognitive impairment 12/17/23 22:06 Fall Total Score 10 12/17/23 22:06 Level of Risk Standard/Low Risk 12/17/23 22:06 Problems (Last Reviewed 12/17/23 @ 20:42 by Leonard Silveira) Low O2 saturation (Acute) Atrial fibrillation with rapid ventricular response (Acute) Paroxysmal atrial fibrillation with RVR (Acute) Hypoxia (Acute) Acute exacerbation of chronic obstructive pulmonary disease (COPD) (Acute) v v v v v v v v v Sending and/or Receiving Nurses: Please use comment section below to note any information pertinent to the patient hand-off not included above. Information / Comments: Roberts. Came to the hospital due to shortness of breath and cough. This is increased by exertion. Hx of lung cancer. Afib treated with IV metoprolol 2.5 x2 BP soft 99/60 Pt tachypnic 30 temperature 100 F Report received from:ELIZABETH Sanchez
[2023-12-18] MEDS: Normal Saline Flush 10 ML SYR IVP ×4 (00:19→21:02)
[2023-12-18] MEDS: Doxycycline Hyclate 100 MG CAP PO ×2 (00:21→08:31)
[2023-12-18 01:18] LABS: Bilirubin Negative (Negative); Blood Negative (Negative); Clarity Clear (Clear); Glucose Negative (Negative); Ketones Negative (Negative); Leukocyte Esterase Negative (Negative); Nitrite Negative (Negative); Urobilinogen 0.2 mg/dL (Up to 0.2)
[2023-12-18 05:47] LABS: HCT 48.2 % (40.0-50.0); HGB 16.3 g/dL (13.5-17.5); MCH 29.3 pg (27.0-33.0); MCHC 33.8 % (32.0-36.0); MCV 87 fL (80-95); MPV 12.1 fL (8.0-11.0); Platelet Count 150 10^3/uL (130-400); RBC 5.56 10^6/uL (4.36-5.78); RDW 13.6 % (11.8-14.1); RDW-SD 43.2 fL; WBC 11.25 10^3/uL (4.4-10.8)
[2023-12-18] MEDS: Metoprolol 12.5 MG TAB PO ×2 (05:47→11:26)
[2023-12-18 06:05] LABS: Troponin I < 50 ng/L (< or =60)
[2023-12-18 06:18] LABS: ALT 13 U/L (16-63); AST 15 U/L (15-37); Albumin 2.6 g/dL (3.4-5.0); Alkaline Phosphatase 86 U/L (46-116); Anion Gap 9.2 mmol/L (3-11); BUN 16 mg/dL (7-18); Bilirubin, Total 1.43 mg/dL (0.2-1.0); CO2 20.8 mmol/L (21.0-32.0); CREATININE 1.1 mg/dL (0.70-1.30); Calcium 8.2 mg/dL (8.5-10.1); Chloride 103 mmol/L (98-107); Estimated GFR 69.14 (mL/min/1.73m2); Glucose 97 mg/dL (74-106); Magnesium 2.3 mg/dL (1.8-2.4); Potassium 4.5 mmol/L (3.5-5.1); Sodium 133 mmol/L (136-145); Total Protein 6.7 g/dL (6.4-8.2)
--- NOTE | 2023-12-18 07:15 | RT.EKG_ITS ---
APPROVED REPORT Exam: Resting ECG Reason for Exam: converted to SR Patient Location: I HR:66 bpm ECG Measurements Heart Rate 66 AXIS NH 157 P 56 QRSd 97 QRS 74 QT 423 T 17 QTc 443 Conclusion Sinus rhythm...normal P axis, V-rate 60- 99 Normal Electrocardiogram
[2023-12-18] MEDS: Vitamins B Comp w/C TAB 1 TAB PO (08:31)
[2023-12-18] MEDS: Aspirin 81 MG CHEW PO (08:31)
[2023-12-18] MEDS: Budesonide/Formoterol 160/4.5 6 GM 60 PUFF INH IH ×2 (08:44→19:59)
--- NOTE | 2023-12-18 08:45 | RESPIRATORY ---
Pt advised he has home O2 (2-3L) but doesn't wear it consistently. DME: [facility]
--- NOTE | 2023-12-18 08:58 | PDOC.CMIN ---
Date of service: 12/18/23 Time of Service: 08:58 Care Management Initial Assmt Initial Assessment Reason for Hospitalization: paroxysmal atrial fibrillation with RVR and COPD exacerbation Functional Status/Living Situation Patient Presentation: Ronnell was sitting up in bed when CM met with him. He was pleasant in manner and agreeable to conversation. Ronnell stated that he feeling a little bit better than on admission but is not at baseline. He is requiring nasal oxygen at 2-3 L/min to maintain his oxygen saturation at or above 90%. He has oxygen at home too but doesn't use it as he stated it is inconvenient. 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 He does have several inhalers which he says he does use. 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 He has 2 daughters that help out some as does his . He also has 3 grandchildren who are available to assist. Town of Residence: [place], [place]. Resides with: Spouse Significant Other/Family: Local Employment Status: Employed (self employed raising beef cattle) Instrumental Activities of Daily Living (ADLs): Independent Medications Medication Management: Issues/Barriers (has home oxygen ordered but does not use) with Instructions/Directions Advance Directives Advance Directives: Do you have an Advance Directive: Y 03/12/20 18:49 AD On File at [facility]: Y 03/12/20 18:49 Date Asked 12/17/23 12/17/23 22:19 AD Date Reviewed 12/17/23 12/17/23 22:19 COLST On File at [facility] COLST Date Scanned Code Status Resuscitation Status Full Code Portal Pt does not currently have a portal and education provided: No Insurance Coverage/Financial Issues Insurance: /[facility] Care Team Visit Care Team Role Provider Type Priya Mendoza Primary Care Provider ADV PRACTICE REGISTERED NURSE Awilda Montelongo Emergency Provider NURSE PRACTITIONER Leonard Silveira Admit Provider NON-[facility] STAFF PHYSICIAN Attending Provider Discharge Potential Discharge Needs: PCP F/U Appt Anticipated Barriers to Discharge: None Identified Patient/Family Education Needs: Review discharge instructions, discuss Ask Me Three Transportation: Private vehicle Plan: Anticipate Callum will be discharged home with no new services when medically cleared. He will follow up with his PCP and plan of care and transport with family. CM will follow and continue to support discharge planning considerations. PFSH All Active Problems (Updated 12/18/23 @ 16:48 by Renita Villanueva APRN) Hyponatremia (Acute) Low O2 saturation (Acute) Atrial fibrillation with rapid ventricular response (Acute) Paroxysmal atrial fibrillation with RVR (Acute) Hypoxia (Acute) Low TSH level (Acute) Pulmonary hypertension (Chronic) Discharge planning issues (Acute) DVT prophylaxis (Acute) Acute exacerbation of chronic obstructive pulmonary disease (COPD) (Acute) CAP (community acquired pneumonia) (Acute) Pneumonia (Acute) Medical History Chronic respiratory failure with hypoxia Lung cancer COPD (chronic obstructive pulmonary disease) Anemia associated with chemotherapy COPD (chronic obstructive pulmonary disease) Squamous cell lung cancer Surgical History Mediport placement (~01/2015) DR. MARCELINO HERRERA Social History Smoking/Tobacco Use Status: Former Tobacco Use Smoking risk assessment performed?: Yes Alcohol Intake: current Alcohol Intake frequency: a few times a month Drug use: Never Substance use type: does not use Housing: house Do you feel safe at home: Yes Do you feel safe in your relationship?: Yes SDOH(Care Management) Screening Will the Patient Participate in the Screening?: Yes Do you worry about having a steady place to live?: no Problems where you live: pests such as bugs, ants or mice, mold, lead paints of pipes, smoke detectors missing or not working and water leaks In the past 12 months, have you had to go without electric, gas, oil or water in your home?: no Have you or anyone in your house had to go without enough food to eat?: no Has lack of transportation kept you from medical appointments or from doing things needed for daily living?: no Has anyone in your support network made you feel unsafe for any reason?: no Health Related Social Needs Health related social needs: inadequate housing(Z59.1)
[2023-12-18] MEDS: Enoxaparin 40 MG/0.4 ML SYR SC (09:43)
--- NOTE | 2023-12-18 11:41 | PHA.REVIEW2 ---
Pharmacy Admission Review Admission Clinical Review Admission Pharmacy Review: Low O2 saturation (Acute) Atrial fibrillation with rapid ventricular response (Acute) Paroxysmal atrial fibrillation with RVR (Acute) Hypoxia (Acute) Acute exacerbation of chronic obstructive pulmonary disease (COPD) (Acute) No Known Allergies Allergy (Unverified 12/17/23 16:14) Resuscitation Status Full Code Height 5 ft 10 in Weight 60.4 kg Pharmacy Admission Review Renal Dosing Renal Dosing: BUN 16 mg/dL (7-18) 12/18/23 05:36 Creatinine 1.1 mg/dL (0.70-1.30) 12/18/23 05:36 Medications needing adjustments: Reviewed (CrCl 48 mL/min) List of meds needing interventions: Current medications are okay Anticoagulation Anticoagulation: Hgb 16.3 g/dL (13.5-17.5) 12/18/23 05:36 Hct 48.2 % (40.0-50.0) 12/18/23 05:36 Plt Count 150 10^3/uL (130-400) 12/18/23 05:36 Creatinine 1.1 mg/dL (0.70-1.30) 12/18/23 05:36 DVT Prophylaxis: Reviewed Medications: Enoxaparin (40mg daily) Relevant Labs Relevant Labs: Sodium 133 mmol/L (136-145) L 12/18/23 05:36 Potassium 4.5 mmol/L (3.5-5.1) 12/18/23 05:36 Chloride 103 mmol/L (98-107) 12/18/23 05:36 Magnesium 2.3 mg/dL (1.8-2.4) 12/18/23 05:36 Electrolytes, C-Reactive P, ESR: Reviewed (Na 133, WBC increased from 10.98 to 11.25) Cardiac Review Cardiac Review: Troponin I < 50 ng/L (< or =60) 12/18/23 05:36 NT-Pro-B Natriuret Pep 278 pg/mL (<300) 12/17/23 16:34 Blood Pressure 104/68 1117 Blood Pressure 111/73 0807 Blood Pressure 98/60 0540 Blood Pressure 90/69 0518 Blood Pressure 96/77 0011 BP, HR, EF%: Reviewed (HR currently WNL, has been mostly elevated during admission) QTc Review QTc: Reviewed (474 from 12/17/23) IV to PO Switch IV Medications: Reviewed Home Meds Home Med List reviewed: Intervened Relevent Home Meds Not ordered & why?: Advair substituted with Symbicort per pharmacy protocol Spiriva Handihaler substituted with Spiriva Respimat per pharmacy protocol Current Meds Current Medication Order Review: Reviewed Pharmacy Antibiotic Review Pharmacy Antibiotic Activity: Reviewed, no change Comments: Patient is on PO doxycycline for possible bronchitis per H+P
--- NOTE | 2023-12-18 11:50 | W.PM.PROGNOT ---
Date of Service Date of service: 12/18/23 Time of Service: 11:51 Assessment and Plan Assessment and plan (1) Paroxysmal atrial fibrillation with RVR: Start date: 12/17/23 Status: Acute Assessment and plan: IVP metoprolol given to control rate oral metoprolol 12.5 mg Q 6 ordered, but BP 90's/60-70's s/p IV beta joellen; Will lower the dose to aim for 12.5 mg toprol XL daily if tolerated Conversion to SR, HR 63 Eliquis 2.5 mg PO BIB ; 60 kg Lovenox for DVT prophylaxis stopped Continue telemetry (2) Hypoxia: Status: Acute Assessment and plan: PRN home O2 rarely used On 2l/min Increased SOB with minimal movement in bed (3) Acute exacerbation of chronic obstructive pulmonary disease (COPD): Status: Acute Assessment and plan: Improved exacerbated but breathing is still labored Continue doxycycline - changed to IV Q 12 Prednisone 40 mg po daily Difficulty clearing secretions -IS , vibrapep -Mucinex -Xopenex PRN -Home respiratory regimen medicines CBC in AM (4) Hyponatremia: Status: Acute Assessment and plan: Na 133, water restriction 1l/24 hours NS 250 cc IV BMP in AM Discussed with Dr. Lewis Subjective Subjective Patient reports: no new complaints, feels better, tolerating liquids well, tolerating a regular diet, voiding w/o difficulty, flatus, shortness of breath, afebrile and other (no hematuria, no history of GIB,stroke or ICH, was not aware of PAF ); denies diarrhea, blood in stool, nausea or vomiting Exam Narrative Exam Narrative: Constitutional HENMT: Facial structures with normal appearance Neuro:alert and oriented to self, person, place time and situation. No neurological focal deficit Resp: diminished bases, non-productive cough, clear upper lungs bilaterally Cardio: S1, S2, no murmur, EKG SR, tele SR HR 63 GI: Abdomen is not distended, soft and non tender, bowel sounds are present Psych: RASS 0, congruent mood and normal affect. Objective Last Vital Signs Temp 37.2 C 12/18/23 11:17 Pulse 67 12/18/23 11:17 Resp 22 12/18/23 11:17 BP 104/68 12/18/23 11:17 Pulse Ox 94 12/18/23 11:17 Laboratory Results - last 24 hr 12/17/23 12/17/23 12/17/23 16:34 16:48 19:28 WBC 10.98 H RBC 5.21 Hgb 15.5 Hct 45.2 MCV 87 MCH 29.8 MCHC 34.3 RDW 13.4 Plt Count 145 MPV 11.9 H Immature Gran % 0.3 Neutrophils % 78.4 Lymphocytes % 7.8 Monocytes % 12.6 Eosinophils % 0.3 Basophils % 0.6 Nucleated RBC % 0.0 Absolute Neutrophils 8.61 H Absolute Lymphocytes 0.86 L Absolute Monocytes 1.38 H Absolute Eosinophils 0.03 Absolute Basophils 0.07 VBG pH 7.45 H VBG pCO2 29 L VBG pO2 52 VBG HCO3 21 L VBG Total CO2 18 L VBG O2 Saturation 89 VBG Base Excess -4 L Sodium 133 L Potassium 4.0 Chloride 101 Carbon Dioxide 21.8 Anion Gap 10.2 BUN 16 Creatinine 1.0 Est GFR (CKD-EPI 2020) 77.52 Glucose 120 H Calcium 8.5 Magnesium 1.8 Total Bilirubin 1.10 H AST 18 ALT 14 L Alkaline Phosphatase 90 Troponin I < 50 < 50 NT-Pro-B Natriuret Pep 278 Total Protein 7.1 Albumin 2.9 L TSH 0.51 Urine Color Urine Clarity Urine pH Ur Specific [place] Urine Protein Urine Ketones Urine Blood Urine Nitrite Urine Bilirubin Urine Urobilinogen Ur Leukocyte Esterase Urine Glucose COVID-19 Source Nasopharynx SARS-CoV-2 (PCR) Negative Influenza Type A (PCR) Negative Influenza Type B (PCR) Negative RSV (PCR) Negative Add-On Test Request DONE 12/17/23 12/18/23 12/18/23 23:20 00:54 05:36 WBC 11.25 H RBC 5.56 Hgb 16.3 Hct 48.2 MCV 87 MCH 29.3 MCHC 33.8 RDW 13.6 Plt Count 150 MPV 12.1 H Immature Gran % Neutrophils % Lymphocytes % Monocytes % Eosinophils % Basophils % Nucleated RBC % Absolute Neutrophils Absolute Lymphocytes Absolute Monocytes Absolute Eosinophils Absolute Basophils VBG pH VBG pCO2 VBG pO2 VBG HCO3 VBG Total CO2 VBG O2 Saturation VBG Base Excess Sodium 133 L Potassium 4.5 Chloride 103 Carbon Dioxide 20.8 L Anion Gap 9.2 BUN 16 Creatinine 1.1 Est GFR (CKD-EPI 2020) 69.14 Glucose 97 Calcium 8.2 L Magnesium 2.3 Total Bilirubin 1.43 H AST 15 ALT 13 L Alkaline Phosphatase 86 Troponin I < 50 < 50 NT-Pro-B Natriuret Pep Total Protein 6.7 Albumin 2.6 L TSH Urine Color Yellow Urine Clarity Clear Urine pH 5.0 Ur Specific [place] 1.010 Urine Protein Negative Urine Ketones Negative Urine Blood Negative Urine Nitrite Negative Urine Bilirubin Negative Urine Urobilinogen 0.2 Ur Leukocyte Esterase Negative Urine Glucose Negative COVID-19 Source SARS-CoV-2 (PCR) Influenza Type A (PCR) Influenza Type B (PCR) RSV (PCR) Add-On Test Request Time Spent with Patient Time Spent with Patient: >50 minutes Time was spent: preparing to see the patient(eg.review tests), obtaining and/or reviewing separately otained hiistory, ordering medications,tests, procedures, referring, communicating with other health health care marketing manager, indepentently interpreting results, counseling the patient and care coordination
[2023-12-18] MEDS: Normal Saline 1,000 ML 100 ML IV (13:29)
[2023-12-18] MEDS: predniSONE 20 MG TAB 40 MG PO (13:44)
[2023-12-18] MEDS: guaiFENesin 600 MG TABCR PO ×2 (13:45→20:30)
[2023-12-18] MEDS: Metoprolol 12.5 MG TAB 6.25 MG PO (20:29)
[2023-12-18] MEDS: Apixaban 2.5 MG TAB PO (20:30)
[2023-12-18] MEDS: DOXYCYCLINE 100 MG in Normal Saline 100 ML IVPB (21:01)
[2023-12-19 03:31] VITALS: BP 97/54; PULSE 57; RESP 22; TEMP 36.4; O2SAT 96
[2023-12-19 05:42] LABS: Abs Immature Grans 0.04 10^3/uL (0.0-0.06); Absolute Basophil Count 0.02 10^3/uL (0.0-0.2); Absolute Lymphocyte Count 0.56 10^3/uL (1.2-3.4); Absolute Monocyte Count 0.73 10^3/uL (0.1-0.8); Absolute Neutrophil Count 6.67 10^3/uL (1.2-6.7); Basophils % 0.2 %; HCT 47.1 % (40.0-50.0); HGB 15.9 g/dL (13.5-17.5); Immature Grans % 0.5 %; MCH 29.6 pg (27.0-33.0); MCHC 33.8 % (32.0-36.0); MCV 88 fL (80-95); MPV 12.2 fL (8.0-11.0); Monocytes % 9.1 %; Neutrophils % 83.2 %; Platelet Count 153 10^3/uL (130-400); RBC 5.37 10^6/uL (4.36-5.78); RDW 13.7 % (11.8-14.1); RDW-SD 43.5 fL; WBC 8.02 10^3/uL (4.4-10.8)
[2023-12-19 06:00] LABS: Anion Gap 10.9 mmol/L (3-11); BUN 22 mg/dL (7-18); CO2 21.1 mmol/L (21.0-32.0); Calcium 8.5 mg/dL (8.5-10.1); Chloride 103 mmol/L (98-107); Estimated GFR 77.52 (mL/min/1.73m2); Glucose 121 mg/dL (74-106); Potassium 4.4 mmol/L (3.5-5.1); Sodium 135 mmol/L (136-145)
[2023-12-19 07:34] VITALS: BP 103/62; PULSE 53; RESP 16; TEMP 35.9; O2SAT 93
[2023-12-19] MEDS: Budesonide/Formoterol 160/4.5 6 GM 60 PUFF INH IH (08:04)
[2023-12-19] MEDS: Tiotropium Bromide-Respimat 10 PUFF INH 2 PUFF IH (08:04)
[2023-12-19] MEDS: Vitamins B Comp w/C TAB 1 TAB PO (08:38)
[2023-12-19] MEDS: DOXYCYCLINE 100 MG in Normal Saline 100 ML IVPB (08:38)
[2023-12-19] MEDS: Normal Saline Flush 10 ML SYR IVP (08:38)
[2023-12-19] MEDS: predniSONE 20 MG TAB 40 MG PO (08:39)
[2023-12-19] MEDS: guaiFENesin 600 MG TABCR PO (08:39)
[2023-12-19] MEDS: Aspirin 81 MG CHEW PO (08:39)
[2023-12-19] MEDS: Apixaban 2.5 MG TAB PO (08:39)
--- NOTE | 2023-12-19 09:00 | RT.EKG_ITS ---
APPROVED REPORT Exam: Resting ECG Reason for Exam: bradycardia Patient Location: I HR:65 bpm ECG Measurements Heart Rate 65 AXIS VT 157 P 72 QRSd 113 QRS 75 QT 441 T 51 QTc 459 Conclusion Sinus rhythm...normal P axis, V-rate 60- 99 Nondiagnostic inferior Q waves
--- NOTE | 2023-12-19 09:00 | W.PM.PROGNOT ---
Date of Service Date of service: 12/19/23 Time of Service: 09:00 Assessment and Plan Assessment and plan (1) Paroxysmal atrial fibrillation with RVR: Start date: 12/17/23 Status: Acute Assessment and plan: IVP metoprolol given to control rate oral metoprolol 12.5 mg Q 6 ordered, but BP 90's/60-70's s/p IV beta joellen; Will lower the dose to aim for 12.5 mg toprol XL daily if tolerated HR in the mid 40's SB, will discontinue beta-joellen EKG STAT Conversion to SR, HR 63 [id number] score is 3 & 3.2% risk of stroke Will continue Eliquis 2.5 mg PO BID ; 60 kg monitor for bleeding ASA discontinued Continue telemetry (2) Hypoxia: Status: Acute Assessment and plan: PRN home O2 rarely used On 2l/min Increased SOB with minimal movement in bed (3) Acute exacerbation of chronic obstructive pulmonary disease (COPD): Status: Acute Assessment and plan: Improved exacerbated but breathing is still labored Continue doxycycline - changed to IV Q 12 Prednisone 40 mg po daily Difficulty clearing secretions -IS , vibrapep -Mucinex -Xopenex PRN -Home respiratory regimen medicines CBC in AM (4) Hyponatremia: Status: Acute Assessment and plan: Na 133, water restriction 1l/24 hours and IVF; Na now 135 will continue water restriction BMP in AM Discussed with Dr. Lewis Subjective Subjective Patient reports: no new complaints, feels better, tolerating liquids well, tolerating a regular diet, voiding w/o difficulty, flatus, shortness of breath, afebrile and other (no hematuria, no history of GIB,stroke or ICH, was not aware of PAF ); denies diarrhea, blood in stool, nausea or vomiting Exam Narrative Exam Narrative: Constitutional HENMT: Facial structures with normal appearance Neuro:alert and oriented to self, person, place time and situation. No neurological focal deficit Resp: diminished bases, non-productive cough, clear upper lungs bilaterally Cardio: S1, S2, no murmur, EKG SR, tele SR HR 63 GI: Abdomen is not distended, soft and non tender, bowel sounds are present Psych: RASS 0, congruent mood and normal affect. Objective Last Vital Signs Temp 35.9 C L 12/19/23 07:34 Pulse 53 L 12/19/23 07:34 Resp 16 07/21/24 07:34 BP 103/62 12/19/23 07:34 Pulse Ox 93 12/19/23 07:34 Laboratory Results - last 24 hr 12/19/23 05:06 WBC 8.02 RBC 5.37 Hgb 15.9 Hct 47.1 MCV 88 MCH 29.6 MCHC 33.8 RDW 13.7 Plt Count 153 MPV 12.2 H Immature Gran % 0.5 Neutrophils % 83.2 Lymphocytes % 7.0 Monocytes % 9.1 Eosinophils % 0.0 Basophils % 0.2 Nucleated RBC % 0.0 Absolute Neutrophils 6.67 Absolute Lymphocytes 0.56 L Absolute Monocytes 0.73 Absolute Eosinophils 0.00 Absolute Basophils 0.02 Sodium 135 L Potassium 4.4 Chloride 103 Carbon Dioxide 21.1 Anion Gap 10.9 BUN 22 H Creatinine 1.0 Est GFR (CKD-EPI 2020) 77.52 Glucose 121 H Calcium 8.5
[2023-12-19 10:42] VITALS: O2SAT 93
--- NOTE | 2023-12-19 11:34 | IN_ITS ---
PT Notes Visit Reasons: COPD exacerbation with hypoxemia,PAF with RVR Physical Therapy Inpatient Initial Evaluation Date: 12/19/23 Referring Doctor: Renita Villanueva NP PT Orders: PT CONSULT: Safety consult for D/C Precautions: Fall. Standard. Activity as tolerated. Patient Profile/Admitting Diagnosis: Callum is 78 yo male that presented to the ER on 12/17/23 for increasing shortness of breath the last 4-5 days. He was placed on observation for COPD exacerbation and new onset of atrial fibri llation. PMHX: See EMR Social History/Home Situation: Lives with spouse on farm, has [address], stairs to cellar, possible second level as well, but doesn't need to use. On 2-3L O2 baseline, but doesn't often use. 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 Equipment Owned/DME: Oxygen Subjective: Cleared by nursing to see patient and patient is agreeable to PT. Patient is resting in bed at time of consult and connected to telemetry and on 2L O2 via NC. Objective: General Observation: Pleasant and alert Mental Status: A&O x3 Pain: None reported ROM: Right Upper Extremity: Shoulder Flexion 110 degrees. Shoulder abduction WFL. Elbow flexion WFL. Wrist flexion WFL. Opening and closing of hand WFL. Left Upper Extremity: Shoulder Flexion 90 degrees. Shoulder abduction WFL. Elbow flexion WFL. Wrist flexion WFL. Opening and closing of hand WFL. Right Lower Extremity: Hip flexion WFL. Hip abduction WFL. Knee flexion WFL. Ankle dorsiflexion WFL. Ankle plantarflexion WFL. Left Lower Extremity: Hip flexion WFL. Hip abduction WFL. Knee flexion WFL. Ankle dorsiflexion WFL. Ankle plantarflexion WFL. Strength: Right Upper Extremity: Shoulder flexors 5/5. Shoulder abductors 5/5. Elbow flexors 5/5. Elbow extensors 5/5. Learning Services Coordinator strong. Left Upper Extremity: Shoulder flexors 4/5. Shoulder abductors 5-/5. Elbow flexors 5/5. Elbow extensors 5/5. Learning Services Coordinator strong. Right Lower Extremity: Hip flexors 5/5. Knee flexors 5/5. Knee extensors 5/5. Ankle dorsiflexors 5/5. Ankle plantarflexors 5/5. Left Lower Extremity: Hip flexors 5/5. Knee flexors 5/5. Knee extensors 5/5. Ankle dorsiflexors 5/5. Ankle plantarflexors 5/5. Sensation: Intact as to pain and pressure on bilateral lower extremities. Bed Mobility/Transfers: Rolling: Independent Supine to sit: Independent Sit to supine: Independent Sit to stand: Independent Stand to sit: Independent Gait: Ambulated 300ft x2 with Supervision on 2L O2, reports mild fatigue lower legs and a gets mildy short of breath Stairs: Ascend and descend 6 step x2, 4 step x3 with use of rails Balance: Static Sitting: Normal Dynamic Sitting: Fair Static Standing: Good Dynamic Standing: Fair Special Tests: Mobility Limitations Standardized Measure [facility] AM-PAC 6 clicks Basic Mobility Inpatient Short Form: Raw Score: 24 CMS Score: 0% Informed Consent/Education: Patient instructed in purpose of PT consult and plan of care. Assessment: Callum appears to be at his baseline of mobility. Able to ambulate without assistance. Safe performing stairs. Independent with bed mobility and transfers. No need for acute care PT services and is safe to return open when medically discharged. Patient presents with clinical signs and symptoms consistent with current/admitting diagnoses that have resulted to mobility limitations, gait instability, generalized weakness, and impairment of motor control as demonstrated by the following impairment level findings: 1. Decreased strength to left shoulder major muscle groups 2. Decreased ROM to left shoulder 3. Shortness of breath Impairments are contributing to the following functional limitations: 1. Increased fall risk 2. Increased fatigue secondary to shortness of breath Patient is assessed as a Low complexity based on the following: History: 78 year old male with impairment level findings, functional limitations, and past medical history as indicated above Examination: Demonstrable impairment in strength, balance, and mobility level with underlying impairments and functional limitations as documented above Presentation: Stable Decision Making: Low complexity Plan of Care/Treatment Plan: Consult only Discharge Plan DISCHARGE RECOMMENDATIONS: Home with no services TREATMENT CODE/TIME: 11:06-11:32 (26 minutes), [id number] Thank you for the opportunity to participate in the care of this patient. Erin London, PT, DPT, O[facility] [place], [place]
[2023-12-19 11:48] VITALS: BP 133/85; PULSE 61; RESP 18; TEMP 36.8; O2SAT 96
[2023-12-19 11:54] VITALS: O2SAT 92
--- NOTE | 2023-12-19 16:08 | PDOC.CMDIS ---
Date of service: 12/19/23 Time of Service: 16:08 LACE Index Scoring Tool Questions: Length of Stay (in days): 2 Was the patient admitted via the E.D.?: Yes Comorbidities: Chronic Pulmonary Disease and Any Tumor E.D. Visits: 1 Answers: Total Score: 11 Risk of Readmission: High Risk Care Management Discharge Plan Reason for Hospitalization: atrial fibrillation and COPD Discharge Plan: Bill will be discharged home with no new services. He will follow up with his PCP and plan of care and transport with family. Patient/Family Education Needs: Review discharge instructions, activity, limitations, follow up plan, discuss Ask Me Three. SDOH Health Related Social Needs: Health related social needs inadequate housing Health related social needs: inadequate housing(Z59.1)
--- NOTE | 2023-12-19 16:30 | DSE_ITS ---
<Statement entered by Edgar Lewis - 12/19/23 17:59> apixaban dose corrected, he does not meet criteria for reduced 2.5mg dosing yet, Rx resent at 5mg BID Date of service: 12/19/23 Time of Service: 14:00 DS: Diagnosis Discharge Diagnosis (1) Paroxysmal atrial fibrillation with RVR: Status: Acute (2) Hypoxia: Status: Acute (3) Acute exacerbation of chronic obstructive pulmonary disease (COPD): Status: Acute (4) Hyponatremia: Status: Acute Discharge Plan Disposition Patient Disposition: Home Condition: Improving Discharge Details Reason For Visit: COPD exacerbation with hypoxemia,PAF with RVR Admit Date/Time: 12/17/23 20:45 Admit Provider: Leonard Silveira Attending Provider: Leonard Silveira Primary Care Provider: Priya Mendoza [facility] Course Hospital Course: This 78 years old male patient with a past medical history of COPD with home O2 at 2 to 3 L/min, pulmonary hypertension, tobacco abuse, squamous cell lung cancer, pneumonia, paroxysmal atrial fibrillation with rapid ventricular response presented to the ED at [facility] on 12/17/2023 for evaluation of increasing shortness of breath over previous 4 to 5 days. The patient had been using home inhalers with some improvement. At the time the patient denied chills, fever, congestion, sore throat, chest pain change in baseline cough, abdominal pain, gastrointestinal or genitourinary symptoms. Workup in the ED was significant for mild leukocytosis with a WBC at 10.98, sodium at 133. COVID flu and RSV were negative. VBG was unremarkable. Chest CTA showed no evidence of pulmonary emboli, infarction or pleural effusion. Imaging was remarkable for evidence of severe COPD with emphysematous changes similar to findings on CT scan completed on January 2020; no infiltrate or lung masses seen. Abdominal aortic EVAR noted. EKG showed atrial fibrillation with a rate of 117 initially then later heart rate increased to 130s 140s with patient remaining asymptomatic. Metoprolol 2.5 mg IV x 2 administer with mild improvement in heart rate. The hospitalist was consulted and the patient admitted for paroxysmal atrial fibrillation with rapid ventricular response, possible COPD exacerbation, hypoxemia. During the stay the patient was treated with doxycycline and prednisone and will be discharged on a short course of both medicines. Metoprolol tartrate was initiated at 12.5 mg orally every 6 hours but the patient's blood pressure was in the mid 90s over 60s triggering decrease of the dose to 6.25 mg orally every 12 hours. Overnight the patient heart rate went as low to 46. Metoprolol was discontinued. [id number] score is 3 & 3.2% risk of stroke and upon discussion with patient and family, Eliquis 2.5 mg oral twice a day was started with further management and discussion with primary care provider. Patient and family aware of risk of bleeding. The patient stated that he is feeling better, like baseline. PT recommendation for discharge home without services. Follow-up with PCP within 7 days of discharge. The patient most recent US echocardiogram in 2019 showed a left ventricular ejection fraction of 53% with normal global left ventricular systolic function and normal left ventricular diastolic function. The patient would benefit from a repeat exam as per discussion with his primary care provider. Discussed with Dr. Lewis Home Meds and New Rx's Prescriptions: New Eliquis 2.5 mg tablet 2.5 mg PO BID Qty: 60 0RF prednisone 20 mg tablet 40 mg PO DAILY Qty: 4 0RF doxycycline hyclate 100 mg capsule 100 mg PO BID Qty: 8 0RF Continued fluticasone propion-salmeterol [Advair Diskus] 1 EACH blister with device 1 ea Inhalation BID tiotropium bromide [Spiriva with HandiHaler] 18 mcg capsule, w/inhalation device 1 cap INHALATION DAILY Patient Comments: INHALE THE CONTENTS OF ONE CAPSULE VIA HANDIHALER BY MOUTH EVERY DAY albuterol sulfate 90 mcg/actuation HFA aerosol inhaler 2 puff INHALATION Q6H PRN (Reason: Shortness Of Breath) Patient Comments: INHALE 2 PUFFS BY MOUTH EVERY 6 HOURS NEEDED FOR COUGH AND SHORTNESS OF BREATH levalbuterol HCl 1.25 mg/3 mL Solution For Nebulization 1.25 mg UPD Q6H PRN PRN (Reason: shortness of breath or wheezing) Qty: 90 0RF vitamin B complex Tablet 1 tab PO DAILY Discontinued aspirin 81 mg Tablet 81 mg PO DAILY Discharge Instructions Stand Alone Forms: Nursing Discharge Form Referrals: Priya Mendoza [Primary Care Provider] - (Message left at office for them to call you Wednesday to make a follow up appointment for 1-2 weeks. If you do not hear from them please call then to make follow up appointment. ) Activity:: Activity as Tolerated Equipment/Supplies:: Oxygen (L/min Below) Diet:: heart healthy DS: Summary Time Spent with Patient providing and/or coordinating discharge services: Greater than 30 minutes Status at Discharge Functional status at discharge: independent ambulation Overall status at discharge: patient is progressing back to baseline Mental Status: mental status grossly normal Speech and Movement: speech and movement normal Mood: congruent mood Affect: normal affect Quality:SDOH Health Related Social Needs: Health related social needs inadequate housing Exam Narrative Exam Narrative: Constitutional HENMT: Facial structures with normal appearance Neuro:alert and oriented to self, person, place time and situation. No neur ological focal deficit Resp: increased AP diameter, diminished bases,decreased non-productive cough, clear upper lungs bilaterally Cardio: S1, S2, no murmur, tele SR HR max 81 with ambulation GI: Abdomen is not distended, soft and non tender, bowel sounds are present Psych: RASS 0, congruent mood and normal affect. Psych Mental Status: mental status grossly normal Speech and Movement: speech and movement normal Mood: congruent mood Affect: normal affect DS: Data Vitals/I&O Vitals and I&O: Vital Signs Temperature 36.8 C 12/19/23 11:48 Temperature Source Tympanic 12/19/23 11:48 Pulse 61 12/19/23 11:48 Pulse Rhythm Regular 12/19/23 13:00 Pulse 74 12/17/23 17:30 Respiratory Rate 18 12/19/23 11:48 Respiratory Effort Normal, Non-Labored 12/19/23 13:00 Respiratory Depth Deep 12/19/23 13:00 Respiratory Pattern Normal 12/19/23 13:00 Blood Pressure 133/85 12/19/23 11:48 Blood Pressure Mean 84 12/17/23 16:31 Blood Pressure Position Sitting 12/17/23 16:40 Pulse Oximetry 92 12/19/23 11:54 Oxygen Delivery Method Room Air 12/19/23 11:54 Oxygen Flow Rate 0 12/19/23 11:54 Pain Level 0 12/19/23 11:48 Comment RN Notified 12/19/23 03:31 Intake & Output 12/18/23 12/19/23 12/19/23 23:59 11:59 23:59 Intake Total 950 / 1060 10 Output Total 350 / 950 600 / 950 Balance 950 / 860 -340 / -940 -600 / -940 Intake: IV 350 / 460 10 / 10 Oral 600 / 600 Output: Urine 350 / 950 600 / 950 Other: Urine Color Light Christy Yellow Urine Appearance Clear Clear Urine Odor None Voiding Methods Toilet Toilet Data Completed and Pending Labs on day of discharge: Labs from last 24 hours 12/19/23 05:06 WBC 8.02 RBC 5.37 Hgb 15.9 Hct 47.1 MCV 88 MCH 29.6 MCHC 33.8 RDW 13.7 Plt Count 153 MPV 12.2 H Immature Gran % 0.5 Neutrophils % 83.2 Lymphocytes % 7.0 Monocytes % 9.1 Eosinophils % 0.0 Basophils % 0.2 Nucleated RBC % 0.0 Absolute Neutrophils 6.67 Absolute Lymphocytes 0.56 L Absolute Monocytes 0.73 Absolute Eosinophils 0.00 Absolute Basophils 0.02 Sodium 135 L Potassium 4.4 Chloride 103 Carbon Dioxide 21.1 Anion Gap 10.9 BUN 22 H Creatinine 1.0 Est GFR (CKD-EPI 2020) 77.52 Glucose 121 H Calcium 8.5 PFSH All Active Problems (Updated 12/18/23 @ 16:48 by Renita Villanueva APRN) Hyponatremia (Acute) Low O2 saturation (Acute) Atrial fibrillation with rapid ventricular response (Acute) Paroxysmal atrial fibrillation with RVR (Acute) Hypoxia (Acute) Low TSH level (Acute) Pulmonary hypertension (Chronic) Discharge planning issues (Acute) DVT prophylaxis (Acute) Acute exacerbation of chronic obstructive pulmonary disease (COPD) (Acute) CAP (community acquired pneumonia) (Acute) Pneumonia (Acute) Medical History Chronic respiratory failure with hypoxia Lung cancer COPD (chronic obstructive pulmonary disease) Anemia associated with chemotherapy COPD (chronic obstructive pulmonary disease) Squamous cell lung cancer Surgical History Mediport placement (~01/2015) DR. MARCELINO HERRERA Social History Smoking/Tobacco Use Status: Former Tobacco Use Smoking risk assessment performed?: Yes Alcohol Intake: current Alcohol Intake frequency: a few times a month Drug use: Never Substance use type: does not use Housing: house Do you feel safe at home: Yes Do you feel safe in your relationship?: Yes Time Spent with Patient Time Spent with Patient: 70-84 minutes4 Time was spent: preparing to see the patient(eg.review tests), obtaining and/or reviewing separately otained hiistory, ordering medications,tests, procedures, referring, communicating with other health med care manager, indepentently interpreting results, counseling the patient and care coordination
== END 2023-12-19 17:43 | disposition home or self-care (01) ==
LOC: ER 21:16 → MS 22:00
PROVIDERS: Nurse Practitioner Acute Care; Admitting Provider Family Medicine; Emergency Provider Nurse Practitioner Family; PCP Nurse Practitioner Family; Visit Provider Family Medicine
DX: I48.0 Paroxysmal atrial fibrillation (principal); J44.1 Chronic obstructive pulmonary disease with (acute) exacerbation; E87.1 Hypo-osmolality and hyponatremia; I27.20 Pulmonary hypertension, unspecified; J96.11 Chronic respiratory failure with hypoxia; Z87.891 Personal history of nicotine dependence; Z85.118 Personal history of other malignant neoplasm of bronchus and lung
CPT/HCPCS: 00123; 36415; 71275; 80048; 80053; 82805; 85027; 87637; 93005; 94640; 96361; 96365; 96366; 96367; 96372; 96375; 97161; 99285; J1650; 71046; 81003; 83735; 83880; 84443; 84484; 85025; 93010; 94664; 94667; 94668; 94760; 99223; 99233; 99239; G0378; J3475; J3490; J7512

== ENCOUNTER 2024-01-20 02:25 | Outpatient (CLI) | payer MEDICARE, SELFPAY ==
--- NOTE | 2024-01-20 | DI.CT_ITS ---
Exam(s) CT CHEST/ABD/PEL W EXAM: CT CHEST/ABD/PEL W CLINICAL HISTORY: NSCLC mets, assess treatment response, mets to liver, C78.7. TECHNIQUE: Imaging Protocol: Axial computed tomography images with coronal and sagittal reformatted images were created and reviewed CONTRAST MATERIAL: Intravenous: Omnipaque 350 Contrast volume:100 ml Oral: yes / COMPARISON: CT CT CHEST/ABD/PEL W from 02/20/[address] CHEST PE CTA from 12/17/2023 FINDINGS: CHEST: Tracheobronchial tree: Patent. Pulmonary parenchyma: No consolidation or dominant measurable mass. Severe emphysematous changes. S table bilateral upper lobe scarring. Stable scarring right lower lobe. No visible mass. Pleura: No effusion or pneumothorax. Mediastinum: Within normal limits. Aorta: Thoracic portion non-dilated. Pulmonary arteries: No visible emboli. Mildly prominent vessels may be secondary to pulmonary arter y hypertension. Heart: No pericardial effusion. Bones: Unremarkable for age. No lytic or blastic lesions.Stable moderate to severe midthoracic comp ression fractures. Soft tissues: Port over left upper chest. ABDOMEN and PELVIS: Liver: Normal density. No measurable mass. Gallbladder and biliary tract: No evidence of stones or wall thickening. No biliary dilatation. Pancreas: Normal density, no abnormal calcifications or inflammatory process. Spleen: Normal. Kidneys: Normal size, contour and axis. No radiodense stones. No obstructive uropathy. No suspicious masses seen. Adrenal glands: No masses seen. Aorta: Aneurysm again noted with stents in place. Lymph nodes: Within normal limits. Soft tissues: Unremarkable. Bladder: Unremarkable. Bowel: No obstruction or bowel wall thickening. Peritoneal cavity: No ascites. No focal collection. No mesenteric inflammatory response. No free ai r. Bones: Stable mild compression fractures. Mild scoliosis. Degenerative changes. Reproductive organs: Prostate mildly enlarged. IMPRESSION: No evidence of recurrence mass or metastatic disease in the chest, abdomen or pelvis. RADIATION DOSE DELIVERED: Total DLP DATA REPOSITORY: All CT scans at this facility are submitted to the National Radiology Data Registry (NRDR) Dose Index Registry (DIR) with the [employer] (A[employer]). RADIATION OPTIMIZATION: All CT scans at this facility use at least one of these dose optimization te chniques: automated exposure control; mA and/or kV adjustment per patient size (includes targeted exa ms where dose is matched to clinical indication); or iterative reconstruction.
[2024-01-20] MEDS: Barium Sulfate 2% W/V-Berry Smoothie 450 ML BTL PO ×2 (10:55→10:56)
[2024-01-20] MEDS: Normal Saline - Diluent 50 ML VIAL IJ (13:04)
[2024-01-20] MEDS: Omnipaque 350 MG/ML 100 ML BTL IJ (13:07)
== END 2024-01-20 02:45 ==
LOC: DI 02:25
PROVIDERS: PCP Nurse Practitioner Family; Visit Provider Internal Medicine Hematology & Oncology
DX: C78.7 Secondary malignant neoplasm of liver and intrahepatic bile duct (principal); J44.0 Chronic obstructive pulmonary disease with (acute) lower respiratory infection
CPT/HCPCS: 74177; 71260; J3490

== ENCOUNTER 2024-01-20 03:25 | Outpatient (RCR) | payer MEDICARE, SELFPAY ==
[2024-01-20] MEDS: Normal Saline Flush 10 ML SYR IVP (10:39)
[2024-01-20 10:50] LABS: Abs Immature Grans 0.01 10^3/uL (0.0-0.06); Absolute Basophil Count 0.07 10^3/uL (0.0-0.2); Absolute Eosinophil Count 0.27 10^3/uL (0.0-0.7); Absolute Lymphocyte Count 1.24 10^3/uL (1.2-3.4); Absolute Monocyte Count 0.84 10^3/uL (0.1-0.8); Basophils % 1.1 %; Eosinophils % 4.1 %; HCT 48.9 % (40.0-50.0); HGB 16.1 g/dL (13.5-17.5); Immature Grans % 0.2 %; Lymphocytes % 18.7 %; MCH 29.2 pg (27.0-33.0); MCHC 32.9 % (32.0-36.0); MCV 89 fL (80-95); MPV 11.2 fL (8.0-11.0); Monocytes % 12.7 %; Neutrophils % 63.2 %; Platelet Count 156 10^3/uL (130-400); RBC 5.51 10^6/uL (4.36-5.78); RDW-SD 45.3 fL; WBC 6.63 10^3/uL (4.4-10.8)
[2024-01-20 11:15] LABS: ALT 15 U/L (16-63); AST 24 U/L (15-37); Albumin 3.1 g/dL (3.4-5.0); Alkaline Phosphatase 101 U/L (46-116); Anion Gap 8.2 mmol/L (3-11); BUN 12 mg/dL (7-18); Bilirubin, Total 0.71 mg/dL (0.2-1.0); CO2 24.8 mmol/L (21.0-32.0); Chloride 103 mmol/L (98-107); Estimated GFR 77.04 (mL/min/1.73m2); Glucose 86 mg/dL (74-106); Potassium 4.1 mmol/L (3.5-5.1); Sodium 136 mmol/L (136-145); TSH 1.19 uIU/Ml (0.36-3.74); Total Protein 7.8 g/dL (6.4-8.2)
== END 2024-01-29 23:59 | disposition home or self-care (01) ==
LOC: INF 03:25
PROVIDERS: PCP Nurse Practitioner Family; Visit Provider Internal Medicine Hematology & Oncology
DX: E03.2 Hypothyroidism due to medicaments and other exogenous substances (principal); C78.7 Secondary malignant neoplasm of liver and intrahepatic bile duct; Z45.2 Encounter for adjustment and management of vascular access device
CPT/HCPCS: 36591; 80053; 84443; 85025

== ENCOUNTER 2024-08-09 13:30 | Outpatient (RCR) | payer MEDICARE, SELFPAY ==
[2024-08-09] MEDS: Normal Saline Flush 10 ML SYR IVP (13:37)
[2024-08-09 13:45] LABS: Abs Immature Grans 0.05 10^3/uL (0.0-0.06); Absolute Basophil Count 0.04 10^3/uL (0.0-0.2); Absolute Lymphocyte Count 0.89 10^3/uL (1.2-3.4); Absolute Monocyte Count 0.74 10^3/uL (0.1-0.8); Absolute Neutrophil Count 6.95 10^3/uL (1.2-6.7); Basophils % 0.5 %; Eosinophils % 1.1 %; HCT 48.8 % (40.0-50.0); Immature Grans % 0.6 %; Lymphocytes % 10.1 %; MCH 29.1 pg (27.0-33.0); MCHC 32.8 % (32.0-36.0); MCV 89 fL (80-95); MPV 10.8 fL (8.0-11.0); Monocytes % 8.4 %; Neutrophils % 79.3 %; Platelet Count 151 10^3/uL (130-400); RDW 13.9 % (11.8-14.1); RDW-SD 44.9 fL; WBC 8.77 10^3/uL (4.4-10.8)
[2024-08-09 14:09] LABS: ALT 22 U/L (16-63); AST 23 U/L (15-37); Albumin 3.3 g/dL (3.4-5.0); Alkaline Phosphatase 120 U/L (46-116); Anion Gap 9.1 mmol/L (3-11); BUN 18 mg/dL (7-18); Bilirubin, Total 0.6 mg/dL (0.2-1.0); CO2 23.9 mmol/L (21.0-32.0); Calcium 8.5 mg/dL (8.5-10.1); Chloride 104 mmol/L (98-107); Estimated GFR 77.04 (mL/min/1.73m2); Glucose 92 mg/dL (74-106); Potassium 4.2 mmol/L (3.5-5.1); Sodium 137 mmol/L (136-145); Total Protein 7.4 g/dL (6.4-8.2)
== END 2024-08-28 23:59 | disposition home or self-care (01) ==
LOC: INF 13:30
PROVIDERS: PCP Nurse Practitioner Family; Visit Provider Internal Medicine Hematology & Oncology
DX: C34.91 Malignant neoplasm of unspecified part of right bronchus or lung (principal); E03.2 Hypothyroidism due to medicaments and other exogenous substances
CPT/HCPCS: 36591; 80053; 84443; 85025

== ENCOUNTER 2025-01-25 03:53 | Outpatient (RCR) | payer MEDICARE, SELFPAY ==
[2025-01-25 13:34] LABS: Abs Immature Grans 0.03 10^3/uL (0.0-0.06); HCT 49.8 % (40.0-50.0); HGB 16.5 g/dL (13.5-17.5); Immature Grans % 0.4 %; MCH 29.7 pg (27.0-33.0); MCHC 33.1 % (32.0-36.0); MCV 90 fL (80-95); MPV 11.2 fL (8.0-11.0); Platelet Count 204 10^3/uL (130-400); RBC 5.55 10^6/uL (4.36-5.78); RDW 14.0 % (11.8-14.1); RDW-SD 46.8 fL; WBC 8.24 10^3/uL (4.4-10.8)
[2025-01-25] MEDS: Normal Saline Flush 10 ML SYR IVP (13:39)
[2025-01-25 14:02] LABS: TSH 0.85 uIU/mL (0.36-3.74)
== END 2025-01-28 23:59 | disposition home or self-care (01) ==
LOC: INF 03:53
PROVIDERS: PCP Nurse Practitioner Family; Visit Provider Internal Medicine Hematology & Oncology
DX: E03.2 Hypothyroidism due to medicaments and other exogenous substances (principal); C34.91 Malignant neoplasm of unspecified part of right bronchus or lung; Z45.2 Encounter for adjustment and management of vascular access device
CPT/HCPCS: 36591; 84443; 85025

== ENCOUNTER 2025-01-25 13:49 | Outpatient (CLI) | payer MEDICARE, SELFPAY ==
--- NOTE | 2025-01-25 | DI.CT_ITS ---
Exam(s) CT CHEST WO EXAM: CT CHEST WO CLINICAL HISTORY: SQUAMOUS CELL RT LUNG CA,C34.91. TECHNIQUE: Imaging protocol: Axial computed tomography images were obtained and coronal and sagittal reformatted images were created and reviewed. Lung Computer Aided Detection (CAD) was utilized. COMPARISON: CT CT CHEST/ABD/PEL W from 02/20/[address] CHEST PE CTA from 12/17/[address] CHEST/ABD/PEL W from 01/20/2024 FINDINGS: The examination is limited due to patient motion artifact. Tracheobronchial tree: Patent where visualized. No bronchiectasis is present. Pulmonary parenchyma: Marked emphysematous changes are present in the lungs. There is a new opacity in the right lower lobe measuring 2.2 x 1.5 cm (series 2, image 75). There is otherwise stable opacity/scarring in the lungs, particularly in the lung apices. Mediastinum and Lori: No dominant adenopathy or fluid collection. The esophagus is unremarkable. Thyroid gland: Unremarkable. Pleura: No effusion or pneumothorax. Heart: The heart is not dilated. Coronary artery calcifications are present. No pericardial effusion. Aorta: The ascending thoracic aorta measures 4.0 x 3.8 cm. Atherosclerotic calcification is present. Upper abdomen: There is an endovascular stent within and robinson abdominal aortic aneurysm. This appears stable. Lymph nodes: Within normal limits. Tubes, Catheters, and Lines: There is a port in the anterior left chest wall. Soft tissues: Unremarkable. Bones:Within normal limits for the patient's age. There are stable midthoracic compression fracture deformities. No suspicious lytic or sclerotic lesions are seen. There is an old inferior sternal fracture. IMPRESSION: 1. New opacity in the right lower lobe. Differential considerations include malignancy, atelectasis or pneumonia. 2. Marked pulmonary emphysema. RADIATION DOSE DELIVERED: 120.78mGy.cm Total DLP 120.78mGy.cm Total DLP DATA REPOSITORY: All CT scans at this facility are submitted to the National Radiology Data Registry (NRDR) Dose Index Registry (DIR) with the [employer] (ACR). RADIATION OPTIMIZATION: All CT scans at this facility use at least one of these dose optimization techniques: automated exposure control; mA and/or kV adjustment per patient size (includes targeted exams where dose is matched to clinical indication); or iterative reconstruction.
== END 2025-01-25 14:09 ==
LOC: DI 13:50
PROVIDERS: PCP Nurse Practitioner Family; Visit Provider Internal Medicine Hematology & Oncology
DX: C34.91 Malignant neoplasm of unspecified part of right bronchus or lung (principal)
CPT/HCPCS: 71250

== ENCOUNTER 2025-02-14 03:19 | Outpatient (RCR) | payer MEDICARE, SELFPAY ==
[2025-02-14] MEDS: Normal Saline Flush 10 ML SYR IVP (14:41)
[2025-02-14 14:56] LABS: ALT 17 U/L (16-63); AST 21 U/L (15-37); Albumin 3.1 g/dL (3.4-5.0); Alkaline Phosphatase 108 U/L (46-116); Anion Gap 8.8 mmol/L (3-11); BUN 17 mg/dL (7-18); Bilirubin, Total 0.6 mg/dL (0.2-1.0); CO2 25.2 mmol/L (21.0-32.0); Calcium 8.7 mg/dL (8.5-10.1); Chloride 103 mmol/L (98-107); Glucose 119 mg/dL (74-106); Potassium 4.3 mmol/L (3.5-5.1); Sodium 137 mmol/L (136-145); Total Protein 7.5 g/dL (6.4-8.2)
== END 2025-02-27 23:59 | disposition home or self-care (01) ==
LOC: INF 03:19
PROVIDERS: PCP Nurse Practitioner Family; Visit Provider Internal Medicine Hematology & Oncology
DX: E03.2 Hypothyroidism due to medicaments and other exogenous substances (principal); C34.91 Malignant neoplasm of unspecified part of right bronchus or lung; Z45.2 Encounter for adjustment and management of vascular access device
CPT/HCPCS: 36591; 80053